=== PATIENT | male | born 1945 | race African-American/Black ===

== ENCOUNTER 2016-11-12 10:00 | Inpatient (IN) | payer MEDICARE, OTHER ==
[~2016-11-12] VITALS: Ht 185.4 cm; Wt 77.6 kg
[2016-11-12] VITALS (15 sets, daily range): BP systolic 116–137; BP diastolic 69–87; PULSE 82–110; RESP 16–22; TEMP 97.8–102.8; O2SAT 90–98
[~2016-11-12 10:00] MED LIST: ALBU0.63 NEB; ALPR.25 PO; ASCO500C PO; BACI500O9 TOPICAL; BENA25CA2 PO; CEFT500T3 PO; COLA100C3 PO; DILT30TA PO; DULO1CAP PO; FERR325T PO; FINA5TAB2 PO; FLEE5TAB PO; FLUT1INH INH; FURO1TAB62 PO; LEVO150T7 PO; MENT4GEL2 TOPICAL; NITR1SUB2 SL; NORC5TAB PO; OMNI1SUS RIGHT EYE; POLY99.0 EACH EYE; PRED20 PO; SINE25TA PO; TAMS5CAP PO
[2016-11-12] MEDS ORDERED: SODIUM CHLOR 0.9% 1000 ML INJ 400 ML IV ONE (10:26)
[2016-11-12] MEDS ORDERED: SODIUM CHLOR 0.9% 1000 ML INJ 1,000 ML IV ONE ×2 (10:26)
[2016-11-12] MEDS ORDERED: VANCOMYCIN INJ 1,000 MG in SODIUM CHLOR 0.9% 250 ML INJ 250 ML IV STA (10:26)
[2016-11-12] MEDS ORDERED: PIPERACIL-TAZO 4.5 GM PREMIX 100 ML IV STA (10:26)
[2016-11-12] MEDS ORDERED: ACETAMINOPHEN 650 MG SUPP RECTAL ONE (10:30)
--- NOTE | 2016-11-12 10:32 | PD ---
HPI Chief Complaint: Chest Pain Time Seen by Provider: 10:21 Travel History International Travel<30 days: No Contact w/Intl Traveler<30days: No Traveled to known affect area: No History of Present Illness HPI 71-year-old male came to the emergency room brought by EMS from the long-term with history of chest pain and fever. Patient has history of CVA and nonambulatory. Since this morning is been complaining of chest pain. His temperature by Jane was 101 and here it's 102.5 rectally. Patient is tachycardic. No history of vomiting or diarrhea. Patient is not much conversant and hard to get history out of. Most of the history is obtained from paramedics and the paperwork from the long-term. Patient has an indwelling Mazariegos catheter. [facility] Past Medical History Narrative Medical List of his past medical history as reviewed from the nursing note. Anemia: Yes Arthritis: Yes Asthma: Yes Atrial Fibrillation: Yes Autoimmune Disease: No Blood Disorders: Yes Anxiety: No Depression: No Heart Rhythm Problems: Yes (a-fib ) Cancer: No Cardiovascular Problems: Yes (AFIB) High Cholesterol: Yes Chemotherapy: No Chest Pain: No Congestive Heart Failure: No COPD: Yes Cerebrovascular Accident: Yes Coronary Artery Disease: No Diabetes: No Diminished Hearing: No Endocrine: Yes Gastrointestinal Disorders: Yes GERD: No Glaucoma: No Genitourinary: Yes Headaches: No Hepatitis: No Hiatal Hernia: No Hypertension: Yes Immune Disorder: No Implanted Vascular Access Dvce: Yes Kidney Stones: No Musculoskeletal: Yes Neurologic: Yes (NEUROGENIC BLADDER) Parkinson's Disease: Yes Psychiatric: No Reproductive: No Immunizations Current: No Migraines: No Myocardial Infarction: No Pneumonia: Yes Radiation Therapy: No Renal Failure: No Seizures: No Sickle Cell Disease: No Sleep Apnea: No Thyroid Disease: Yes (HYPO) Ulcer: No PNEUMOCCOCAL Vaccine (Year): 2 ?: Not Past Surgical History Abdominal Surgery: Yes AICD: No Appendectomy: Yes Arteriovenous Shunt: No Body Medical Devices: Spinal stimulator Cardiac Surgery: No Cholecystectomy: Yes Ear Surgery: No Endocrine Surgery: No Eye Surgery: No Genitourinary Surgery: No Gynecologic Surgery: No Insulin Pump: No Joint Replacement: No Neurologic Surgery: No Oral Surgery: No Pacemaker: No Thoracic Surgery: No Other Surgery: Yes (removed bones from feet, stimulator to your back, teeth extractions) Social History Alcohol Use: No Tobacco Use: No Substance Use: No Allergies-Medications (Allergen,Severity, Reaction): Coded Allergies: MRI PRECAUTION (Verified Allergy, Severe, PT HAS INTERNAL STIMULATOR (ME) , 11/12/16) Vancomycin (Verified Allergy, Mild, Rash, 11/13/16) developed hives, pruritus *MDRO Multi-Drug Resistant Organism (Verified Adverse Reaction, Unknown, ) MRSA PCR Screen positive 09/29/15. Comments List of his allergies reviewed from the long-term. Reported Meds & Prescriptions Reported Meds & Active Scripts Active Prednisone 20 Mg Tab 20 Mg PO DAILY 7 Days Reported Xanax (Alprazolam) 0.25 Mg Tab 0.25 Mg PO Q8HR PRN [place] (Hydrocodone-Acetaminophen) 5-325 mg Tab 1 Tab PO Q4H PRN Duragesic Patch 72 HR (Fentanyl) 75 Mcg/Hr Patch 75 Mcg T-DERMAL Q72H Remove old patch when new one placed. Mapap (Acetaminophen) 500 Mg Tab 500 Mg PO Q4HR PRN Duoneb (Ipratropium-Albuterol Neb) 0.5-2.5 Mg/3 Ml Neb 1 Nebule INH TID NEB Ditropan XL 24 HR (Oxybutynin Chloride) 10 Mg Tab 10 Mg PO BID Advair Diskus Inh (Fluticasone-Salmeterol Inh) 250-50 Mcg/Blist Aer 1 Puff INH BID Rinse mouth after use. Protonix Liq (Pantoprazole Sodium) 40 Mg Pkt 40 Mg PO DAILY Fluoxetine (Fluoxetine HCl) 20 Mg Cap 20 Mg PO DAILY Ferrous Sulfate 325 Mg Tab 325 Mg PO DAILY Albuterol Neb (Albuterol Sulfate) 0.63 Mg/3 Ml Neb 0.63 Mg NEB Q4HR NEB PRN Omnipred Opth Drops (Prednisolone Acetate Opth Drops) 1% Susp 1 Drop RIGHT EYE DAILY Nitroglycerin SL (Nitroglycerin) 0.3 Mg Subl 0.3 Mg SL DIRECTED PRN ONE TABLET UNDER THE TONGUE NEEDED FOR CHEST PAIN, MAY REPEAT EVERY FIVE MINUTES FOR A TOTAL OF 3 DOSES OR CALL 911 IF NO RELIEF Levothyroxine (Levothyroxine Sodium) 150 Mcg Tab 150 Mcg PO DAILY Lasix (Furosemide) 20 Mg Tab 20 Mg PO DAILY Flomax (Tamsulosin HCl) 0.4 Mg Cap 0.4 Mg PO HS Breo Ellipta Inh (Fluticasone/Vilanterol) 100-25 Mcg/Act Inh 1 Puff INH DAILY Use daily at the same time. Sinemet (Carbidopa-Levodopa) 25-100 Mg Tab 1 Tab PO Q8HR Diltiazem (Diltiazem HCl) 30 Mg Tab 30 Mg PO QID Finasteride 5 Mg Tab 5 Mg PO DAILY Do not crush. Duloxetine DR (Duloxetine HCl) 20 Mg Capdr 20 Mg PO BID Narrative Medication List of his home medications reviewed from the nursing note. Review of Systems Except as stated in HPI: all other systems reviewed are Neg Physical Exam Narrative GENERAL: Awake, alert, moderate distress, moaning, nonambulatory SKIN: Warm and dry. HEAD: Atraumatic. Normocephalic. EYES: Pupils equal and round. No scleral icterus. No injection or drainage. ENT: No nasal bleeding or discharge. Mucous membranes pink and moist. NECK: Trachea midline. No JVD. CARDIOVASCULAR: Regular rate and rhythm. No murmur appreciated. RESPIRATORY: No accessory muscle use. Clear to auscultation. Breath sounds equal bilaterally. GASTROINTESTINAL: Abdomen soft, non-tender, nondistended. Hepatic and splenic margins not palpable. MUSCULOSKELETAL: No obvious deformities. No clubbing. No cyanosis. No edema. NEUROLOGICAL: Awake and alert. No obvious cranial nerve deficits. Nonambulatory , upper and lower extremity contractures. Normal speech. PSYCHIATRIC: Appropriate mood and affect; insight and judgment normal. Data Data Last Documented VS Vital Signs Date Time Temp Pulse Resp B/P Pulse Ox O2 Delivery O2 Flow Rate FiO2 11/12/16 11:25 98.9 11/12/16 11:12 95 17 130/75 97 Nasal Cannula 2 Orders Electrocardiogram (11/12/16 ) Complete Blood Count With Diff (11/12/16 10:26) Lactic Acid Sepsis Protocol (11/12/16 10:26) Urinalysis - C+S If Indicated (11/12/16 10:26) Blood Culture (11/12/16 10:26) Chest, Single Ap (11/12/16 10:26) Blood Glucose (11/12/16 10:26) Ecg Monitoring (11/12/16 10:26) Iv Access Insert/Monitor (11/12/16 10:26) Oximetry (11/12/16 10:26) Oxygen Administration (11/12/16 10:26) Vancomycin Inj (Vancomycin Inj) (11/12/16 10:26) Piperacil-Tazo 4.5 Gm Premix (Zosyn 4.5 (11/12/16 10:26) Sodium Chlor 0.9% 1000 Ml Inj (Ns 1000 M (11/12/16 10:26) Sodium Chlor 0.9% 1000 Ml Inj (Ns 1000 M (11/12/16 10:26) Sodium Chlor 0.9% 1000 Ml Inj (Ns 1000 M (11/12/16 10:26) Acetaminophen Supp (Tylenol Supp) (11/12/16 10:30) Troponin I (11/12/16 10:31) Type And Screen (11/12/16 10:31) Comprehensive Metabolic Panel (11/12/16 10:20) Thyroid Stimulating Hormone (11/12/16 10:20) Urine Culture (11/12/16 10:20) Influenzae A/B Antigen (11/12/16 11:43) Admit Order (Ed Use Only) (11/12/16 11:54) Labs Laboratory Tests Test 11/12/16 11/12/16 10:20 10:45 White Blood Count 7.6 TH/MM3 Red Blood Count 5.09 MIL/MM3 Hemoglobin 13.8 GM/DL Hematocrit 41.6 % Mean Corpuscular Volume 81.7 FL Mean Corpuscular Hemoglobin 27.1 PG Mean Corpuscular Hemoglobin 33.2 % Concent Red Cell Distribution Width 16.9 % Platelet Count 148 TH/MM3 Mean Platelet Volume 8.2 FL Neutrophils (%) (Auto) 41.9 % Lymphocytes (%) (Auto) 41.3 % Monocytes (%) (Auto) 15.6 % Eosinophils (%) (Auto) 0.2 % Basophils (%) (Auto) 1.0 % Neutrophils # (Auto) 3.2 TH/MM3 Lymphocytes # (Auto) 3.2 TH/MM3 Monocytes # (Auto) 1.2 TH/MM3 Eosinophils # (Auto) 0.0 TH/MM3 Basophils # (Auto) 0.1 TH/MM3 CBC Comment DIFF FINAL Differential Comment Urine Color YELLOW Urine Turbidity HAZY Urine pH 7.5 Urine Specific [place] 1.022 Urine Protein 100 mg/dL Urine Glucose (UA) NEG mg/dL Urine Ketones NEG mg/dL Urine Occult Blood TRACE Urine Nitrite POS Urine Bilirubin NEG Urine Urobilinogen 4.0 MG/DL Urine Leukocyte Esterase LARGE Urine RBC 9 /hpf Urine WBC 99 /hpf Urine Squamous Epithelial <1 /hpf Cells Urine Bacteria MOD /hpf Urine Mucus MANY /lpf Microscopic Urinalysis Comment CATH-CULTURE IND Sodium Level 135 MEQ/L Potassium Level 4.4 MEQ/L Chloride Level 99 MEQ/L Carbon Dioxide Level 28.6 MEQ/L Anion Gap 7 MEQ/L Blood Urea Nitrogen 12 MG/DL Creatinine 0.87 MG/DL Estimat Glomerular Filtration 104 ML/MIN Rate Random Glucose 82 MG/DL Calcium Level 8.0 MG/DL Total Bilirubin 1.2 MG/DL Aspartate Amino Transf 114 U/L (AST/SGOT) Alanine Aminotransferase 35 U/L (ALT/SGPT) Alkaline Phosphatase 76 U/L Troponin I LESS THAN 0.02 NG/ML Total Protein 6.7 GM/DL Albumin 3.0 GM/DL Thyroid Stimulating Hormone 0.554 uIU/ML 3rd Gen Blood Type O POSITIVE Antibody Screen NEGATIVE Lactic Acid Level 0.5 mmol/L MDM Medical Decision Making Medical Screen Exam Complete: Yes Emergency Medical Condition: Yes Medical Record Reviewed: Yes Interpretation(s) Twelve-lead EKG was reviewed by me. Normal sinus rhythm, left axis deviation, tachycardia, nonspecific ST-T wave changes. Heart rate of 111 bpm. Differential Diagnosis Sepsis, UTI, pneumonia, influenza Narrative Course 11:47 AM blood test results of back. UA suggestive of UTI. Chest x-ray has a chronic left lower lobe density. He was started on sepsis protocol and fluid and antibiotics given accordingly. Awaiting for the influenza test to return. Patient will be admitted. Awaiting for the hospitalist to call back. Critical Care Narrative Aggregate critical care time was 30 minutes. Time to perform other separately billable procedures was not included in the critical care time. My time did not include minutes spent treating any other patients simultaneously or on activities that did not directly contribute to the patient's treatment. The services I provided to this patient were to treat and/or prevent clinically significant deterioration that could result in: Sepsis, sepsis protocol started I provided critical care services requiring my management, as noted below: Chart data review, documentation time, medication orders and management, vital sign assessments/reviewing monitor data, ordering and reviewing lab tests, ordering and interpreting/reviewing x-rays and diagnostic studies, care of the patient and discussion of the patient with the admitting physicians. Procedures EKG Prior to Arrival: Yes Sepsis Criteria SIRS Criteria (2 or more): Temp > 100.9 or < 96.8, Heart rate over 90 Sepsis Criteria (SIRS+source): Infect source susp/known Diagnosis Primary Impression: Sepsis Qualified Code: A41.9 - Sepsis, due to unspecified organism Additional Impressions: UTI (urinary tract infection) Qualified Code: N39.0 - Urinary tract infection without hematuria, site unspecified Chest pain Qualified Code: R07.9 - Chest pain, unspecified type Admitting Information Admitting Physician Requests: it Eliazar Mckinney MD Nov 12, 2016 10:32
[2016-11-12 10:58] LABS: AUTOMATED NEUTROPHIL # 3.2 TH/MM3 (1.8-7.7); BASOPHIL # 0.1 TH/MM3 (0-0.2); EOSINOPHIL % 0.2 % (0.0-4.0); HEMATOCRIT 41.6 % (39.0-51.0); HEMO FLAGS DIFF FINAL; LYMPH % 41.3 % (9.0-44.0); LYMPHOCYTE # 3.2 TH/MM3 (1.0-4.8); MEAN CELL VOLUME 81.7 FL (80.0-100.0); MEAN CORPUSCULAR HEMOGLOBIN 27.1 PG (27.0-34.0); MEAN CORPUSCULAR HGB CONC 33.2 % (32.0-36.0); MONO % 15.6 % (0.0-8.0); NEUT % 41.9 % (16.0-70.0); PLATELET COUNT 148 TH/MM3 (150-450); RED BLOOD COUNT 5.09 MIL/MM3 (4.50-5.90); RED CELL DISTRIBUTION WIDTH 16.9 % (11.6-17.2); WHITE BLOOD COUNT 7.6 TH/MM3 (4.0-11.0)
[2016-11-12 11:00] LABS: BACTERIA, URINE MOD /hpf; BLOOD, URINE TRACE (NEG); GLUCOSE,URINE NEG (NEG); KETONE, URINE NEG (NEG); MUCUS URINE MANY /lpf (OCC); PH, URINE 7.5 (5.0-8.5); SQUAMOUS EPITHELIAL CELL URINE <1 /hpf (0-5); URINE COLOR YELLOW (YELLW/STRAW)
[2016-11-12 11:01] LABS: COMMENT (UR) CATH-CULTURE IND; CULTURE IF INDICATED CATH CULTURE IND; NITRITE,URINE POS (NEG)
[2016-11-12] MEDS ORDERED: ADVA250A INH (11:12)
[2016-11-12] MEDS ORDERED: OXYBXL10 PO (11:12)
[2016-11-12] MEDS ORDERED: PROTPAK PO (11:12)
[2016-11-12] MEDS ORDERED: FLUO20CA4 PO (11:12)
[2016-11-12] MEDS ORDERED: IPRASOL INH (11:12)
[2016-11-12] MEDS ORDERED: MAPA500T PO (11:12)
--- NOTE | 2016-11-12 11:12 | RADRPT ---
EXAM DATE/TIME: 11/12/2016 10:51 [facility] COMPARISON: CHEST SINGLE AP, September 07, 2016, 5:02. INDICATIONS : Chest pain and shortness of breath. MEDICAL HISTORY : Cerebrovascular disease. Cardiovascular disease. Hypertension. COPD SURGICAL HISTORY : Cholecystectomy. Appendectomy. Stimulator in back. ENCOUNTER: Initial ACUITY: 1 day PAIN SCORE: 10/10 LOCATION: Chest. FINDINGS: A single view of the chest demonstrates small lung volumes with some consolidation in the right lung base stable. The cardiomediastinal contours are unremarkable. Osseous structures are intact. CONCLUSION: Small lung volumes bilaterally. Persistent increased density right lung base similar to August 2016 . Jhoan Marie MD on November 12, 2016 at 11:10 Board Certified Radiologist. This report was verified electronically.
[2016-11-12] MEDS ORDERED: FENT75T T-DERMAL (11:13)
[2016-11-12] MEDS ORDERED: NORC5TAB PO (11:16)
[2016-11-12] MEDS ORDERED: ALPR.25 PO (11:16)
[2016-11-12 11:32] LABS: ALKALINE PHOSPHATASE 76 U/L (45-117); ALT (GPT) 35 U/L (12-78); ANION GAP 7 MEQ/L (5-15); AST (GOT) 114 U/L (15-37); BICARBONATE 28.6 MEQ/L (21.0-32.0); BLOOD UREA NITROGEN 12 MG/DL (7-18); CHLORIDE 99 MEQ/L (98-107); GLOMERULAR FILTRATION RATE 104 ML/MIN (>89); POTASSIUM 4.4 MEQ/L (3.5-5.1); SODIUM (NA) 135 MEQ/L (136-145); TOTAL BILIRUBIN ADULT 1.2 MG/DL (0.2-1.0)
[2016-11-12] MEDS ORDERED: Vancomycin Consult Pharmacy 1 EA XX PRN (12:00)
[2016-11-12] MEDS ORDERED: NALOXONE HCL 0.4 MG/ML AMP IV PRN (12:00)
[2016-11-12] MEDS ORDERED: SODIUM CHLORIDE 0.9% FLUSH 5 ML FLUSH FLUSH PRN (12:00)
[2016-11-12] MEDS ORDERED: ONDANSETRON HCL 4 MG/2 ML VIAL IVP PRN (12:00)
[2016-11-12] MEDS ORDERED: RESP: ALBUTEROL 0.63 MG/3 ML NEB (PRN) NEB (12:15)
[2016-11-12] MEDS ORDERED: NITROGLYCERIN 0.3 MG SL 100 TABS/BTL SL PRN (12:15)
[2016-11-12] MEDS: RESP: ALBUTEROL 2.5 MG/IPRATROPIUM 0.5 MG NEB (SCH) INH ×2 (13:10→20:19)
[2016-11-12] MEDS: DILTIAZEM HCL 30 MG TAB PO SCH ×3 (13:34→21:06)
[2016-11-12] MEDS: HEPARIN SODIUM - SQ 10,000 UNITS/ML VIAL SQ SCH (13:34)
[2016-11-12] MEDS: CARBIDOPA/LEVODOPA 25 MG/100 MG TAB PO SCH ×2 (13:34→21:06)
[2016-11-12] MEDS: fentaNYL 75 MCG/HR PATCH T-DERMAL SCH (13:36)
[2016-11-12] MEDS ORDERED: PIPERACIL-TAZO 4.5 GM PREMIX 100 ML IV SCH (16:00)
--- NOTE | 2016-11-12 16:58 | MH ---
cc: EDWARD SLATER DATE OF ADMISSION: 11/12/2016 ADMITTING DOCTOR: Dr. Edward Slater. PRIMARY CARE DOCTOR: Dr. Jhonny Fatima. REASON FOR ADMISSION: Chest pain. HISTORY OF PRESENT ILLNESS: The patient is a 71-year-old -[place] male with significant past medical history of COPD, oxygen-dependent, also a history of respiratory failure in the past, hypothyroidism, previous CVA, hypertension and hyperlipidemia. The patient came to the ER because of the above problem. The patient was seen by the ER physician. The patient had a fever in the ER. The chest pain he was complaining about is in the middle of the chest and slightly toward the left side. It is kind of constant. It is of moderate intensity. No other associated symptoms with it. He has some shortness of breath. There is no nausea or vomiting. There is no abdominal pain. The patient has some shortness of breath. He has some wheezing. The patient is seen in the ER. PAST MEDICAL HISTORY: As described above. 1. COPD / bronchial asthma. 2. History of atrial fibrillation 3. CVA with weakness. 4. Hypothyroidism. 5. BPH. 6. Peripheral arterial disease. 7. The patient has indwelling Mazariegos catheter. 8. Parkinson's disease. 9. Neurogenic bladder with chronic indwelling Mazariegos catheter. 10. Chronic back pain post back pain stimulator 11. Arthritis. PAST SURGICAL HISTORY: 1. History of appendectomy. 2. Cholecystectomy. 3. Bilateral foot surgery. 4. Multiple tooth extractions. REVIEW OF SYSTEMS: The review of systems is as described above in the history of present illness and is negative for ten systems. SOCIAL HISTORY: He quit smoking and drinking in 1992. He does not walk. He is only able to transfer. He has a niece who is his power of contract attorney. FAMILY HISTORY: Reviewed from old records. Noncontributory. PHYSICAL EXAMINATION: GENERAL: The patient is alert and oriented x3 well-built, well-nourished lying on bed without any apparent distress with nasal cannula oxygen. VITAL SIGNS: The patient is afebrile, pulse is 82, respiratory rate 18, blood pressure 123/77, pulse ox of 97% on 2 liters. HEAD, EYES, EARS, NOSE, THROAT: Head is normocephalic and atraumatic. Eyes - negative conjunctival icterus. Mouth unremarkable. NECK: The neck is supple. No increased jugular venous distention. Negative thyromegaly. Central trachea. CHEST: Coarse entry bibasilarly. Otherwise unremarkable. No accessory muscle use. CARDIOVASCULAR: S1 and S2 audible. Unable to hear any S3 gallop. No murmur. GASTROINTESTINAL: Abdomen soft and nontender. No organomegaly. Positive bowel sounds. MUSCULOSKELETAL: Extremities have no cyanosis or pedal edema appreciated. CENTRAL NERVOUS SYSTEM: Alert and oriented times three. Normal facial features. The patient has a contracture of the right upper extremity and some of the right lower extremity. PSYCHIATRIC: Appropriate mood and affect. SKIN: Warm and dry. INVESTIGATIONS: WBCs, hemoglobin, hematocrit within normal limits. Platelet count 148,000. Sodium 135, calcium 8, total bilirubin 1.2, AST 114. Troponin less than 0.02 x2. Albumin 3. TSH 0.554. PT 13.4, INR and APTT within normal limits. The urinalysis shows urine occult blood trace, turbidity hazy, nitrites positive, leukocyte esterase is large, RBCs 9, WBCs 99, urine bacteria moderate, urine mucus many. IMAGING STUDIES: X-ray of the chest was done. Impression showed small lung volumes bilaterally and increased density in the right lung base similar to August of 2016. ASSESSMENT: 1. High-grade fever on admission with tachycardia and clinical dehydration, sepsis on admission. 2. Urosepsis. 3. Mild decrease in platelets. 4. Altered liver function tests. 5. COPD. 6. Chest pain atypical, likely musculoskeletal. 7. Hypothyroidism. 8. Neurogenic bladder with chronic indwelling Mazariegos catheter. 9. History of atrial fibrillation. 10. History of CVA with inability to ambulate 11. Parkinson's. PLAN: 1. Admit to the floor. 2. IV hydration. 3. IV antibiotic. 4. CT chest. 5. Labs in the morning, CBC and Basic metabolic profile in the morning. 6. EKG reviewed showing sinus tachycardia, unable to appreciated any S-T-T wave changes. 7. Continue some of the home medications. 8. Breathing treatments on a PRN basis. 9. Continue the steroid as he was taking at the facility. 10. Heparin for DVT prophylaxis. 11. IV antibiotics for urosepsis / opacity in lung, questionable pneumonia. 12. Proton pump inhibitor for GI prophylaxis. My partner will follow from tomorrow. Condition explained to the patient. Discussed with ER physician. Further recommendation to follow as the patient progresses. Edward Slater MD JP/DASHA /4:10 PM /4:43 PM
--- NOTE | 2016-11-12 17:02 | RADRPT ---
EXAM DATE/TIME: 11/12/2016 16:38 [facility] COMPARISON: CT THORAX W/O CONTRAST, September 29, 2015, 23:21. INDICATIONS : Short of breath, pneumonia. RADIATION DOSE: 5.23 CTDIvol (mGy) MEDICAL HISTORY : Cerebrovascular disease. Cardiovascular disease Chronic obstructive pulmonary disease. SURGICAL HISTORY : None. ENCOUNTER: Initial ACUITY: 1 day PAIN SCALE: 5/10 LOCATION: chest TECHNIQUE: Volumetric scanning of the chest was performed. Using automated exposure control and adjustment of t he mA and/or kV according to patient size, radiation dose was kept as low as reasonably achievable to obtain optimal diagnostic quality images. FINDINGS: Mild emphysematous changes are present in both lungs. Minimal bibasilar parenchymal changes are note d. There is no axillary adenopathy. There is no mediastinal adenopathy. There is no pericardial effusio n. Portion of the liver and spleen identified are free of focal defects. CONCLUSION: Mild emphysematous changes. I do not see any consolidative changes. David Gates MD FACR on November 12, 2016 at 16:51 Board Certified Radiologist. This report was verified electronically.
[2016-11-12] MEDS: PIPERACIL-TAZO 4.5 GM PREMIX 100 ML IV SCH (17:13)
[2016-11-12] MEDS: TAMSULOSIN HCL 0.4 MG CAP PO SCH (21:06)
[2016-11-12] MEDS: ALPRAZolam 0.25 MG TAB PO PRN (21:06)
[2016-11-12] MEDS: SODIUM CHLORIDE 0.9% FLUSH 5 ML FLUSH FLUSH SCH (21:09)
[2016-11-12] MEDS: BUDESONIDE-FORMOTEROL 160/4.5 MCG INHALER INH SCH (21:48)
[2016-11-12] MEDS: DULoxetine HCl DR 20 MG CAP PO SCH (21:48)
[2016-11-12] MEDS ORDERED: VANCOMYCIN INJ 1,250 MG in SODIUM CHLOR 0.9% 250 ML INJ 250 ML IV SCH (22:00)
[2016-11-12] MEDS ORDERED: diphenhydrAMINE HCL 25 MG CAP PO PRN (23:45)
[2016-11-13] VITALS (9 sets, daily range): BP systolic 113–138; BP diastolic 64–80; PULSE 97–126; RESP 18–26; TEMP 97.3–102.8; O2SAT 90–100
[2016-11-13] MEDS: PIPERACIL-TAZO 4.5 GM PREMIX 100 ML IV SCH ×5 (00:05→22:32)
[2016-11-13] MEDS: HEPARIN SODIUM - SQ 10,000 UNITS/ML VIAL SQ SCH ×3 (00:06→23:45)
[2016-11-13] MEDS: CARBIDOPA/LEVODOPA 25 MG/100 MG TAB PO SCH ×3 (05:52→21:27)
[2016-11-13 07:04] LABS: BASOPHIL % 0.9 % (0.0-2.0); EOSINOPHIL % 0.8 % (0.0-4.0); HEMATOCRIT 38.5 % (39.0-51.0); LYMPH % 15.7 % (9.0-44.0); LYMPHOCYTE # 0.8 TH/MM3 (1.0-4.8); MEAN CELL VOLUME 81.6 FL (80.0-100.0); MONO % 9.6 % (0.0-8.0); PLATELET COUNT 98 TH/MM3 (150-450); RED BLOOD COUNT 4.71 MIL/MM3 (4.50-5.90); RED CELL DISTRIBUTION WIDTH 16.5 % (11.6-17.2); WHITE BLOOD COUNT 5.4 TH/MM3 (4.0-11.0)
[2016-11-13 07:10] LABS: HEMO FLAGS AUTO DIFF
[2016-11-13 07:34] LABS: ALKALINE PHOSPHATASE 61 U/L (45-117); ALT (GPT) 45 U/L (12-78); ANION GAP 10 MEQ/L (5-15); AST (GOT) 83 U/L (15-37); BICARBONATE 25.9 MEQ/L (21.0-32.0); BLOOD UREA NITROGEN 12 MG/DL (7-18); CHLORIDE 100 MEQ/L (98-107); GLOMERULAR FILTRATION RATE 103 ML/MIN (>89); POTASSIUM 3.7 MEQ/L (3.5-5.1); SODIUM (NA) 136 MEQ/L (136-145); TOTAL BILIRUBIN ADULT 1.3 MG/DL (0.2-1.0)
[2016-11-13] MEDS: RESP: ALBUTEROL 2.5 MG/IPRATROPIUM 0.5 MG NEB (SCH) INH ×3 (07:45→21:00)
[2016-11-13] MEDS: TOLTERODINE TARTRATE 4 MG CAP LA PO SCH (08:54)
[2016-11-13] MEDS: PANTOPRAZOLE SOD 40 MG DELAYED RELEASE TAB PO SCH (08:54)
[2016-11-13] MEDS: FLUoxetine HCL 20 MG CAP PO SCH (08:54)
[2016-11-13] MEDS: FINASTERIDE 5 MG TAB PO SCH (08:54)
[2016-11-13] MEDS: SODIUM CHLORIDE 0.9% FLUSH 5 ML FLUSH FLUSH SCH ×2 (08:54→21:29)
[2016-11-13] MEDS: DULoxetine HCl DR 20 MG CAP PO SCH ×2 (08:54→21:28)
[2016-11-13] MEDS: FERROUS SULFATE 325 MG (65 MG ELEMENTAL IRON) TAB PO SCH (08:55)
[2016-11-13] MEDS: DILTIAZEM HCL 30 MG TAB PO SCH ×4 (08:55→21:27)
[2016-11-13] MEDS: BUDESONIDE-FORMOTEROL 160/4.5 MCG INHALER INH SCH ×2 (08:55→21:29)
[2016-11-13] MEDS: FUROSEMIDE 20 MG TAB PO SCH (08:55)
[2016-11-13] MEDS: FLUTICASONE 100 MCG/VILANTEROL 25 MCG INHALER INH SCH (08:58)
[2016-11-13] MEDS: prednisoLONE ACETATE 1% OPHT SUSP 5 ML BTL RIGHT EYE SCH (08:58)
[2016-11-13] MEDS ORDERED: predniSONE 20 MG TAB PO SCH (09:00)
[2016-11-13 09:06] LABS: PLATELET ESTIMATE SMEAR LOW (NORMAL); PLATELET MORPHOLOGY NORMAL (NORMAL); SCAN/DIFF AUTO DIFF CONFIRMED
--- NOTE | 2016-11-13 12:00 | HHI.PR ---
Subjective Subjective Remarks c/o sob, wheezing "I just don't feel well" awake, oriented x 2 per nursing, had itching, ?hives after Vanco last night no fever had trouble swallowing pills and eating Review of Systems Constitutional Constitutional Remarks 12 point ROS incomplete Vitals/Results Intake & Output 11/12/16 11/12/16 11/13/16 15:00 23:00 07:00 Intake Total 100 ml 100 ml Output Total 650 ml 500 ml Balance -550 ml -400 ml Intake Oral 100 ml 100 ml Output Urine Total 650 ml 500 ml # Voids 0 # Bowel Movements 0 0 Vital Signs Vital Signs Date Time Temp Pulse Resp B/P Pulse Ox O2 Delivery O2 Flow Rate FiO2 11/13/16 08:00 98.2 117 24 119/72 97 11/13/16 07:47 92 Nasal Cannula 2.00 11/13/16 00:00 97.3 97 18 113/76 100 11/12/16 20:22 93 Nasal Cannula 2.00 11/12/16 20:00 98.3 99 17 116/69 98 11/12/16 20:00 Nasal Cannula 2.00 11/12/16 19:51 82 11/12/16 18:15 97.8 99 22 137/81 93 11/12/16 17:13 98.2 82 16 126/77 97 Nasal Cannula 2 11/12/16 15:30 82 18 123/77 97 Nasal Cannula 2 11/12/16 14:30 86 16 125/78 98 Nasal Cannula 2 11/12/16 14:18 16 11/12/16 13:20 90 16 126/77 97 Nasal Cannula 2 11/12/16 12:30 88 17 123/78 97 Nasal Cannula 2 CBC/BMP: 11/13/16 0629 11/13/16 0639 Lab Results Laboratory Tests Test 11/12/16 11/12/16 11/13/16 11/13/16 13:30 16:00 06:29 06:39 Troponin I 0.02 NG/ML LESS THAN 0.02 NG/ML White Blood Count 5.4 TH/MM3 Red Blood Count 4.71 MIL/MM3 Hemoglobin 12.7 GM/DL Hematocrit 38.5 % Mean Corpuscular Volume 81.6 FL Mean Corpuscular Hemoglobin 27.0 PG Mean Corpuscular Hemoglobin 33.0 % Concent Red Cell Distribution Width 16.5 % Platelet Count 98 TH/MM3 Mean Platelet Volume 8.1 FL Neutrophils (%) (Auto) 73.0 % Lymphocytes (%) (Auto) 15.7 % Monocytes (%) (Auto) 9.6 % Eosinophils (%) (Auto) 0.8 % Basophils (%) (Auto) 0.9 % Neutrophils # (Auto) 4.0 TH/MM3 Lymphocytes # (Auto) 0.8 TH/MM3 Monocytes # (Auto) 0.5 TH/MM3 Eosinophils # (Auto) 0.0 TH/MM3 Basophils # (Auto) 0.0 TH/MM3 CBC Comment AUTO DIFF Differential Comment AUTO DIFF CONFIRMED Platelet Estimate LOW Platelet Morphology Comment NORMAL Red Cell Morphology Comment NORMAL Sodium Level 136 MEQ/L Potassium Level 3.7 MEQ/L Chloride Level 100 MEQ/L Carbon Dioxide Level 25.9 MEQ/L Anion Gap 10 MEQ/L Blood Urea Nitrogen 12 MG/DL Creatinine 0.88 MG/DL Estimat Glomerular Filtration 103 ML/MIN Rate Random Glucose 63 MG/DL Calcium Level 7.8 MG/DL Total Bilirubin 1.3 MG/DL Aspartate Amino Transf 83 U/L (AST/SGOT) Alanine Aminotransferase 45 U/L (ALT/SGPT) Alkaline Phosphatase 61 U/L Total Protein 6.2 GM/DL Albumin 3.0 GM/DL Physical Exam General General Appearance: Well Developed, Anxious Eyes Eye Exam: Pupils Equal, Pupils Reactive Ears & Nose Ears & Nose Exam: Nasal Mucosa [place] Throat Throat Exam: Oral Mucosa [place] & Moist Neck Neck Exam: Neck Supple, Trachea Midline Pulmonary Resp Remarks diffuse exp. 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 UTI, chronic indwelling catheter, poss. PNA -continue abx -follow cultures -had rash after vanco, continue Benadryl PRN. DC vanco, add as allergy. UTI, recurrent -continue antibiotics COPD exacerbation, poss. PNA -continue oxygen -Duonebs -PO Prednisone -will give Solumedrol 80 mg IVP x 1 now Chronic indwelling cath, neurogenic bladder -continue with rey Thrombocytopenia, poss. sec. sepsis, on Heparin -CBC in am -if he continues to drop, will check HIT Lumbar stenosis, non ambulatory -PT eval and tx Heparin for DVT prophylaxis. Proton pump inhibitor for GI prophylaxis. Swallow eval today Labs in am DNR status Condition guarded D/W RN D/W Dr. Slater D/W pt. This pt. was seen by myself and Dr. Slater, this note is written on his behalf. Problem Qualifiers (1) Sepsis: Qualified Code: A41.9 - Sepsis, due to unspecified organism (2) UTI (urinary tract infection): Qualified Code: T83.511S - Urinary tract infection associated with indwelling urethral catheter, sequela (3) Peripheral neuropathy: Qualified Code: G62.9 - Peripheral polyneuropathy (4) Hypertension: Qualified Code: I10 - Essential hypertension (5) BPH (benign prostatic hyperplasia): Qualified Code: N40.0 - Benign prostatic hyperplasia, presence of lower urinary tract symptoms unspecified, unspecified morphology (6) GERD (gastroesophageal reflux disease): Qualified Code: K21.9 - Gastroesophageal reflux disease without esophagitis (7) Hyperlipidemia: Qualified Code: E78.5 - Hyperlipidemia, unspecified hyperlipidemia type Mar Malloy Nov 13, 2016 12:00
[2016-11-13] MEDS: ACETAMINOPHEN 325 MG TAB PO PRN ×2 (12:31→23:44)
[2016-11-13] MEDS ORDERED: methylPREDNISolone SOD SUCC 40 MG/1 ML VIAL IV PUSH ONE (13:00)
[2016-11-13 14:56] LABS: BLOOD GAS BASE EXCESS 1.3 mmol/L (-2-2); BLOOD GAS CARBOXYHEMOGLOBIN 1.5 % (0-4); BLOOD GAS HCO3 25 mmol/L (22-26); BLOOD GAS O2 HGB SATURATION 87 % (90-100); BLOOD GAS OXYGEN CONTENT 16.3 Vol % (12.0-20.0); BLOOD GAS PCO2 36 mmHg (38-42); BLOOD GAS PO2 53 mmHg (61-120); BLOOD GAS TOTAL HGB 13.4 G/DL (12.0-16.0); TEMP CORR TO 98.6
[2016-11-13 14:58] LABS: CRITICAL VALUE YES; DRAW SITE RT FEMORAL; LITER FLOW 4 L/M; NUMBER OF ARTERIAL PUNCTURES 1; OXYGEN DEVICE NASAL CANNULA
[2016-11-13 14:59] LABS: STAT NO
--- NOTE | 2016-11-13 15:31 | RADRPT ---
EXAM DATE/TIME: 11/13/2016 15:12 [facility] COMPARISON: CHEST SINGLE AP, September 07, 2016, 5:02. CT THORAX W/O CONTRAST, November 12, 2016, 16:38. CHEST SI NGLE AP, November 12, 2016, 10:51. INDICATIONS : Short of breath MEDICAL HISTORY : Cerebrovascular disease. Cardiovascular disease. Chronic obstructive pulmonary disease. hypertens ion, stroke SURGICAL HISTORY : Cholecystectomy. Appendectomy. ENCOUNTER: Subsequent ACUITY: 3 days PAIN SCORE: Non-responsive. LOCATION: Bilateral chest FINDINGS: A single view of the chest demonstrates an infiltrate in the right lung base suggestive of atelectasi s. The left lung is grossly clear. The heart size is stable. There are no pleural effusions. The bony structures are stable.. CONCLUSION: Right lower lung infiltrate suggestive atelectasis. Rosalio English MD on November 13, 2016 at 15:27 Board Certified Radiologist. This report was verified electronically.
[2016-11-13] MEDS ORDERED: DILTIAZEM HCL 25 MG/5 ML VIAL IV ONE (17:00)
[2016-11-13] MEDS: metroNIDAZOLE 500 MG INJ 100 ML IV SCH ×2 (17:08→23:44)
[2016-11-13 18:02] LABS: BLOOD GAS BASE EXCESS 0.9 mmol/L (-2-2); BLOOD GAS CARBOXYHEMOGLOBIN 1.2 % (0-4); BLOOD GAS HCO3 25 mmol/L (22-26); BLOOD GAS METHEMOGLOBIN 0.9 % (0-2); BLOOD GAS O2 HGB SATURATION 95 % (90-100); BLOOD GAS OXYGEN CONTENT 17.9 Vol % (12.0-20.0); BLOOD GAS PCO2 38 mmHg (38-42); BLOOD GAS PO2 90 mmHg (61-120); BLOOD GAS TOTAL HGB 13.4 G/DL (12.0-16.0); CRITICAL VALUE NO; TEMP CORR TO 98.6
[2016-11-13 18:03] LABS: DRAW SITE LT BRACHIAL; FIO2 50 %; NUMBER OF ARTERIAL PUNCTURES 1; OXYGEN DEVICE Venti Mask; STAT NO
--- NOTE | 2016-11-13 19:39 | EKG ---
Date Performed: 11/12/2016 Time Performed: 13:49:56 PTAGE: 71 years EKG: Sinus rhythm NORMAL ECG PREVIOUS TRACING : 11/12/2016 13.36 DOCTOR: Moy Blake Interpretating Date/Time 11/13/2016 19:34:50
--- NOTE | 2016-11-13 19:45 | EKG ---
Date Performed: 11/12/2016 Time Performed: 10:11:38 PTAGE: 71 years EKG: SINUS TACHYCARDIA ABNORMAL RHYTHM ECG PREVIOUS TRACING : 09/07/2016 04.42 DOCTOR: Moy Blake Interpretating Date/Time 11/13/2016 19:39:05
[2016-11-13] MEDS: TAMSULOSIN HCL 0.4 MG CAP PO SCH (21:27)
[2016-11-13] MEDS: methylPREDNISolone SOD SUCC 40 MG/1 ML VIAL IV PUSH SCH (21:29)
[2016-11-13] MEDS: DILTIAZEM 125 MG/NS 100 ML IV SCH ×2 (23:13)
[2016-11-14] VITALS (11 sets, daily range): BP systolic 103–143; BP diastolic 58–77; PULSE 97–123; RESP 20–24; TEMP 98.5–102.9; O2SAT 94–99
[2016-11-14] MEDS: PIPERACIL-TAZO 4.5 GM PREMIX 100 ML IV SCH ×4 (04:32→22:18)
[2016-11-14] MEDS: CARBIDOPA/LEVODOPA 25 MG/100 MG TAB PO SCH ×3 (05:44→22:00)
[2016-11-14] MEDS: methylPREDNISolone SOD SUCC 40 MG/1 ML VIAL IV PUSH SCH ×3 (05:44→22:20)
[2016-11-14] MEDS: LEVOTHYROXINE SODIUM 150 MCG TAB PO SCH (05:45)
[2016-11-14] MEDS: ACETAMINOPHEN 325 MG TAB PO PRN ×4 (05:45→16:31)
[2016-11-14 06:51] LABS: HEMATOCRIT 39.9 % (39.0-51.0); MEAN CELL VOLUME 81.6 FL (80.0-100.0); MEAN CORPUSCULAR HEMOGLOBIN 26.8 PG (27.0-34.0); MEAN CORPUSCULAR HGB CONC 32.8 % (32.0-36.0); PLATELET COUNT 77 TH/MM3 (150-450); RED BLOOD COUNT 4.89 MIL/MM3 (4.50-5.90); RED CELL DISTRIBUTION WIDTH 16.7 % (11.6-17.2); WHITE BLOOD COUNT 3.7 TH/MM3 (4.0-11.0)
[2016-11-14 07:14] LABS: REVIEW FLAG FINAL
[2016-11-14 07:20] LABS: BICARBONATE 27.2 MEQ/L (21.0-32.0); POTASSIUM 3.3 MEQ/L (3.5-5.1)
[2016-11-14] MEDS: RESP: ALBUTEROL 2.5 MG/IPRATROPIUM 0.5 MG NEB (SCH) INH ×3 (07:26→19:44)
[2016-11-14] MEDS: DULoxetine HCl DR 20 MG CAP PO SCH ×2 (08:54→21:00)
[2016-11-14] MEDS: SODIUM CHLORIDE 0.9% FLUSH 5 ML FLUSH FLUSH SCH ×2 (08:54→22:27)
[2016-11-14] MEDS: TOLTERODINE TARTRATE 4 MG CAP LA PO SCH (08:54)
[2016-11-14] MEDS: metroNIDAZOLE 500 MG INJ 100 ML IV SCH ×3 (08:54→22:26)
[2016-11-14] MEDS: FUROSEMIDE 20 MG TAB PO SCH (08:55)
[2016-11-14] MEDS: FERROUS SULFATE 325 MG (65 MG ELEMENTAL IRON) TAB PO SCH (08:55)
[2016-11-14] MEDS: FLUoxetine HCL 20 MG CAP PO SCH (08:55)
[2016-11-14] MEDS: FINASTERIDE 5 MG TAB PO SCH (08:55)
[2016-11-14] MEDS: PANTOPRAZOLE SOD 40 MG DELAYED RELEASE TAB PO SCH (08:55)
[2016-11-14] MEDS ORDERED: POTASSIUM CL 40 MEQ/30 ML LIQ UDC PO ONE (09:00)
[2016-11-14] MEDS: ALPRAZolam 0.25 MG TAB PO PRN (09:10)
--- NOTE | 2016-11-14 09:18 | HHI.PR ---
Subjective Subjective Remarks not feeling well oriented to place, year, situation c/o anxiety wheezing HR elevated yesterday, up to 150, on Cardizem gtt at 15/hr has been spiking fevers no pain tele reviewed, ST 125 Review of Systems Constitutional Constitutional Remarks 12 point ROS difficult to complete, as above Vitals/Results Intake & Output 11/13/16 11/13/16 11/14/16 15:00 23:00 07:00 Intake Total 0 ml 0 ml Output Total 1200 ml 300 ml 200 ml Balance -1200 ml -300 ml -200 ml Intake Oral 0 ml 0 ml Output Urine Total 1200 ml 300 ml 200 ml # Bowel Movements 0 0 Vital Signs Vital Signs Date Time Temp Pulse Resp B/P Pulse Ox O2 Delivery O2 Flow Rate FiO2 11/14/16 08:00 102.9 123 22 103/77 96 11/14/16 07:30 96 Nasal Cannula 3.00 11/14/16 04:12 100.5 122 22 143/75 99 11/14/16 01:00 102.1 11/14/16 00:15 117 134/77 11/13/16 23:50 115 127/80 11/13/16 23:20 102.8 116 20 127/73 93 11/13/16 23:20 102.8 116 20 127/73 95 11/13/16 21:05 99.3 113 26 121/75 98 11/13/16 21:00 95 11/13/16 20:15 Venturi Mask 5.00 50 11/13/16 17:41 92 Venturi Mask 50 11/13/16 16:00 98.2 126 20 138/73 96 11/13/16 12:00 101.3 123 20 116/64 90 CBC/BMP: 11/14/16 0543 11/14/16 0543 Lab Results Laboratory Tests Test 11/13/16 11/13/16 11/13/16 11/13/16 14:42 15:05 17:15 17:58 Blood Gas Puncture Site RT FEMORAL LT BRACHIAL Blood Gas Patient Temperature 98.6 98.6 Blood Gas HCO3 25 mmol/L 25 mmol/L Blood Gas Base Excess 1.3 mmol/L 0.9 mmol/L Blood Gas Oxygen Saturation 87 % 95 % Arterial Blood pH 7.45 7.43 Arterial Blood Partial 36 mmHg 38 mmHg Pressure CO2 Arterial Blood Partial 53 mmHg 90 mmHg Pressure O2 Arterial Blood Oxygen Content 16.3 Vol % 17.9 Vol % Arterial Blood 1.5 % 1.2 % Carboxyhemoglobin Arterial Blood Methemoglobin 0.0 % 0.9 % Blood Gas Hemoglobin 13.4 G/DL 13.4 G/DL Oxygen Delivery Device NASAL CANNULA Venti Mask Blood Gas Liter Flow 4 L/M Lactic Acid Level 1.6 mmol/L Nasal Screen MRSA (PCR) POSITIVE Blood Gas Inspired Oxygen 50 % Test 11/14/16 05:43 White Blood Count 3.7 TH/MM3 Red Blood Count 4.89 MIL/MM3 Hemoglobin 13.1 GM/DL Hematocrit 39.9 % Mean Corpuscular Volume 81.6 FL Mean Corpuscular Hemoglobin 26.8 PG Mean Corpuscular Hemoglobin 32.8 % Concent Red Cell Distribution Width 16.7 % Platelet Count 77 TH/MM3 Mean Platelet Volume 8.0 FL Sodium Level 135 MEQ/L Potassium Level 3.3 MEQ/L Chloride Level 96 MEQ/L Carbon Dioxide Level 27.2 MEQ/L Anion Gap 12 MEQ/L Blood Urea Nitrogen 17 MG/DL Creatinine 1.09 MG/DL Estimat Glomerular Filtration 80 ML/MIN Rate Random Glucose 128 MG/DL Calcium Level 8.1 MG/DL Physical Exam General General Appearance: Well Developed, Anxious Eyes Eye Exam: Pupils Equal, Pupils Reactive Ears & Nose Ears & Nose Exam: Nasal Mucosa [place] Throat Throat Exam: Oral Mucosa [place] & Moist Neck Neck Exam: Neck Supple, Trachea Midline Pulmonary Resp Remarks diffuse exp. 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 UTI, chronic indwelling catheter, poss. PNA 11/14-febrile, inc. sob, tachy -continue abx -follow cultures -had rash after vanco, continue Benadryl PRN. DC'd vanco, added as allergy. -Added Flagyl, concerned about poss. aspiration. UTI, recurrent, GNR -continue antibiotics COPD exacerbation, poss. PNA, with exacerbation. -continue oxygen -Duonebs -IV Solumedrol 60 mg q 8 -Pulmonary consult pending Chronic indwelling cath, neurogenic bladder -continue with rey Thrombocytopenia, poss. sec. sepsis, on Heparin, plat today 77,000 -CBC in am -hold Heparin -check HIT now Lumbar stenosis, non ambulatory -PT eval and tx Heparin for DVT prophylaxis. Proton pump inhibitor for GI prophylaxis. swallow eval recommendations noted Replace K DNR status Condition guarded D/W RN D/W Dr. Turk D/W pt. This pt. was seen by myself and Dr. Turk, this note is written on his behalf. Problem Qualifiers (1) Sepsis: Qualified Code: A41.9 - Sepsis, due to unspecified organism (2) UTI (urinary tract infection): Qualified Code: T83.511S - Urinary tract infection associated with indwelling urethral catheter, sequela (3) Peripheral neuropathy: Qualified Code: G62.9 - Peripheral polyneuropathy (4) Hypertension: Qualified Code: I10 - Essential hypertension (5) BPH (benign prostatic hyperplasia): Qualified Code: N40.0 - Benign prostatic hyperplasia, presence of lower urinary tract symptoms unspecified, unspecified morphology (6) GERD (gastroesophageal reflux disease): Qualified Code: K21.9 - Gastroesophageal reflux disease without esophagitis (7) Hyperlipidemia: Qualified Code: E78.5 - Hyperlipidemia, unspecified hyperlipidemia type Mar Malloy Nov 14, 2016 09:17
--- NOTE | 2016-11-14 09:21 | MB ---
cc: MASOOD MEDRANO MD DATE OF CONSULTATION 11/13/[address] Luis Eduardo Slater REASON FOR CONSULTATION Shortness of breath. HISTORY OF PRESENT ILLNESS Mr. Brennan is a pleasant 71-year-old -[place] male who is known to me from the previous admission, also from the history. He is at [facility]. He uses oxygen all the time and he is wheelchair bound. The patient was brought to the hospital with worsening of his shortness of breath and his chest discomfort. He has cough, no sputum production, no fever or chills, no night sweats. The patient was evaluated in the hospital. He had a CT scan of the chest done which showed mild emphysematous changes. No consolidative changes were seen. His blood gas on 4 liters nasal showed a pH of 7.44, pCO2 36, pO2 53, bicarb 25. On 50% Ventimask repeat blood gas showed a pH of 7.43, pCO2 38, pO2 90, bicarb 25. His CBC shows WBC count 5.4, hemoglobin 12.7, hematocrit 38.5, MCH 27, platelet count 148. Sodium 136, potassium 3.7, chloride 100, CO2 26, BUN 12, creatinine 0.88. PAST MEDICAL HISTORY Significant for - 1. Long history of COPD, oxygen dependent. 2. History of CVA. 3. Parkinson's disease. 4. Peripheral arterial disease. 5. BPH. 6. Chronic back pain. 7. History of cholecystectomy. 8. Foot surgery. MEDICATIONS He is currently taking - 1. Solu-Medrol 60 mg q. 8-hour. 2. Flagyl I.V. q.8 hours. 3. Ferrous sulfate 325 mg daily. 4. Finasteride 5 mg a day. 5. Prozac 20 mg a day. 6. Breo Ellipta 100/25 once a day. 7. Lasix 20 mg a day. 8. Prednisone eye drops. 9. Detrol LA 4 mg daily. 10. Levothyroxine 150 mcg a day. 11. Benadryl 25 mg p.r.n. 12. Symbicort 2 puffs twice a day. 13. Zosyn IV. 14. Sinemet 25/100 q.8 hours. 15. Fentanyl patch 75 mcg q. 72-hours. 16. Albuterol/Atrovent nebulizer treatment. 17. Diltiazem 30 mg q.i.d. 18. [place] for pain. ALLERGIES VANCOMYCIN. SOCIAL HISTORY He lives in the retirement. History of smoking in the past. FAMILY HISTORY Noncontributory. REVIEW OF SYSTEMS He uses nasal oxygen all the time. Has indwelling Mazariegos catheter. History of stroke. PHYSICAL EXAMINATION GENERAL: An elderly male. Mild short of breath. VITAL SIGNS: Blood pressure 138/73, heart rate 120, respirations 20, temperature 98.2. T-max 101.3. HEENT EXAMINATION: Pupils are equal and react to light. Oral mucosa, nasal mucosa normal. NECK: Supple. JVP not raised. CHEST: Equal bilaterally. Has a few rhonchi. CV: S1 and S2 normal. ABDOMEN: Benign. EXTREMITIES: No edema. IMPRESSION 1. COPD, mild exacerbation. 2. Bronchitis. 3. Chest pain. 4. Sinus tachycardia. 5. History of CVA. 6. BPH. PLAN 1. I discussed with the patient. He is on Ventimask. Continue O2 supplemental oxygen. He is on continuous pulse ox and keep the saturation greater than 90%. 2. Continue IV Solu-Medrol, IV Zosyn. 3. Continues Symbicort. 4. I will discontinue his p.o. duplication of the medication. 5. He is on Cardizem for rate control. 6. Further treatment will depend the course in the hospital. Thank you Dr. Slater for this consultation. MD ELKIN [place]/SSB /6:44 PM /8:59 AM
[2016-11-14] MEDS: DILTIAZEM 125 MG/NS 100 ML IV SCH ×4 (09:26→18:47)
[2016-11-14] MEDS: FLUTICASONE 100 MCG/VILANTEROL 25 MCG INHALER INH SCH (09:28)
[2016-11-14] MEDS: prednisoLONE ACETATE 1% OPHT SUSP 5 ML BTL RIGHT EYE SCH (09:28)
[2016-11-14] MEDS: BUDESONIDE-FORMOTEROL 160/4.5 MCG INHALER INH SCH ×2 (09:28→21:00)
[2016-11-14] MEDS ORDERED: PHARMACY ORDERED LAB XX ONE (09:45)
--- NOTE | 2016-11-14 10:17 | EKG ---
Date Performed: 11/13/2016 Time Performed: 15:36:42 PTAGE: 71 years EKG: Atrial fibrillation with rapid v. response Compared to the PREVIOUS TRACING , the atrial fibrillation with rvr is new PREVIOUS TRACIN11/12/2016 1 3.49 DOCTOR: Wisam Saba Interpretating Date/Time 11/14/2016 10:15:46
[2016-11-14] MEDS: DILTIAZEM HCL 60 MG TAB PO SCH ×3 (12:48→21:00)
--- NOTE | 2016-11-14 18:41 | HHI.PR ---
Subjective Remarks YO AA male with COPD,Fever, sob HR high on cardiazem drip Spiked fever today UC Gram neg rods Mild sob and wheezing Objective Vital Signs Vital Signs Date Time Temp Pulse Resp B/P Pulse Ox O2 Delivery O2 Flow Rate FiO2 11/14/16 16:00 99.2 103 20 114/58 94 11/14/16 12:26 94 Nasal Cannula 3.00 11/14/16 12:00 102.0 116 22 122/69 94 11/14/16 08:15 119 11/14/16 08:00 102.9 123 22 103/77 96 11/14/16 07:30 96 Nasal Cannula 3.00 11/14/16 04:12 100.5 122 22 143/75 99 11/14/16 01:00 102.1 11/14/16 00:15 117 134/77 11/13/16 23:50 115 127/80 11/13/16 23:20 102.8 116 20 127/73 93 11/13/16 23:20 102.8 116 20 127/73 95 11/13/16 21:05 99.3 113 26 121/75 98 11/13/16 21:00 95 11/13/16 20:15 Venturi Mask 5.00 50 I/O 11/13/16 11/13/16 11/13/16 11/14/16 11/14/16 11/14/16 07:00 15:00 23:00 07:00 15:00 23:00 Intake Total 100 ml 0 ml 0 ml 680 ml Output Total 500 ml 1200 ml 300 ml 200 ml 650 ml Balance -400 ml -1200 ml -300 ml -200 ml 30 ml Intake Oral 100 ml 0 ml 0 ml 360 ml IV Total 320 ml Output Urine Total 500 ml 1200 ml 300 ml 200 ml 650 ml # Bowel Movements 0 0 0 0 Result Diagram: 11/14/1643 11/14/1643 Objective Remarks GENERAL: MBMN Male mild sob SKIN: Warm and dry. HEAD: Normocephalic. EYES: No scleral icterus. No injection or drainage. NECK: Supple, trachea midline. No JVD or lymphadenopathy. CARDIOVASCULAR: Regular rate and rhythm without murmurs, gallops, or rubs. RESPIRATORY: Breath sounds equal bilaterally. No accessory muscle use. GASTROINTESTINAL: Abdomen soft, non-tender, nondistended. MUSCULOSKELETAL: No cyanosis, or edema. BACK: Nontender without obvious deformity. No CVA tenderness. A/P Assessment and Plan COPD exac UTI Sepsis Techycardia CVA Indwelling Mazariegos PLAN: IV Solumedrol Aerosol nebs Cont Abx Zosyn Check cultures Cardiazem for HR controll. Darrick Roberson MD Nov 14, 2016 18:41
[2016-11-14] MEDS: TAMSULOSIN HCL 0.4 MG CAP PO SCH (21:00)
[2016-11-15] VITALS (13 sets, daily range): BP systolic 118–140; BP diastolic 72–83; PULSE 87–104; RESP 20–24; TEMP 97.6–99.3; O2SAT 94–100
[2016-11-15] MEDS: PIPERACIL-TAZO 4.5 GM PREMIX 100 ML IV SCH ×2 (04:41→12:33)
[2016-11-15] MEDS: methylPREDNISolone SOD SUCC 40 MG/1 ML VIAL IV PUSH SCH ×3 (04:42→22:43)
[2016-11-15] MEDS: DILTIAZEM 125 MG/NS 100 ML IV SCH ×4 (04:52→12:40)
[2016-11-15] MEDS: LEVOTHYROXINE SODIUM 150 MCG TAB PO SCH (06:18)
[2016-11-15] MEDS: CARBIDOPA/LEVODOPA 25 MG/100 MG TAB PO SCH ×3 (06:18→22:44)
[2016-11-15 07:27] LABS: HEMATOCRIT 40.1 % (39.0-51.0); MEAN CELL VOLUME 81.5 FL (80.0-100.0); MEAN CORPUSCULAR HEMOGLOBIN 26.8 PG (27.0-34.0); MEAN CORPUSCULAR HGB CONC 32.9 % (32.0-36.0); PLATELET COUNT 81 TH/MM3 (150-450); RED BLOOD COUNT 4.91 MIL/MM3 (4.50-5.90); RED CELL DISTRIBUTION WIDTH 16.3 % (11.6-17.2); WHITE BLOOD COUNT 7.8 TH/MM3 (4.0-11.0)
[2016-11-15 07:31] LABS: REVIEW FLAG FINAL
[2016-11-15 07:53] LABS: BICARBONATE 29.4 MEQ/L (21.0-32.0); MAGNESIUM 2.4 MG/DL (1.5-2.5); POTASSIUM 3.6 MEQ/L (3.5-5.1)
[2016-11-15] MEDS: RESP: ALBUTEROL 2.5 MG/IPRATROPIUM 0.5 MG NEB (SCH) INH ×3 (08:33→19:56)
[2016-11-15] MEDS: DILTIAZEM HCL 60 MG TAB PO SCH ×2 (08:40→12:33)
[2016-11-15] MEDS: PANTOPRAZOLE SOD 40 MG DELAYED RELEASE TAB PO SCH (08:40)
[2016-11-15] MEDS: FINASTERIDE 5 MG TAB PO SCH (08:40)
[2016-11-15] MEDS: FERROUS SULFATE 325 MG (65 MG ELEMENTAL IRON) TAB PO SCH (08:41)
[2016-11-15] MEDS: TOLTERODINE TARTRATE 4 MG CAP LA PO SCH (08:41)
[2016-11-15] MEDS: metroNIDAZOLE 500 MG INJ 100 ML IV SCH ×3 (08:41→23:02)
[2016-11-15] MEDS: DULoxetine HCl DR 20 MG CAP PO SCH ×2 (08:41→22:43)
[2016-11-15] MEDS: SODIUM CHLORIDE 0.9% FLUSH 5 ML FLUSH FLUSH SCH ×2 (08:41→22:44)
[2016-11-15] MEDS: FLUTICASONE 100 MCG/VILANTEROL 25 MCG INHALER INH SCH (08:41)
[2016-11-15] MEDS: FUROSEMIDE 20 MG TAB PO SCH (08:41)
[2016-11-15] MEDS: FLUoxetine HCL 20 MG CAP PO SCH (08:41)
[2016-11-15] MEDS: BUDESONIDE-FORMOTEROL 160/4.5 MCG INHALER INH SCH ×2 (08:42→22:45)
[2016-11-15] MEDS: prednisoLONE ACETATE 1% OPHT SUSP 5 ML BTL RIGHT EYE SCH (08:42)
[2016-11-15] MEDS: fentaNYL 75 MCG/HR PATCH T-DERMAL SCH (12:35)
--- NOTE | 2016-11-15 13:36 | HHI.PR ---
Subjective Subjective Remarks less wheezing and SOB still feels poorly asking when he is going back to SNF down to 3L/NC, sats 90 no fever HR improved, 100, ST Cardizem gtt at 15/hr Review of Systems Constitutional Constitutional Remarks 12 point ROS completed, unreliable Vitals/Results Intake & Output 11/14/16 11/14/16 11/15/16 15:00 23:00 07:00 Intake Total 680 ml 0 ml 0 ml Output Total 650 ml 150 ml 225 ml Balance 30 ml -150 ml -225 ml Intake Oral 360 ml 0 ml 0 ml IV Total 320 ml Output Urine Total 650 ml 150 ml 225 ml # Bowel Movements 0 0 0 Vital Signs Vital Signs Date Time Temp Pulse Resp B/P Pulse Ox O2 Delivery O2 Flow Rate FiO2 11/15/16 09:17 Nasal Cannula 3.00 50 11/15/16 08:33 97 Nasal Cannula 3.00 11/15/16 08:00 97.6 102 20 139/79 94 11/15/16 04:02 98.4 94 24 122/72 96 11/15/16 02:30 98.5 100 24 134/77 100 11/14/16 20:30 Nasal Cannula 3.00 11/14/16 20:05 98.5 102 24 127/64 95 11/14/16 19:46 98 Nasal Cannula 3.00 11/14/16 16:00 99.2 103 20 114/58 94 CBC/BMP: 11/15/16 0642 11/15/16 0642 Lab Results Laboratory Tests Test 11/15/16 06:42 White Blood Count 7.8 TH/MM3 Red Blood Count 4.91 MIL/MM3 Hemoglobin 13.2 GM/DL Hematocrit 40.1 % Mean Corpuscular Volume 81.5 FL Mean Corpuscular Hemoglobin 26.8 PG Mean Corpuscular Hemoglobin 32.9 % Concent Red Cell Distribution Width 16.3 % Platelet Count 81 TH/MM3 Mean Platelet Volume 8.1 FL Sodium Level 136 MEQ/L Potassium Level 3.6 MEQ/L Chloride Level 96 MEQ/L Carbon Dioxide Level 29.4 MEQ/L Anion Gap 11 MEQ/L Blood Urea Nitrogen 18 MG/DL Creatinine 1.01 MG/DL Estimat Glomerular Filtration 88 ML/MIN Rate Random Glucose 187 MG/DL Calcium Level 8.0 MG/DL Magnesium Level 2.4 MG/DL Physical Exam General General Appearance: Well Developed, Anxious Eyes Eye Exam: Pupils Equal, Pupils Reactive Ears & Nose Ears & Nose Exam: Nasal Mucosa [place] Throat Throat Exam: Oral Mucosa [place] & Moist Neck Neck Exam: Neck Supple, Trachea Midline Pulmonary Resp Remarks diffuse exp. wheeze Cardiology CV Exam: Regular, Tachycardia Gastrointestinal/Abdomen GI Exam: Soft, Non-Tender, Bowel Sounds Present, Non-Distended Genitourinary Remarks REY Musculoskeletal MS Exam: Atrophy, Unable to Ambulate MS Remarks contractures hands, wrists Integumentary Skin Exam: Warm Extremeties Extremities Exam: Pedal Pulses Palpable, Trace Edema Neurologic Neuro Exam: Awake, Speech Clear Psychiatric Psych Exam: Appropriate Responses VTE Prophylaxis VTE Prophylaxis Device: SCDs VTE Prophylaxis Meds: Heparin Assessment/Plan Problem List: (1) Sepsis (2) COPD exacerbation (3) Chronic indwelling Rey catheter (4) UTI (urinary tract infection) (5) Peripheral neuropathy (6) Hypertension (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 UTI, chronic indwelling catheter, poss. PNA 11/14-febrile, inc. sob, tachy -continue abx-Flagyl and Zosyn -follow cultures, UC + citrobacter freundii/pseudomona aeruginosa -had rash after vanco, continue Benadryl PRN. DC'd vanco, added as allergy. UTI, recurrent, UC + citrobacter freundii/pseudomona aeruginosa -continue antibiotics COPD exacerbation, poss. PNA, with exacerbation. -continue oxygen -Duonebs -IV Solumedrol 60 mg q 8 -Pulmonary input appreciated Chronic indwelling cath, neurogenic bladder -continue with rey Thrombocytopenia, poss. sec. sepsis, on Heparin, -improving -CBC in am -hold Heparin -HIT pending -Plat improving, 81,000 Lumbar stenosis, non ambulatory -PT eval and tx Heparin for DVT prophylaxis. Proton pump inhibitor for GI prophylaxis. DNR status Improving slowly Condition guarded D/W RN D/W Dr. Turk D/W pt. This pt. was seen by myself and Dr. Turk, this note is written on his behalf. Problem Qualifiers (1) Sepsis: Qualified Code: A41.9 - Sepsis, due to unspecified organism (2) UTI (urinary tract infection): Qualified Code: T83.511S - Urinary tract infection associated with indwelling urethral catheter, sequela (3) Peripheral neuropathy: Qualified Code: G62.9 - Peripheral polyneuropathy (4) Hypertension: Qualified Code: I10 - Essential hypertension (5) BPH (benign prostatic hyperplasia): Qualified Code: N40.0 - Benign prostatic hyperplasia, presence of lower urinary tract symptoms unspecified, unspecified morphology (6) GERD (gastroesophageal reflux disease): Qualified Code: K21.9 - Gastroesophageal reflux disease without esophagitis (7) Hyperlipidemia: Qualified Code: E78.5 - Hyperlipidemia, unspecified hyperlipidemia type Mar Malloy Nov 15, 2016 13:36
[2016-11-15 14:04] LABS: HEPARIN AB OD 0.055 O.D. (0.000-0.300); HEPARIN INDUCED PLATELET AB NEGATIVE (NEGATIVE)
[2016-11-15] MEDS ORDERED: DILTIAZEM HCL 90 MG TAB PO SCH (18:00)
[2016-11-15] MEDS: DILTIAZEM HCL 90 MG TAB PO SCH ×2 (18:02→22:53)
--- NOTE | 2016-11-15 19:44 | HHI.PR ---
Subjective Remarks YO AA male with COPD,Fever, sob HR high on cardiazem drip UC Gram neg rods Mild sob and wheezing Breathing better today No Fever Objective Vital Signs Vital Signs Date Time Temp Pulse Resp B/P Pulse Ox O2 Delivery O2 Flow Rate FiO2 11/15/16 12:00 98.1 93 20 140/83 95 11/15/16 09:17 Nasal Cannula 3.00 50 11/15/16 08:33 97 Nasal Cannula 3.00 11/15/16 08:07 88 11/15/16 08:00 97.6 102 20 139/79 94 11/15/16 04:02 98.4 94 24 122/72 96 11/15/16 02:30 98.5 100 24 134/77 100 11/14/16 20:30 Nasal Cannula 3.00 11/14/16 20:05 98.5 102 24 127/64 95 11/14/16 19:46 98 Nasal Cannula 3.00 I/O 11/14/16 11/14/16 11/14/16 11/15/16 11/15/16 11/15/16 07:00 15:00 23:00 07:00 15:00 23:00 Intake Total 0 ml 680 ml 0 ml 0 ml Output Total 200 ml 650 ml 150 ml 225 ml Balance -200 ml 30 ml -150 ml -225 ml Intake Oral 0 ml 360 ml 0 ml 0 ml IV Total 320 ml Output Urine Total 200 ml 650 ml 150 ml 225 ml # Bowel Movements 0 0 0 0 Result Diagram: 11/15/1642 11/15/16 0642 Objective Remarks GENERAL: MBMN Male mild sob SKIN: Warm and dry. HEAD: Normocephalic. EYES: No scleral icterus. No injection or drainage. NECK: Supple, trachea midline. No JVD or lymphadenopathy. CARDIOVASCULAR: Regular rate and rhythm without murmurs, gallops, or rubs. RESPIRATORY: Breath sounds equal bilaterally. No accessory muscle use. GASTROINTESTINAL: Abdomen soft, non-tender, nondistended. MUSCULOSKELETAL: No cyanosis, or edema. BACK: Nontender without obvious deformity. No CVA tenderness. A/P Assessment and Plan COPD exac UTI Sepsis Techycardia CVA Indwelling Mazariegos PLAN: IV Solumedrol Aerosol nebs Cont Abx Zosyn Check cultures Cardiazem for HR controll. Wants regular diet Darrick Roberson MD Nov 15, 2016 19:44
[2016-11-15] MEDS: TAMSULOSIN HCL 0.4 MG CAP PO SCH (22:43)
[2016-11-15] MEDS: APIXABAN 5 MG TABLET PO SCH (22:43)
[2016-11-15] MEDS: CIPROFLOXACIN 500 MG TAB PO SCH (22:44)
[2016-11-16] VITALS (9 sets, daily range): BP systolic 117–138; BP diastolic 72–85; PULSE 94–120; RESP 16–22; TEMP 96.8–101.8; O2SAT 92–95
[2016-11-16] MEDS: DILTIAZEM 125 MG/NS 100 ML IV SCH ×2 (05:52)
[2016-11-16] MEDS: methylPREDNISolone SOD SUCC 40 MG/1 ML VIAL IV PUSH SCH ×2 (05:58→21:03)
[2016-11-16] MEDS: CARBIDOPA/LEVODOPA 25 MG/100 MG TAB PO SCH ×3 (05:58→21:04)
[2016-11-16] MEDS: LEVOTHYROXINE SODIUM 150 MCG TAB PO SCH (05:58)
[2016-11-16 06:20] LABS: AUTOMATED NEUTROPHIL # 11.5 TH/MM3 (1.8-7.7); BASOPHIL % 0.3 % (0.0-2.0); HEMATOCRIT 43.1 % (39.0-51.0); HEMO FLAGS DIFF FINAL; LYMPH % 4.6 % (9.0-44.0); LYMPHOCYTE # 0.6 TH/MM3 (1.0-4.8); MEAN CELL VOLUME 81.8 FL (80.0-100.0); MEAN CORPUSCULAR HEMOGLOBIN 26.5 PG (27.0-34.0); MEAN CORPUSCULAR HGB CONC 32.4 % (32.0-36.0); MONO % 2.7 % (0.0-8.0); NEUT % 92.4 % (16.0-70.0); PLATELET COUNT 135 TH/MM3 (150-450); RED BLOOD COUNT 5.27 MIL/MM3 (4.50-5.90); RED CELL DISTRIBUTION WIDTH 16.8 % (11.6-17.2); WHITE BLOOD COUNT 12.4 TH/MM3 (4.0-11.0)
[2016-11-16 06:48] LABS: BICARBONATE 29.6 MEQ/L (21.0-32.0); POTASSIUM 3.5 MEQ/L (3.5-5.1)
[2016-11-16] MEDS: RESP: ALBUTEROL 2.5 MG/IPRATROPIUM 0.5 MG NEB (SCH) INH ×2 (07:43→11:24)
[2016-11-16] MEDS: SODIUM CHLORIDE 0.9% FLUSH 5 ML FLUSH FLUSH SCH ×2 (08:39→21:02)
[2016-11-16] MEDS: FINASTERIDE 5 MG TAB PO SCH (08:40)
[2016-11-16] MEDS: TOLTERODINE TARTRATE 4 MG CAP LA PO SCH (08:40)
[2016-11-16] MEDS: FLUoxetine HCL 20 MG CAP PO SCH (08:40)
[2016-11-16] MEDS: DULoxetine HCl DR 20 MG CAP PO SCH ×2 (08:40→21:03)
[2016-11-16] MEDS: PANTOPRAZOLE SOD 40 MG DELAYED RELEASE TAB PO SCH (08:40)
[2016-11-16] MEDS: APIXABAN 5 MG TABLET PO SCH ×2 (08:40→21:03)
[2016-11-16] MEDS: DILTIAZEM HCL 90 MG TAB PO SCH (08:40)
[2016-11-16] MEDS: FUROSEMIDE 20 MG TAB PO SCH (08:41)
[2016-11-16] MEDS: metroNIDAZOLE 500 MG INJ 100 ML IV SCH ×2 (08:42→15:05)
[2016-11-16] MEDS: BUDESONIDE-FORMOTEROL 160/4.5 MCG INHALER INH SCH ×2 (08:44→21:01)
[2016-11-16] MEDS: prednisoLONE ACETATE 1% OPHT SUSP 5 ML BTL RIGHT EYE SCH (08:44)
[2016-11-16] MEDS: FLUTICASONE 100 MCG/VILANTEROL 25 MCG INHALER INH SCH (08:44)
[2016-11-16] MEDS: CIPROFLOXACIN 500 MG TAB PO SCH ×2 (08:48→21:03)
--- NOTE | 2016-11-16 10:30 | HHI.PR ---
Subjective History of Present Illness I am Ok remained on cardizem drip HR 100s breathing is ok no cp occ cough , no sputum tolerating regular diet No N/v No abd pain c/o constipation offers no other c/o Vitals/Results Intake & Output 11/15/16 11/15/16 11/16/16 14:59 22:59 06:59 Intake Total 0 ml 120 ml Output Total 200 ml 450 ml Balance -200 ml -330 ml Intake Oral 0 ml 120 ml Output Urine Total 200 ml 450 ml # Bowel Movements 0 0 Vital Signs Vital Signs Date Time Temp Pulse Resp B/P Pulse Ox O2 Delivery O2 Flow Rate FiO2 11/16/16 07:43 93 Nasal Cannula 3.00 11/16/16 07:43 95 Nasal Cannula 3.00 11/16/16 04:00 99.2 110 20 130/72 93 11/16/16 00:20 98.5 106 20 138/85 93 11/15/16 22:45 Nasal Cannula 3.00 11/15/16 21:50 99.3 104 22 118/76 95 11/15/16 21:37 102 11/15/16 19:58 95 Nasal Cannula 3.00 11/15/16 19:56 95 Nasal Cannula 3.00 11/15/16 16:00 97.9 101 20 124/82 96 11/15/16 12:00 98.1 93 20 140/83 95 CBC/BMP: 11/16/16 0516 11/16/16 0516 Lab Results Laboratory Tests Test 11/16/16 05:16 White Blood Count 12.4 TH/MM3 Red Blood Count 5.27 MIL/MM3 Hemoglobin 13.9 GM/DL Hematocrit 43.1 % Mean Corpuscular Volume 81.8 FL Mean Corpuscular Hemoglobin 26.5 PG Mean Corpuscular Hemoglobin 32.4 % Concent Red Cell Distribution Width 16.8 % Platelet Count 135 TH/MM3 Mean Platelet Volume 8.9 FL Neutrophils (%) (Auto) 92.4 % Lymphocytes (%) (Auto) 4.6 % Monocytes (%) (Auto) 2.7 % Eosinophils (%) (Auto) 0.0 % Basophils (%) (Auto) 0.3 % Neutrophils # (Auto) 11.5 TH/MM3 Lymphocytes # (Auto) 0.6 TH/MM3 Monocytes # (Auto) 0.3 TH/MM3 Eosinophils # (Auto) 0.0 TH/MM3 Basophils # (Auto) 0.0 TH/MM3 CBC Comment DIFF FINAL Differential Comment Sodium Level 140 MEQ/L Potassium Level 3.5 MEQ/L Chloride Level 100 MEQ/L Carbon Dioxide Level 29.6 MEQ/L Anion Gap 10 MEQ/L Blood Urea Nitrogen 27 MG/DL Creatinine 1.11 MG/DL Estimat Glomerular Filtration 79 ML/MIN Rate Random Glucose 163 MG/DL Calcium Level 8.8 MG/DL Physical Exam General General Appearance: Well Developed, No Acute Distress, Comfortable, Anxious Eyes Eye Exam: Pupils Equal, Sclera White Ears & Nose Ears & Nose Exam: Nasal Mucosa [place] Throat Throat Exam: Oral Mucosa [place] & Moist Neck Neck Exam: Neck Supple, Trachea Midline Pulmonary Resp Exam: Clear Bilaterally, Breath Sounds Equal, No Distress Cardiology CV Exam: Irregular, Tachycardia Gastrointestinal/Abdomen GI Exam: Soft, Non-Tender, Bowel Sounds Present, Non-Distended Musculoskeletal MS Exam: Atrophy, Unable to Ambulate Integumentary Skin Exam: Clear, Warm Extremeties Extremities Exam: Pedal Pulses Palpable, Trace Edema Neurologic Neuro Exam: Alert, Awake, Speech Clear Neuro Remarks 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 UTI, chronic indwelling catheter, poss. PNA 11/14-febrile, inc. sob, tachy Urine c/s +ve citrobacter freundii/pseudomona aeruginosa sensitive On PO cipro bid -had rash after vanco, continue Benadryl PRN. Off , added as allergy. UTI, recurrent, UC + citrobacter freundii/pseudomona aeruginosa -continue antibiotics COPD exacerbation, poss. PNA, with exacerbation. -continue oxygen -Duonebs -taper IV Solumedrol 40 mg q 12 -Pulmonary input appreciated Atrial Fibrillation On IV Cardizem 5mg/hr change PO cardizem CD 360 mg qd , d/c IV cardizem cont Eliquis Chronic indwelling cath, neurogenic bladder -continue with valles Thrombocytopenia, -improving ? med related -Off Heparin -HIT negative -Plat improving, Lumbar stenosis, non ambulatory -PT eval and tx Heparin for DVT prophylaxis. Proton pump inhibitor for GI prophylaxis. DNR status Improving slowly Condition guarded ss for d/c planning /possible d/c to NH in am , if remained stable D/W RN D/W pt. will f/u Problem Qualifiers (1) Sepsis: Qualified Code: A41.9 - Sepsis, due to unspecified organism (2) UTI (urinary tract infection): Qualified Code: T83.511S - Urinary tract infection associated with indwelling urethral catheter, sequela (3) Peripheral neuropathy: Qualified Code: G62.9 - Peripheral polyneuropathy (4) Hypertension: Qualified Code: I10 - Essential hypertension (5) BPH (benign prostatic hyperplasia): Qualified Code: N40.0 - Benign prostatic hyperplasia, presence of lower urinary tract symptoms unspecified, unspecified morphology (6) GERD (gastroesophageal reflux disease): Qualified Code: K21.9 - Gastroesophageal reflux disease without esophagitis (7) Hyperlipidemia: Qualified Code: E78.5 - Hyperlipidemia, unspecified hyperlipidemia type Mitchell Turk MD Nov 16, 2016 10:30
[2016-11-16] MEDS: DILTIAZEM-CD 180 MG CAP ER PO SCH (11:41)
[2016-11-16] MEDS: ALPRAZolam 0.25 MG TAB PO PRN (11:47)
[2016-11-16] MEDS: ACETAMINOPHEN 325 MG TAB PO PRN (11:48)
[2016-11-16] MEDS: SODIUM CHLOR 0.9% 1000 ML INJ 1,000 ML IV SCH ×2 (12:02→21:02)
--- NOTE | 2016-11-16 14:11 | RADRPT ---
EXAM DATE/TIME: 11/16/2016 13:46 [facility] COMPARISON: CHEST SINGLE AP, November 13, 2016, 15:12. INDICATIONS : Cough, short of breath MEDICAL HISTORY : Cerebrovascular disease. Cardiovascular disease. Chronic obstructive pulmonary disease. hypertens ion, stroke SURGICAL HISTORY : Appendectomy. Cholecystectomy. ENCOUNTER: Subsequent ACUITY: 4 - 6 days PAIN SCORE: Non-responsive. LOCATION: Bilateral chest FINDINGS: A single view of the chest demonstrates persistent hypoinflation but improving atelectatic changes in both lung bases. Heart size is difficult to time and due to the low lung volumes. Patient remains ro tated rightward with distortion of the mediastinal structures. Osseous structures are intact. CONCLUSION: Persistent hypoinflation with improving bibasilar atelectatic changes. Joni Young MD on November 16, 2016 at 14:09 Board Certified Radiologist. This report was verified electronically.
[2016-11-16] MEDS: ACETAMINOPHEN/HYDROcodone 325 MG/5 MG TAB PO PRN (15:25)
--- NOTE | 2016-11-16 15:25 | PD.CONS ---
History of Present Illness Service Infectious disease Consult Requested By Dr Airam Turk Reason for Consult Evaluate patient with recurrent fever Primary Care Physician Jhonny Fatima M.D. Diagnoses: History of Present Illness Patient seen and examined. Records reviewed. Patient is a 71-year-old male presented to the hospital complaining of some chest pain. There was also some shortness of breath. There was no mention of any abdominal pain nausea or vomiting. He was noted to have some wheezing, and was admitted for possible pneumonia. His urinalysis did show also evidence of UTI. Patient has neurogenic bladder, and has an indwelling Valles catheter in place. Febrile when he came in. His WBC count is normal. Patient was put on vancomycin and Zosyn, apparently developed a rash which was felt to be due to the vancomycin and this was discontinued. His temperatures improved, and he stabilized, however 2 days ago he had another fever. Today so far his temperatures have been normal. Patient from previous notes has been talking and answering questions. Currently patient is awake but not really answering my questions. He seemed to be having some tremulousness in his upper extremities. He is currently afebrile. His blood cultures have been negative. His urine culture has 2 gram-negative melissa. Chest x-ray showing hypoinflation , and improving atelectasis bilaterally. Infectious disease consultation requested to evaluate patient for his recurrent fevers. Review of Systems ROS Limitations: Clinical Condition, Altered Mental Status Constitutional: COMPLAINS OF: Fever, Chills Other Currently unable to get a good review of systems since the patient is nonverbal and not consistently responding to my questioning. Past Family Social History Allergies: Coded Allergies: MRI PRECAUTION (Verified Allergy, Severe, PT HAS INTERNAL STIMULATOR (ME) , 11/12/16) Vancomycin (Verified Allergy, Mild, Rash, 11/13/16) developed hives, pruritus *MDRO Multi-Drug Resistant Organism (Verified Adverse Reaction, Unknown, ) MRSA PCR Screen positive 09/29/15. Past Medical History COPD / bronchial asthma. History of atrial fibrillation CVA with weakness. Hypothyroidism. BPH. Peripheral arterial disease Parkinson's disease. Neurogenic bladder with chronic indwelling Valles catheter Chronic back pain post back pain stimulator Arthritis. Past Surgical History History of appendectomy. Cholecystectomy. Bilateral foot surgery. Multiple tooth extractions Active Ordered Medications Tylenol [place] Albuterol Xanax Eliquis Symbicort Sinemet Cipro Cardizem Benadryl Cymbalta Fentanyl Proscar Prozac Lasix Synthroid Flagyl Solu-Medrol SL NTG Zofran Protonix Flomax Detr Social History Resides in the senior care His and ex-smoker and X alcohol use, quit in the s No illicit drug use Physical Exam Vital Signs Vital Signs Date Time Temp Pulse Resp B/P Pulse Ox O2 Delivery O2 Flow Rate FiO2 11/16/16 08:00 Nasal Cannula 3.00 11/16/16 08:00 107 11/16/16 07:43 93 Nasal Cannula 3.00 11/16/16 07:43 95 Nasal Cannula 3.00 11/16/16 04:00 99.2 110 20 130/72 93 11/16/16 00:20 98.5 106 20 138/85 93 11/15/16 22:45 Nasal Cannula 3.00 11/15/16 21:50 99.3 104 22 118/76 95 11/15/16 21:37 102 11/15/16 19:58 95 Nasal Cannula 3.00 11/15/16 19:56 95 Nasal Cannula 3.00 11/15/16 16:00 97.9 101 20 124/82 96 Physical Exam GENERAL: This is a well-nourished, well-developed male, he is awake, he is focusing and occasionally would nod or shake his head to answer my questions, currently nonverbal. He has tremulousness in his upper extremities, and has tea and contractures bilaterally, worse in the right upper extremity compared to the left upper extremity. SKIN: Warm and dry, no rash noted, no embolic lesions. HEAD: Atraumatic. Normocephalic. No temporal or scalp tenderness. EYES: [place] conjunctivae, no petechia or hemorrhage. Pupils equal round and reactive. Extraocular motions intact. No scleral icterus. No injection or drainage. ENT: Nose without bleeding, or purulent drainage. Has white coating on his tongue. Unable to examine his posterior pharynx. . NECK: Trachea midline. No JVD or lymphadenopathy. Neck seems to be rigid, but no tenderness. CARDIOVASCULAR: Regular rate and rhythm without murmurs, gallops, or rubs. RESPIRATORY: Clear to auscultation. Breath sounds equal bilaterally. No wheezes , rales, or rhonchi. Decreased breath sounds at the bases. GASTROINTESTINAL: Abdomen not distended, seems to have diffuse abdominal tenderness. He is not relaxing his abdominal wall, and very difficult to examine for presence of organomegaly. Bowel sounds are hypoactive. He has some ecchymosis on his abdominal wall from subcutaneous injections. MUSCULOSKELETAL: Extremities without clubbing, cyanosis, or edema. No joint tenderness, effusion, or edema noted. No calf tenderness. Has scars in both feet from previous surgery NEUROLOGICAL: Awake, and focusing. Has spasticity of both UE. No babinski or clonus. NO facial symmetry, tongue in midline. PSYCH: Restless LINE: PIV with no evidence of infection : Valles in place, urine looks clear Laboratory Laboratory Tests Test 11/16/16 05:16 White Blood Count 12.4 Red Blood Count 5.27 Hemoglobin 13.9 Hematocrit 43.1 Mean Corpuscular Volume 81.8 Mean Corpuscular Hemoglobin 26.5 Mean Corpuscular Hemoglobin 32.4 Concent Red Cell Distribution Width 16.8 Platelet Count 135 Mean Platelet Volume 8.9 Neutrophils (%) (Auto) 92.4 Lymphocytes (%) (Auto) 4.6 Monocytes (%) (Auto) 2.7 Eosinophils (%) (Auto) 0.0 Basophils (%) (Auto) 0.3 Neutrophils # (Auto) 11.5 Lymphocytes # (Auto) 0.6 Monocytes # (Auto) 0.3 Eosinophils # (Auto) 0.0 Basophils # (Auto) 0.0 CBC Comment DIFF FINAL Differential Comment Sodium Level 140 Potassium Level 3.5 Chloride Level 100 Carbon Dioxide Level 29.6 Anion Gap 10 Blood Urea Nitrogen 27 Creatinine 1.11 Estimat Glomerular Filtration 79 Rate Random Glucose 163 Calcium Level 8.8 Date/Time Procedure Status Source Growth 11/12/16 11:56 Influenza Types A,B Antigen (TOSIN) - Final Complete Nasal Aspirate NEGATIVE FOR FLU A AND B ANTIGEN.... 11/12/16 10:40 Aerobic Blood Culture - Preliminary Resulted Blood Peripheral NO GROWTH IN 4 DAYS 11/12/16 10:40 Anaerobic Blood Culture - Preliminary Resulted Blood Peripheral NO GROWTH IN 4 DAYS 11/12/16 10:20 Urine Culture - Final Complete Urine Clean Catch Citrobacter Freundii Complex Pseudomonas Aeruginosa Result Diagram: 11/16/16 0516 11/16/16 0516 Imaging RADIOLOGY STUDIES/FILMS REVIEWED Last Impressions Chest X-Ray 11/16/16 0000 Signed Impressions: Service Date/Time: October 13:46 - CONCLUSION: Persistent hypoinflation with improving bibasilar atelectatic changes. Joni Young MD Chest CT 11/12/16 0000 Signed Impressions: Service Date/Time: Saturday, November 12, 2016 16:38 - CONCLUSION: Mild emphysematous changes. I do not see any consolidative changes. David Gates MD FACR Assessment and Plan Assessment and Plan IMPRESSION Recurrent fever, etiology? possibly with new sepsis UTI, has valles in place Hx CVA, neurogenic bladder Encephalopathy, due to sepsis RECOMMENDATION Continue Flagyl Continue Cipro Add Cefepime Change valles cath US of kidneys Repeat 2 BC UA and C/S LFT KUB May need CT A/P Follow new C/S Monitor progress Follow C/S I will determine course of Abx once work-up is completed I will follow along with you Thank you for this consultation Discussed Condition With D/W Maricel Mora MD Nov 16, 2016 15:25
--- NOTE | 2016-11-16 16:48 | HHI.PR ---
Subjective Remarks YO AA male with COPD,Fever, sob HR high on cardiazem drip Mild sob and wheezing Breathing better today UC Citrobactor and pseudomonas Objective Vital Signs Vital Signs Date Time Temp Pulse Resp B/P Pulse Ox O2 Delivery O2 Flow Rate FiO2 11/16/16 12:00 101.8 120 22 127/80 92 11/16/16 08:00 Nasal Cannula 3.00 11/16/16 08:00 97.5 107 20 117/80 94 11/16/16 08:00 107 11/16/16 07:43 93 Nasal Cannula 3.00 11/16/16 07:43 95 Nasal Cannula 3.00 11/16/16 04:00 99.2 110 20 130/72 93 11/16/16 00:20 98.5 106 20 138/85 93 11/15/16 22:45 Nasal Cannula 3.00 11/15/16 21:50 99.3 104 22 118/76 95 11/15/16 21:37 102 11/15/16 19:58 95 Nasal Cannula 3.00 11/15/16 19:56 95 Nasal Cannula 3.00 I/O 11/15/16 11/15/16 11/15/16 11/16/16 11/16/16 11/16/16 07:00 15:00 23:00 07:00 15:00 23:00 Intake Total 0 ml 0 ml 120 ml Output Total 225 ml 200 ml 450 ml Balance -225 ml -200 ml -330 ml Intake Oral 0 ml 0 ml 120 ml Output Urine Total 225 ml 200 ml 450 ml # Bowel Movements 0 0 0 Result Diagram: 11/16/1616 11/16/16 0516 Objective Remarks GENERAL: MBMN Male mild sob SKIN: Warm and dry. HEAD: Normocephalic. EYES: No scleral icterus. No injection or drainage. NECK: Supple, trachea midline. No JVD or lymphadenopathy. CARDIOVASCULAR: Regular rate and rhythm without murmurs, gallops, or rubs. RESPIRATORY: Breath sounds equal bilaterally. No accessory muscle use. GASTROINTESTINAL: Abdomen soft, non-tender, nondistended. MUSCULOSKELETAL: No cyanosis, or edema. BACK: Nontender without obvious deformity. No CVA tenderness. A/P Assessment and Plan COPD exac UTI Sepsis Techycardia CVA Indwelling Mazariegos PLAN: IV Solumedrol Aerosol nebs Cardiazem for HR controll. Wants regular diet Abx Cefepime,Cipro and Flagyl per ID Darrick Roberson MD Nov 16, 2016 16:48
[2016-11-16 18:06] LABS: BACTERIA, URINE RARE /hpf; BLOOD, URINE MOD (NEG); COMMENT (UR) CATH-CULTURE IND; CULTURE IF INDICATED CATH CULTURE IND; GLUCOSE,URINE NEG (NEG); HYALINE CAST, URINE 4 /lpf (RARE); KETONE, URINE NEG (NEG); NITRITE,URINE NEG (NEG); PH, URINE 5.5 (5.0-8.5); URINE COLOR YELLOW (YELLW/STRAW)
--- NOTE | 2016-11-16 18:18 | RADRPT ---
EXAM DATE/TIME: 11/16/2016 17:27 [facility] COMPARISON: CT ABDOMEN & PELVIS W/O CONTRAST, August 16, 2016, 5:39. INDICATIONS : Abdominal pain. MEDICAL HISTORY : None. SURGICAL HISTORY : Spinal stimulator. ENCOUNTER: Initial ACUITY: 1 week PAIN SCORE: Non-responsive. LOCATION: Bilateral abdomen. FINDINGS: There is a large amount of stool throughout the colon. The colon is distended, especially the cecum w hich measures up to 13.3 cm. There is no small bowel distention. No free air seen. CONCLUSION: Colonic distention with a large amount of stool and air. Ileus/nonmechanical obstruction thought most likely. Arnoldo Coombs MD on November 16, 2016 at 18:15 Board Certified Radiologist. This report was verified electronically.
[2016-11-16] MEDS: CEFEPIME INJ 2,000 MG in SODIUM CHLORIDE 0.9% INJ 100 ML IV SCH (18:33)
--- NOTE | 2016-11-16 18:37 | RADRPT ---
EXAM DATE/TIME: 11/16/2016 16:50 [facility] COMPARISON: US KIDNEY/RENAL/BLADDER, October 02, 2015, 11:59. INDICATIONS : Urinary tract infection. MEDICAL HISTORY : Hypothyroidism. Parkinson's. Hypercholesterolemia. Neurogenic bladder. CVA. Afib. COPD. Ashtma. Pneum onia. Dyspnea. Enlarged prostate. Arthritis. Anemia. Thrombocytopenia. MRSA. SURGICAL HISTORY : Cholecystectomy. Appendectomy. Bunionectomy. Rods placed in back/spinal cord stimulater. ENCOUNTER: Subsequent ACUITY: 1 day PAIN SCORE: Nonresponsive. LOCATION: Bilateral flank MEASUREMENTS: RIGHT KIDNEY: Nonvisualized LEFT KIDNEY: 10.1 x 3.8 x 4.1 cm FINDINGS: RIGHT KIDNEY: Limited study with nonvisualization of the right kidney. LEFT KIDNEY: Renal cortex is normal in thickness and echotexture. No hydronephrosis, stone, or mass. BLADDER: Decompressed with a Mazariegos catheter and grossly unremarkable. CONCLUSION: Study is limited. The right kidney is not seen clearly. The left kidney is without an acute abnormali ty. Mazariegos in the bladder. Arnoldo Coombs MD on November 16, 2016 at 18:34 Board Certified Radiologist. This report was verified electronically.
[2016-11-16 20:10] LABS: INDIRECT BILIRUBIN 0.5 MG/DL (0.0-0.8); TOTAL BILIRUBIN ADULT 1.2 MG/DL (0.2-1.0)
[2016-11-16] MEDS: TAMSULOSIN HCL 0.4 MG CAP PO SCH (21:03)
[2016-11-17] VITALS (9 sets, daily range): BP systolic 108–139; BP diastolic 68–78; PULSE 84–119; RESP 16–20; TEMP 96.5–102; O2SAT 90–98
[2016-11-17] MEDS: SODIUM CHLOR 0.9% 1000 ML INJ 1,000 ML IV SCH ×2 (01:26→12:18)
[2016-11-17] MEDS: metroNIDAZOLE 500 MG INJ 100 ML IV SCH ×3 (01:26→15:20)
[2016-11-17] MEDS: LEVOTHYROXINE SODIUM 150 MCG TAB PO SCH (06:25)
[2016-11-17] MEDS: CARBIDOPA/LEVODOPA 25 MG/100 MG TAB PO SCH ×3 (06:25→22:26)
[2016-11-17] MEDS: CEFEPIME INJ 2,000 MG in SODIUM CHLORIDE 0.9% INJ 100 ML IV SCH ×2 (06:25→16:49)
[2016-11-17] MEDS: DILTIAZEM-CD 180 MG CAP ER PO SCH ×2 (08:15→09:00)
[2016-11-17] MEDS: CIPROFLOXACIN 500 MG TAB PO SCH ×2 (08:15→22:25)
[2016-11-17] MEDS: FUROSEMIDE 20 MG TAB PO SCH (08:15)
[2016-11-17] MEDS: methylPREDNISolone SOD SUCC 40 MG/1 ML VIAL IV PUSH SCH ×2 (08:15→22:25)
[2016-11-17] MEDS: TOLTERODINE TARTRATE 4 MG CAP LA PO SCH (08:15)
[2016-11-17] MEDS: PANTOPRAZOLE SOD 40 MG DELAYED RELEASE TAB PO SCH (08:15)
[2016-11-17] MEDS: FINASTERIDE 5 MG TAB PO SCH ×2 (08:15→09:00)
[2016-11-17] MEDS: FLUoxetine HCL 20 MG CAP PO SCH (08:15)
[2016-11-17] MEDS: DULoxetine HCl DR 20 MG CAP PO SCH ×3 (08:15→22:26)
[2016-11-17] MEDS: APIXABAN 5 MG TABLET PO SCH ×2 (08:15→22:26)
[2016-11-17] MEDS: prednisoLONE ACETATE 1% OPHT SUSP 5 ML BTL RIGHT EYE SCH (08:16)
[2016-11-17] MEDS: BUDESONIDE-FORMOTEROL 160/4.5 MCG INHALER INH SCH ×2 (08:16→21:00)
[2016-11-17] MEDS: FLUTICASONE 100 MCG/VILANTEROL 25 MCG INHALER INH SCH (08:16)
[2016-11-17] MEDS: SODIUM CHLORIDE 0.9% FLUSH 5 ML FLUSH FLUSH SCH ×2 (08:16→20:42)
[2016-11-17] MEDS: ACETAMINOPHEN 325 MG TAB PO PRN ×2 (08:20→18:10)
--- NOTE | 2016-11-17 12:33 | HHI.IDPN ---
Subjective Subjective Remarks Notes reviewed Temps ok No BM Valles cath changed 11/16 Renal US - L kidney ok, R kidney not visualized KUB - full of stool and cecum 13.3 cm Mental status same - awake, not following and not verbal D/W RN Antibiotics Cefepime Cipro Flagyl Lines PIV Past Medical History COPD / bronchial asthma. History of atrial fibrillation CVA with weakness. Hypothyroidism. BPH. Peripheral arterial disease Parkinson's disease. Neurogenic bladder with chronic indwelling Valles catheter Chronic back pain post back pain stimulator Arthritis. Past Surgical History History of appendectomy. Cholecystectomy. Bilateral foot surgery. Multiple tooth extractions Allergies: Coded Allergies: MRI PRECAUTION (Verified Allergy, Severe, PT HAS INTERNAL STIMULATOR (ME) , 11/12/16) Vancomycin (Verified Allergy, Mild, Rash, 11/13/16) developed hives, pruritus *MDRO Multi-Drug Resistant Organism (Verified Adverse Reaction, Unknown, ) MRSA PCR Screen positive 09/29/15. Objective . Vital Signs Date Time Temp Pulse Resp B/P Pulse Ox O2 Delivery O2 Flow Rate FiO2 11/17/16 09:34 96 Nasal Cannula 3.00 11/17/16 09:34 96 Nasal Cannula 3.00 11/17/16 08:23 105 11/17/16 08:23 Nasal Cannula 3.00 11/17/16 02:00 96.5 84 16 113/75 98 11/17/16 00:18 97.4 100 16 108/68 96 11/17/16 00:04 98 11/16/16 21:18 96.8 104 16 123/82 92 11/16/16 21:09 Nasal Cannula 3.00 11/16/16 19:51 94 Nasal Cannula 3.00 11/16/16 19:47 94 11/16/16 16:00 98.6 107 18 121/73 93 11/16/16 11/16/16 11/17/16 15:00 23:00 07:00 Intake Total 240 ml 0 ml 0 ml Output Total 400 ml 225 ml 350 ml Balance -160 ml -225 ml -350 ml Intake Oral 240 ml 0 ml 0 ml Output Urine Total 400 ml 225 ml 350 ml # Bowel Movements 0 0 0 . Laboratory Tests Test 11/16/16 05:16 White Blood Count 12.4 TH/MM3 Red Blood Count 5.27 MIL/MM3 Hemoglobin 13.9 GM/DL Hematocrit 43.1 % Mean Corpuscular Volume 81.8 FL Mean Corpuscular Hemoglobin 26.5 PG Mean Corpuscular Hemoglobin 32.4 % Concent Red Cell Distribution Width 16.8 % Platelet Count 135 TH/MM3 Mean Platelet Volume 8.9 FL Neutrophils (%) (Auto) 92.4 % Lymphocytes (%) (Auto) 4.6 % Monocytes (%) (Auto) 2.7 % Eosinophils (%) (Auto) 0.0 % Basophils (%) (Auto) 0.3 % Neutrophils # (Auto) 11.5 TH/MM3 Lymphocytes # (Auto) 0.6 TH/MM3 Monocytes # (Auto) 0.3 TH/MM3 Eosinophils # (Auto) 0.0 TH/MM3 Basophils # (Auto) 0.0 TH/MM3 CBC Comment DIFF FINAL Differential Comment Laboratory Tests Test 11/16/16 11/16/16 05:16 15:17 Sodium Level 140 MEQ/L Potassium Level 3.5 MEQ/L Chloride Level 100 MEQ/L Carbon Dioxide Level 29.6 MEQ/L Anion Gap 10 MEQ/L Blood Urea Nitrogen 27 MG/DL Creatinine 1.11 MG/DL Estimat Glomerular Filtration 79 ML/MIN Rate Random Glucose 163 MG/DL Calcium Level 8.8 MG/DL Total Bilirubin 1.2 MG/DL Direct Bilirubin 0.7 MG/DL Indirect Bilirubin 0.5 MG/DL Aspartate Amino Transf 104 U/L (AST/SGOT) Alanine Aminotransferase 127 U/L (ALT/SGPT) Alkaline Phosphatase 66 U/L Total Protein 7.7 GM/DL Albumin 3.6 GM/DL Lactic Acid Level 1.1 mmol/L Microbiology Date/Time Procedure Status Source Growth 11/16/16 15:06 Aerobic Blood Culture - Preliminary Resulted Blood Peripheral NO GROWTH IN 1 DAY 11/16/16 15:06 Anaerobic Blood Culture - Final Resulted Blood Peripheral QNS - SEE AEROBE REPORT 11/16/16 15:17 Aerobic Blood Culture - Preliminary Resulted Blood Peripheral NO GROWTH IN 1 DAY 11/16/16 15:17 Anaerobic Blood Culture - Preliminary Resulted Blood Peripheral NO GROWTH IN 1 DAY 11/16/16 16:20 Urine Culture Received Urine Catheterized Urine Pending Imaging Renal Ultrasound 11/16/16 0000 Signed Impressions: Service Date/Time: October 16:50 - CONCLUSION: Study is limited. The right kidney is not seen clearly. The left kidney is without an acute abnormality. Valles in the bladder. Arnoldo Coombs MD Chest X-Ray 11/16/16 0000 Signed Impressions: Service Date/Time: October 13:46 - CONCLUSION: Persistent hypoinflation with improving bibasilar atelectatic changes. Joni Young MD Abdomen X-Ray 11/16/16 0000 Signed Impressions: Service Date/Time: October 17:27 - CONCLUSION: Colonic distention with a large amount of stool and air. Ileus/nonmechanical obstruction thought most likely. Arnoldo Coombs MD Chest CT 11/12/16 0000 Signed Impressions: Service Date/Time: Saturday, November 12, 2016 16:38 - CONCLUSION: Mild emphysematous changes. I do not see any consolidative changes. David Gates MD FACR Physical Exam GENERAL: he is awake, he is focusing and occasionally would nod or shake his head to answer my questions, nonverbal. He has tremulousness in his upper extremities, and has spasticity and contractures bilaterally, worse in the right upper extremity compared to the left upper extremity. SKIN: Warm and dry, no rash noted, no embolic lesions. HEENT: [place] conjunctivae, no petechia or hemorrhage. No scleral icterus. Has white coating on his tongue. NECK: Trachea midline. No JVD or lymphadenopathy. Neck rigid, but no tenderness. CARDIOVASCULAR: Regular rate and rhythm without murmurs, gallops, or rubs. RESPIRATORY: Clear to auscultation. Breath sounds equal bilaterally. No wheezes , rales, or rhonchi. Decreased breath sounds at the bases. GASTROINTESTINAL: Abdomen not distended, seems to have diffuse abdominal tenderness. He is not relaxing his abdominal wall, and very difficult to examine for presence of organomegaly. Bowel sounds are hypoactive. He has some ecchymosis on his abdominal wall from subcutaneous injections. MUSCULOSKELETAL: Extremities without clubbing, cyanosis, or edema. No joint tenderness, effusion, or edema noted. No calf tenderness. Has scars in both feet from previous surgery NEUROLOGICAL: Awake, and focusing. Has spasticity of both UE. NO facial symmetry, tongue in midline. PSYCH: Restless LINE: PIV with no evidence of infection : Valles in place, urine looks clear Assessment & Plan Remarks IMPRESSION Recurrent fever, etiology? possibly with new sepsis - temps better UTI, has valles in place Hx CVA, neurogenic bladder Encephalopathy, due to sepsis KUB full of stool, and ceccum dilated RECOMMENDATION Continue Flagyl Continue Cipro Continue Cefepime Follow C/S GI evaluation - ?decompressive colonoscopy Monitor progress D/W RN Dr Jessica Stiles available if needed this I will check patient again Sunday Maricel Klein MD Nov 17, 2016 12:33
--- NOTE | 2016-11-17 15:44 | HHI.PR ---
Subjective History of Present Illness I am Ok remained on cardizem drip HR 100s refusing to take pills by mouth/por po intake AXR constipation/fecal impaction breathing is ok no cp offers no other c/o Vitals/Results Intake & Output 11/16/16 11/16/16 11/17/16 15:00 23:00 07:00 Intake Total 240 ml 0 ml 0 ml Output Total 400 ml 225 ml 350 ml Balance -160 ml -225 ml -350 ml Intake Oral 240 ml 0 ml 0 ml Output Urine Total 400 ml 225 ml 350 ml # Bowel Movements 0 0 0 Vital Signs Vital Signs Date Time Temp Pulse Resp B/P Pulse Ox O2 Delivery O2 Flow Rate FiO2 11/17/16 09:34 96 Nasal Cannula 3.00 11/17/16 09:34 96 Nasal Cannula 3.00 11/17/16 08:23 105 11/17/16 08:23 Nasal Cannula 3.00 11/17/16 02:00 96.5 84 16 113/75 98 11/17/16 00:18 97.4 100 16 108/68 96 11/17/16 00:04 98 11/16/16 21:18 96.8 104 16 123/82 92 11/16/16 21:09 Nasal Cannula 3.00 11/16/16 19:51 94 Nasal Cannula 3.00 11/16/16 19:47 94 11/16/16 16:00 98.6 107 18 121/73 93 CBC/BMP: 11/16/16 0516 11/16/16 0516 Lab Results Laboratory Tests Test 11/16/16 16:20 Urine Color YELLOW Urine Turbidity CLEAR Urine pH 5.5 Urine Specific [place] 1.018 Urine Protein 30 mg/dL Urine Glucose (UA) NEG mg/dL Urine Ketones NEG mg/dL Urine Occult Blood MOD Urine Nitrite NEG Urine Bilirubin NEG Urine Urobilinogen LESS THAN 2.0 MG/DL Urine Leukocyte Esterase SMALL Urine RBC 4 /hpf Urine WBC 11 /hpf Urine Bacteria RARE /hpf Urine Hyaline Casts 4 /lpf Microscopic Urinalysis Comment CATH-CULTURE IND Microbiology Microbiology 11/16/16 Urine Culture - Preliminary, Resulted NO GROWTH IN 24 HOURS. Physical Exam General General Appearance: No Acute Distress, Comfortable, Anxious Eyes Eye Exam: Pupils Equal, Sclera White Ears & Nose Ears & Nose Exam: Nasal Mucosa [place] Throat Throat Exam: Oral Mucosa [place] & Moist Neck Neck Exam: Neck Supple, Trachea Midline Pulmonary Resp Exam: Clear Bilaterally, Breath Sounds Equal, No Distress Cardiology CV Exam: Irregular, Tachycardia Gastrointestinal/Abdomen GI Exam: Soft, Non-Tender, Bowel Sounds Present, Non-Distended GI Remarks slightly distended No rigidity or rebound tenderness Integumentary Skin Exam: Clear, Warm Extremeties Extremities Exam: Pedal Pulses Palpable, Trace Edema Neurologic Neuro Remarks lethargic but arousable 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 UTI, chronic indwelling catheter, poss. PNA 11/14-febrile, inc. sob, tachy Urine c/s +ve citrobacter freundii/pseudomona aeruginosa sensitive On PO cipro bid -had rash after vanco, continue Benadryl PRN. Off , added as allergy. UTI, recurrent, UC + citrobacter freundii/pseudomona aeruginosa -continue antibiotics COPD exacerbation, poss. PNA, with exacerbation. -continue oxygen -Duonebs -taper IV Solumedrol 40 mg q 12 -Pulmonary input appreciated Atrial Fibrillation On IV Cardizem 5mg/hr change PO cardizem CD 360 mg qd , d/c IV cardizem cont Eliquis Chronic indwelling cath, neurogenic bladder -continue with valles Thrombocytopenia, -improving ? med related -Off Heparin -HIT negative -Plat improving, Lumbar stenosis, non ambulatory -PT eval and tx Heparin for DVT prophylaxis. Proton pump inhibitor for GI prophylaxis. DNR status Improving slowly Condition guarded ss for d/c planning /possible d/c to NH in am , if remained stable D/W RN D/W pt. will f/u Problem Qualifiers (1) Sepsis: Qualified Code: A41.9 - Sepsis, due to unspecified organism (2) UTI (urinary tract infection): Qualified Code: T83.511S - Urinary tract infection associated with indwelling urethral catheter, sequela (3) Peripheral neuropathy: Qualified Code: G62.9 - Peripheral polyneuropathy (4) Hypertension: Qualified Code: I10 - Essential hypertension (5) BPH (benign prostatic hyperplasia): Qualified Code: N40.0 - Benign prostatic hyperplasia, presence of lower urinary tract symptoms unspecified, unspecified morphology (6) GERD (gastroesophageal reflux disease): Qualified Code: K21.9 - Gastroesophageal reflux disease without esophagitis (7) Hyperlipidemia: Qualified Code: E78.5 - Hyperlipidemia, unspecified hyperlipidemia type Mitchell Turk MD Nov 17, 2016 15:44 (7) Hyperlipidemia: Qualified Code: E78.5 - Hyperlipidemia, unspecified hyperlipidemia type Mitchell Turk MD Nov 17, 2016 15:44
[2016-11-17] MEDS ORDERED: SOD PHOSPHATE/SOD BIPHOSPHATE (ADULT) ENEMA 133ML PR ONE (16:30)
[2016-11-17] MEDS ORDERED: SOD PHOSPHATE/SOD BIPHOSPHATE (ADULT) ENEMA 133ML PR PRN (17:30)
--- NOTE | 2016-11-17 17:59 | HHI.PR ---
Subjective Remarks YO AA male with COPD,Fever, sob HR high on cardiazem drip Mild sob and wheezing Breathing better today UC Citrobactor and pseudomonas Still febrile had enema Objective Vital Signs Vital Signs Date Time Temp Pulse Resp B/P Pulse Ox O2 Delivery O2 Flow Rate FiO2 11/17/16 16:00 102.0 112 20 133/73 95 11/17/16 12:00 101.3 119 20 139/78 96 11/17/16 09:34 96 Nasal Cannula 3.00 11/17/16 09:34 96 Nasal Cannula 3.00 11/17/16 08:23 105 11/17/16 08:23 Nasal Cannula 3.00 11/17/16 08:00 101.8 109 20 120/68 90 11/17/16 02:00 96.5 84 16 113/75 98 11/17/16 00:18 97.4 100 16 108/68 96 11/17/16 00:04 98 11/16/16 21:18 96.8 104 16 123/82 92 11/16/16 21:09 Nasal Cannula 3.00 11/16/16 19:51 94 Nasal Cannula 3.00 11/16/16 19:47 94 I/O 11/16/16 11/16/16 11/16/16 11/17/16 11/17/16 11/17/16 07:00 15:00 23:00 07:00 15:00 23:00 Intake Total 120 ml 240 ml 0 ml 0 ml 536 ml Output Total 450 ml 400 ml 225 ml 350 ml Balance -330 ml -160 ml -225 ml -350 ml 536 ml Intake Oral 120 ml 240 ml 0 ml 0 ml IV Total 536 ml Output Urine Total 450 ml 400 ml 225 ml 350 ml # Bowel Movements 0 0 0 0 Result Diagram: 11/16/1651511/16/1616 Objective Remarks GENERAL: MBMN Male mild sob SKIN: Warm and dry. HEAD: Normocephalic. EYES: No scleral icterus. No injection or drainage. NECK: Supple, trachea midline. No JVD or lymphadenopathy. CARDIOVASCULAR: Regular rate and rhythm without murmurs, gallops, or rubs. RESPIRATORY: Breath sounds equal bilaterally. No accessory muscle use. GASTROINTESTINAL: Abdomen soft, non-tender, nondistended. MUSCULOSKELETAL: No cyanosis, or edema. BACK: Nontender without obvious deformity. No CVA tenderness. A/P Assessment and Plan COPD exac UTI Sepsis Techycardia CVA Indwelling Mazariegos PLAN: IV Solumedrol Aerosol nebs Cardiazem for HR controll. Abx Cefepime,Cipro and Flagyl per Darrick Mazariegos MD Nov 17, 2016 17:59
[2016-11-17] MEDS: TAMSULOSIN HCL 0.4 MG CAP PO SCH (22:26)
[2016-11-18] VITALS (8 sets, daily range): BP systolic 120–145; BP diastolic 69–88; PULSE 86–104; RESP 12–18; TEMP 98.1–99; O2SAT 95–100
[2016-11-18] MEDS: DULoxetine HCl DR 20 MG CAP PO SCH ×2 (08:42→22:03)
[2016-11-18] MEDS: methylPREDNISolone SOD SUCC 40 MG/1 ML VIAL IV PUSH SCH (08:43)
[2016-11-18] MEDS: metroNIDAZOLE 500 MG INJ 100 ML IV SCH ×4 (08:43→23:29)
[2016-11-18] MEDS: TOLTERODINE TARTRATE 4 MG CAP LA PO SCH (08:43)
[2016-11-18] MEDS: DILTIAZEM-CD 180 MG CAP ER PO SCH (08:43)
[2016-11-18] MEDS: LEVOTHYROXINE SODIUM 150 MCG TAB PO SCH (08:44)
[2016-11-18] MEDS: CIPROFLOXACIN 500 MG TAB PO SCH ×2 (08:44→22:04)
[2016-11-18] MEDS: APIXABAN 5 MG TABLET PO SCH ×2 (08:44→22:04)
[2016-11-18] MEDS: PANTOPRAZOLE SOD 40 MG DELAYED RELEASE TAB PO SCH (08:44)
[2016-11-18] MEDS: FLUoxetine HCL 20 MG CAP PO SCH (08:44)
[2016-11-18] MEDS: FUROSEMIDE 20 MG TAB PO SCH (08:44)
[2016-11-18] MEDS: CARBIDOPA/LEVODOPA 25 MG/100 MG TAB PO SCH ×3 (08:44→22:04)
[2016-11-18] MEDS: FINASTERIDE 5 MG TAB PO SCH (08:44)
[2016-11-18] MEDS: prednisoLONE ACETATE 1% OPHT SUSP 5 ML BTL RIGHT EYE SCH (08:45)
[2016-11-18] MEDS: FLUTICASONE 100 MCG/VILANTEROL 25 MCG INHALER INH SCH (08:45)
[2016-11-18] MEDS: SODIUM CHLORIDE 0.9% FLUSH 5 ML FLUSH FLUSH SCH ×2 (08:45→21:00)
[2016-11-18] MEDS: BUDESONIDE-FORMOTEROL 160/4.5 MCG INHALER INH SCH ×2 (08:45→21:00)
[2016-11-18] MEDS: DILTIAZEM 125 MG/NS 100 ML IV SCH ×2 (08:55)
--- NOTE | 2016-11-18 09:57 | HHI.PR ---
Subjective History of Present Illness Feels a little better No BM despite enemas Still refusing to eat Taking pills by mouth remained on cardizem drip HR 100s breathing is ok no cp Fever is down offers no other c/o Vitals/Results Intake & Output 11/17/16 11/17/16 11/18/16 15:00 23:00 07:00 Intake Total 536 ml 240 ml 90 ml Output Total 350 ml 700 ml 600 ml Balance 186 ml -460 ml -510 ml Intake Oral 240 ml 90 ml IV Total 536 ml Output Urine Total 350 ml 700 ml 600 ml Vital Signs Vital Signs Date Time Temp Pulse Resp B/P Pulse Ox O2 Delivery O2 Flow Rate FiO2 11/18/16 04:00 98.2 94 16 123/78 95 11/18/16 04:00 89 11/18/16 00:00 93 11/18/16 00:00 98.1 97 17 145/78 95 11/17/16 20:00 Nasal Cannula 3.00 11/17/16 20:00 97.5 95 17 115/78 95 11/17/16 20:00 92 11/17/16 19:59 Nasal Cannula 3.00 11/17/16 16:00 102.0 112 20 133/73 95 11/17/16 12:00 101.3 119 20 139/78 96 CBC/BMP: 11/16/16 0516 11/16/16 0516 Physical Exam General General Appearance: No Acute Distress, Comfortable Eyes Eye Exam: Pupils Equal, Sclera White Ears & Nose Ears & Nose Exam: Nasal Mucosa [place] Throat Throat Exam: Oral Mucosa [place] & Moist Neck Neck Exam: Neck Supple, Trachea Midline Pulmonary Resp Exam: Clear Bilaterally, Breath Sounds Equal, No Distress Cardiology CV Exam: Irregular, Tachycardia Gastrointestinal/Abdomen GI Exam: Soft, Non-Tender, Bowel Sounds Present, Non-Distended GI Remarks slightly distended No rigidity or rebound tenderness Integumentary Skin Exam: Clear, Warm Extremeties Extremities Exam: Pedal Pulses Palpable, Trace Edema Neurologic Neuro Exam: Awake Neuro Remarks lethargic but arousable 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 UTI, chronic indwelling catheter, poss. PNA Urine c/s +ve citrobacter freundii/pseudomona aeruginosa sensitive Repeat cultures are negative so far Antibiotics per infectious disease, ID input appreciated COPD exacerbation, poss. PNA, with exacerbation. -continue oxygen -Duonebs -taper IV steroids -Pulmonary input appreciated Atrial Fibrillation On IV Cardizem 5mg/hr change PO cardizem CD 360 mg qd , d/c IV cardizem when able to eat better by mouth cont Eliquis, reduce dose 2.5 mg bid constipation/fecal impaction, dilated cecum stool softener give 1/2 bottle mag citrate GI consult awaited Chronic indwelling cath, neurogenic bladder -continue with valles Thrombocytopenia, -improving ? med related -Off Heparin -HIT negative -f/u Platelets , Lumbar stenosis, non ambulatory -PT eval and tx Heparin for DVT prophylaxis. Proton pump inhibitor for GI prophylaxis. DNR status Improving slowly Condition guarded am labs will f/u Problem Qualifiers (1) Sepsis: Qualified Code: A41.9 - Sepsis, due to unspecified organism (2) UTI (urinary tract infection): Qualified Code: T83.511S - Urinary tract infection associated with indwelling urethral catheter, sequela (3) Peripheral neuropathy: Qualified Code: G62.9 - Peripheral polyneuropathy (4) Hypertension: Qualified Code: I10 - Essential hypertension (5) BPH (benign prostatic hyperplasia): Qualified Code: N40.0 - Benign prostatic hyperplasia, presence of lower urinary tract symptoms unspecified, unspecified morphology (6) GERD (gastroesophageal reflux disease): Qualified Code: K21.9 - Gastroesophageal reflux disease without esophagitis (7) Hyperlipidemia: Qualified Code: E78.5 - Hyperlipidemia, unspecified hyperlipidemia type Mitchell Turk MD Nov 18, 2016 09:57
[2016-11-18] MEDS: SODIUM CHLOR 0.9% 1000 ML INJ 1,000 ML IV SCH ×2 (12:10→20:00)
[2016-11-18 12:25] LABS: MEAN CELL VOLUME 82.9 FL (80.0-100.0); MEAN CORPUSCULAR HEMOGLOBIN 26.9 PG (27.0-34.0); MEAN CORPUSCULAR HGB CONC 32.5 % (32.0-36.0); PLATELET COUNT 73 TH/MM3 (150-450); RED BLOOD COUNT 4.71 MIL/MM3 (4.50-5.90); RED CELL DISTRIBUTION WIDTH 16.9 % (11.6-17.2); WHITE BLOOD COUNT 5.5 TH/MM3 (4.0-11.0)
[2016-11-18] MEDS: fentaNYL 75 MCG/HR PATCH T-DERMAL SCH (13:04)
[2016-11-18 13:07] LABS: REVIEW FLAG AUTO DIFF
[2016-11-18] MEDS: CEFEPIME INJ 2,000 MG in SODIUM CHLORIDE 0.9% INJ 100 ML IV SCH ×2 (15:32→15:35)
[2016-11-18] MEDS ORDERED: MAGNESIUM CITRATE SOLN 300 ML BTL PO ONE (16:00)
[2016-11-18] MEDS: TAMSULOSIN HCL 0.4 MG CAP PO SCH (22:03)
[2016-11-19] VITALS (8 sets, daily range): BP systolic 135–150; BP diastolic 78–94; PULSE 89–107; RESP 12–20; TEMP 98.4–101.6; O2SAT 96–98
[2016-11-19] MEDS: SODIUM CHLOR 0.9% 1000 ML INJ 1,000 ML IV SCH ×2 (04:00→08:19)
[2016-11-19] MEDS: CEFEPIME INJ 2,000 MG in SODIUM CHLORIDE 0.9% INJ 100 ML IV SCH ×2 (05:54→16:03)
[2016-11-19] MEDS: LEVOTHYROXINE SODIUM 150 MCG TAB PO SCH (05:56)
[2016-11-19] MEDS: CARBIDOPA/LEVODOPA 25 MG/100 MG TAB PO SCH ×3 (05:56→21:20)
[2016-11-19] MEDS: ACETAMINOPHEN 325 MG TAB PO PRN ×2 (08:17→18:15)
[2016-11-19] MEDS: metroNIDAZOLE 500 MG INJ 100 ML IV SCH ×2 (08:18→16:04)
[2016-11-19] MEDS: prednisoLONE ACETATE 1% OPHT SUSP 5 ML BTL RIGHT EYE SCH (08:18)
[2016-11-19] MEDS: methylPREDNISolone SOD SUCC 40 MG/1 ML VIAL IV PUSH SCH (08:18)
[2016-11-19] MEDS: SODIUM CHLORIDE 0.9% FLUSH 5 ML FLUSH FLUSH SCH ×2 (08:18→21:00)
[2016-11-19] MEDS: BUDESONIDE-FORMOTEROL 160/4.5 MCG INHALER INH SCH ×2 (08:19→21:20)
[2016-11-19] MEDS: FLUTICASONE 100 MCG/VILANTEROL 25 MCG INHALER INH SCH (08:19)
[2016-11-19] MEDS: CIPROFLOXACIN 500 MG TAB PO SCH ×2 (08:25→20:55)
[2016-11-19] MEDS: DILTIAZEM-CD 180 MG CAP ER PO SCH ×2 (08:25→08:40)
[2016-11-19] MEDS: DILTIAZEM 125 MG/NS 100 ML IV SCH ×2 (08:59)
[2016-11-19] MEDS: FINASTERIDE 5 MG TAB PO SCH (09:00)
[2016-11-19] MEDS: TOLTERODINE TARTRATE 4 MG CAP LA PO SCH (09:00)
[2016-11-19] MEDS: FLUoxetine HCL 20 MG CAP PO SCH (09:00)
[2016-11-19] MEDS: APIXABAN 5 MG TABLET PO SCH ×2 (09:00→20:55)
[2016-11-19] MEDS: DULoxetine HCl DR 20 MG CAP PO SCH ×2 (09:00→20:55)
[2016-11-19] MEDS: FUROSEMIDE 20 MG TAB PO SCH (09:00)
[2016-11-19] MEDS: PANTOPRAZOLE SOD 40 MG DELAYED RELEASE TAB PO SCH (09:00)
[2016-11-19 09:46] LABS: HEMATOCRIT 40.5 % (39.0-51.0); MEAN CELL VOLUME 83.9 FL (80.0-100.0); MEAN CORPUSCULAR HEMOGLOBIN 26.4 PG (27.0-34.0); MEAN CORPUSCULAR HGB CONC 31.4 % (32.0-36.0); PLATELET COUNT 120 TH/MM3 (150-450); RED BLOOD COUNT 4.82 MIL/MM3 (4.50-5.90); RED CELL DISTRIBUTION WIDTH 16.7 % (11.6-17.2); REVIEW FLAG FINAL; WHITE BLOOD COUNT 13.5 TH/MM3 (4.0-11.0)
[2016-11-19 10:09] LABS: BICARBONATE 33.5 MEQ/L (21.0-32.0); POTASSIUM 3.9 MEQ/L (3.5-5.1)
--- NOTE | 2016-11-19 15:35 | HHI.PR ---
Subjective History of Present Illness still refusing to eat refusing to take pills had 2 loose BM remained on IV cardizem breathing is ok no cp Fever is down belly is still distended offers no other c/o Vitals/Results Intake & Output 11/18/16 11/18/16 11/19/16 15:00 23:00 07:00 Intake Total 0 ml Output Total 1000 ml 550 ml 550 ml Balance -1000 ml -550 ml -550 ml Intake Oral 0 ml Output Urine Total 1000 ml 550 ml 550 ml # Bowel Movements 1 1 Vital Signs Vital Signs Date Time Temp Pulse Resp B/P Pulse Ox O2 Delivery O2 Flow Rate FiO2 11/19/16 12:00 99.8 100 12 149/83 97 11/19/16 08:04 Nasal Cannula 3.00 50 11/19/16 08:00 101.2 107 12 148/94 97 11/19/16 04:00 99.6 107 18 145/86 96 11/19/16 04:00 103 11/19/16 00:45 96 Nasal Cannula 3.00 11/19/16 00:00 105 11/19/16 00:00 99.5 103 18 139/78 98 11/18/16 20:00 Nasal Cannula 3.00 11/18/16 20:00 98 11/18/16 20:00 98.1 104 18 143/88 96 11/18/16 17:04 98 Nasal Cannula 3.00 11/18/16 16:00 98.9 99 12 120/85 96 CBC/BMP: 11/19/16 0847 11/19/16 0847 Lab Results Laboratory Tests Test 11/19/16 08:47 White Blood Count 13.5 TH/MM3 Red Blood Count 4.82 MIL/MM3 Hemoglobin 12.7 GM/DL Hematocrit 40.5 % Mean Corpuscular Volume 83.9 FL Mean Corpuscular Hemoglobin 26.4 PG Mean Corpuscular Hemoglobin 31.4 % Concent Red Cell Distribution Width 16.7 % Platelet Count 120 TH/MM3 Mean Platelet Volume 8.5 FL Sodium Level 151 MEQ/L Potassium Level 3.9 MEQ/L Chloride Level 112 MEQ/L Carbon Dioxide Level 33.5 MEQ/L Anion Gap 6 MEQ/L Blood Urea Nitrogen 22 MG/DL Creatinine 0.63 MG/DL Estimat Glomerular Filtration 151 ML/MIN Rate Random Glucose 117 MG/DL Calcium Level 8.0 MG/DL Physical Exam General General Appearance: No Acute Distress, Comfortable Eyes Eye Exam: Pupils Equal, Sclera White Ears & Nose Ears & Nose Exam: Nasal Mucosa [place] Throat Throat Exam: Oral Mucosa [place] & Moist Neck Neck Exam: Neck Supple, Trachea Midline Pulmonary Resp Exam: Clear Bilaterally, Breath Sounds Equal, No Distress Cardiology CV Exam: Irregular, Tachycardia Gastrointestinal/Abdomen GI Exam: Soft, Non-Tender, Bowel Sounds Present, Non-Distended GI Remarks slightly distended No rigidity or rebound tenderness Integumentary Skin Exam: Clear, Warm Extremeties Extremities Exam: Pedal Pulses Palpable, Trace Edema Neurologic Neuro Exam: Awake Neuro Remarks lethargic but arousable 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 UTI, chronic indwelling catheter, poss. PNA Urine c/s +ve citrobacter freundii/pseudomona aeruginosa sensitive Repeat cultures are negative so far Antibiotics per infectious disease, ID input appreciated COPD exacerbation, poss. PNA, with exacerbation. -continue oxygen -Duonebs -taper IV steroids -Pulmonary input appreciated Atrial Fibrillation On IV Cardizem 10mg/hr oral cardizem when able to take pills by mouth cont Eliquis, reduce dose 2.5 mg bid constipation/fecal impaction, dilated cecum stool softener give 1/2 bottle mag citrate f/u AXR GI consult change IV fuid D5 1/2 NS 100 cc/hr f/u Na level Chronic indwelling cath , neurogenic bladder -continue with valles Thrombocytopenia, -improving ? med related -Off Heparin -HIT negative -f/u Platelets , Lumbar stenosis, non ambulatory -PT eval and tx Heparin for DVT prophylaxis. Proton pump inhibitor for GI prophylaxis. DNR status Improving slowly Condition guarded am labs will f/u Problem Qualifiers (1) Sepsis: Qualified Code: A41.9 - Sepsis, due to unspecified organism (2) UTI (urinary tract infection): Qualified Code: T83.511S - Urinary tract infection associated with indwelling urethral catheter, sequela (3) Peripheral neuropathy: Qualified Code: G62.9 - Peripheral polyneuropathy (4) Hypertension: Qualified Code: I10 - Essential hypertension (5) BPH (benign prostatic hyperplasia): Qualified Code: N40.0 - Benign prostatic hyperplasia, presence of lower urinary tract symptoms unspecified, unspecified morphology (6) GERD (gastroesophageal reflux disease): Qualified Code: K21.9 - Gastroesophageal reflux disease without esophagitis (7) Hyperlipidemia: Qualified Code: E78.5 - Hyperlipidemia, unspecified hyperlipidemia type Mitchell Turk MD Nov 19, 2016 15:35
[2016-11-19] MEDS ORDERED: MINERAL OIL ENEMA 118 ML BTL RECTAL ONE (16:00)
[2016-11-19] MEDS: DEXT 5%-NACL 0.45% 1000 ML INJ 1,000 ML IV SCH (16:04)
--- NOTE | 2016-11-19 16:58 | RADRPT ---
EXAM DATE/TIME: 11/19/2016 16:25 [facility] COMPARISON: ABDOMEN KUB ONLY, November 16, 2016, 17:27. INDICATIONS : Abdominal pain. Evaluate for obstruction. MEDICAL HISTORY : Parkinson's. Hypercholesterolemia. Neurogenic bladder. CVA. A-fib. COPD. Asthma. SURGICAL HISTORY : Cholecystectomy. Appendectomy. Spinal cord stimulator. ENCOUNTER: Subsequent ACUITY: 1 week PAIN SCORE: Non-responsive. LOCATION: All quadrants. FINDINGS: There is an electronic device seen over the left pelvic region with the lead directed into the right sacral region. There is air and stool seen in the colon. The cecum continues to be distended measur ing 13.3 cm in diameter. This is unchanged from the prior examination. Free air is not seen. No ot her dilated bowel is seen. There is some degenerative change in the lumbar spine. CONCLUSION: Persistent dilatation of the cecum. Arnoldo Motley MD on November 19, 2016 at 16:47 Board Certified Radiologist. This report was verified electronically.
[2016-11-19] MEDS: TAMSULOSIN HCL 0.4 MG CAP PO SCH (20:56)
[2016-11-20] VITALS (8 sets, daily range): BP systolic 117–147; BP diastolic 59–91; PULSE 73–141; RESP 2–22; TEMP 98.9–100.6; O2SAT 94–98
[2016-11-20] MEDS: metroNIDAZOLE 500 MG INJ 100 ML IV SCH ×4 (01:44→22:42)
[2016-11-20] MEDS: DEXT 5%-NACL 0.45% 1000 ML INJ 1,000 ML IV SCH ×2 (03:49→22:08)
[2016-11-20] MEDS: CEFEPIME INJ 2,000 MG in SODIUM CHLORIDE 0.9% INJ 100 ML IV SCH ×2 (05:00→18:45)
[2016-11-20] MEDS: CARBIDOPA/LEVODOPA 25 MG/100 MG TAB PO SCH ×3 (06:03→22:05)
[2016-11-20] MEDS: LEVOTHYROXINE SODIUM 150 MCG TAB PO SCH (06:04)
[2016-11-20 08:20] LABS: HEMATOCRIT 42.2 % (39.0-51.0); MEAN CELL VOLUME 84.2 FL (80.0-100.0); MEAN CORPUSCULAR HEMOGLOBIN 26.8 PG (27.0-34.0); MEAN CORPUSCULAR HGB CONC 31.9 % (32.0-36.0); PLATELET COUNT 126 TH/MM3 (150-450); RED BLOOD COUNT 5.02 MIL/MM3 (4.50-5.90); RED CELL DISTRIBUTION WIDTH 16.9 % (11.6-17.2); REVIEW FLAG FINAL; WHITE BLOOD COUNT 13.6 TH/MM3 (4.0-11.0)
[2016-11-20] MEDS: DILTIAZEM-CD 180 MG CAP ER PO SCH (09:00)
[2016-11-20] MEDS: ACETAMINOPHEN 325 MG TAB PO PRN (09:39)
[2016-11-20] MEDS: APIXABAN 5 MG TABLET PO SCH (09:39)
[2016-11-20] MEDS: methylPREDNISolone SOD SUCC 40 MG/1 ML VIAL IV PUSH SCH (09:39)
[2016-11-20] MEDS: PANTOPRAZOLE SOD 40 MG DELAYED RELEASE TAB PO SCH (09:40)
[2016-11-20] MEDS: DULoxetine HCl DR 20 MG CAP PO SCH ×2 (09:40→22:05)
[2016-11-20] MEDS: FUROSEMIDE 20 MG TAB PO SCH (09:40)
[2016-11-20] MEDS: FINASTERIDE 5 MG TAB PO SCH (09:40)
[2016-11-20] MEDS: FLUoxetine HCL 20 MG CAP PO SCH (09:41)
[2016-11-20] MEDS: SODIUM CHLORIDE 0.9% FLUSH 5 ML FLUSH FLUSH SCH ×2 (09:41→22:07)
[2016-11-20] MEDS: CIPROFLOXACIN 500 MG TAB PO SCH ×2 (09:41→22:05)
[2016-11-20] MEDS: TOLTERODINE TARTRATE 4 MG CAP LA PO SCH (09:41)
[2016-11-20] MEDS: BUDESONIDE-FORMOTEROL 160/4.5 MCG INHALER INH SCH ×2 (09:42→22:08)
[2016-11-20] MEDS: FLUTICASONE 100 MCG/VILANTEROL 25 MCG INHALER INH SCH (09:42)
[2016-11-20] MEDS: prednisoLONE ACETATE 1% OPHT SUSP 5 ML BTL RIGHT EYE SCH (09:42)
--- NOTE | 2016-11-20 10:09 | HHI.PR ---
Subjective History of Present Illness still refusing to eat remained on IV cardizem breathing is ok belly still appear distended no cp Fever is down offers no other c/o Vitals/Results Intake & Output 11/19/16 11/19/16 11/20/16 15:00 23:00 07:00 Intake Total 0 ml 30 ml 10 ml Output Total 1600 ml 1000 ml 1400 ml Balance -1600 ml -970 ml -1390 ml Intake Oral 0 ml 30 ml 10 ml Output Urine Total 1600 ml 1000 ml 1400 ml # Bowel Movements 0 0 0 Vital Signs Vital Signs Date Time Temp Pulse Resp B/P Pulse Ox O2 Delivery O2 Flow Rate FiO2 11/20/16 08:00 100.6 100 12 139/84 94 11/20/16 04:56 100.5 99 2 142/91 97 11/20/16 00:00 98.9 73 20 147/85 97 11/19/16 20:00 98.4 89 20 150/87 97 11/19/16 20:00 Nasal Cannula 3.00 50 11/19/16 16:00 101.6 102 12 135/90 97 11/19/16 12:00 99.8 100 12 149/83 97 CBC/BMP: 11/20/16 0702 11/19/16 0847 Lab Results Laboratory Tests Test 11/20/16 07:02 White Blood Count 13.6 TH/MM3 Red Blood Count 5.02 MIL/MM3 Hemoglobin 13.5 GM/DL Hematocrit 42.2 % Mean Corpuscular Volume 84.2 FL Mean Corpuscular Hemoglobin 26.8 PG Mean Corpuscular Hemoglobin 31.9 % Concent Red Cell Distribution Width 16.9 % Platelet Count 126 TH/MM3 Mean Platelet Volume 8.0 FL Physical Exam General General Appearance: No Acute Distress, Comfortable Eyes Eye Exam: Pupils Equal, Sclera White Ears & Nose Ears & Nose Exam: Nasal Mucosa [place] Throat Throat Exam: Oral Mucosa [place] & Moist Neck Neck Exam: Neck Supple, Trachea Midline Pulmonary Resp Exam: Clear Bilaterally, Breath Sounds Equal, No Distress Cardiology CV Exam: Irregular, Tachycardia Gastrointestinal/Abdomen GI Exam: Soft, Non-Tender, Bowel Sounds Present, Non-Distended GI Remarks slightly distended No rigidity or rebound tenderness Integumentary Skin Exam: Clear, Warm Extremeties Extremities Exam: Pedal Pulses Palpable, Trace Edema Neurologic Neuro Exam: Awake Neuro Remarks lethargic but arousable 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 Psychiatric Psych Exam: Appropriate Responses VTE Prophylaxis VTE Prophylaxis Device: SCDs VTE Prophylaxis Meds: Heparin Assessment/Plan Problem List: (1) Sepsis (2) COPD exacerbation (3) Chronic indwelling Mazariegos catheter (4) UTI (urinary tract infection) (5) Peripheral neuropathy (6) Hypertension (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 med related Proton pump inhibitor for GI prophylaxis. DNR status Condition guarded am labs will f/u Problem Qualifiers (1) Sepsis: Qualified Code: A41.9 - Sepsis, due to unspecified organism (2) UTI (urinary tract infection): Qualified Code: T83.511S - Urinary tract infection associated with indwelling urethral catheter, sequela (3) Peripheral neuropathy: Qualified Code: G62.9 - Peripheral polyneuropathy (4) Hypertension: Qualified Code: I10 - Essential hypertension (5) BPH (benign prostatic hyperplasia): Qualified Code: N40.0 - Benign prostatic hyperplasia, presence of lower urinary tract symptoms unspecified, unspecified morphology (6) GERD (gastroesophageal reflux disease): Qualified Code: K21.9 - Gastroesophageal reflux disease without esophagitis (7) Hyperlipidemia: Qualified Code: E78.5 - Hyperlipidemia, unspecified hyperlipidemia type Mitchell Turk MD Nov 20, 2016 10:09 will f/u Problem Qualifiers (1) Sepsis: Qualified Code: A41.9 - Sepsis, due to unspecified organism (2) UTI (urinary tract infection): Qualified Code: T83.511S - Urinary tract infection associated with indwelling urethral catheter, sequela (3) Peripheral neuropathy: Qualified Code: G62.9 - Peripheral polyneuropathy (4) Hypertension: Qualified Code: I10 - Essential hypertension (5) BPH (benign prostatic hyperplasia): Qualified Code: N40.0 - Benign prostatic hyperplasia, presence of lower urinary tract symptoms unspecified, unspecified morphology (6) GERD (gastroesophageal reflux disease): Qualified Code: K21.9 - Gastroesophageal reflux disease without esophagitis (7) Hyperlipidemia: Qualified Code: E78.5 - Hyperlipidemia, unspecified hyperlipidemia type Mitchell Turk MD Nov 20, 2016 10:09
[2016-11-20 11:00] LABS: BICARBONATE 33.6 MEQ/L (21.0-32.0)
[2016-11-20] MEDS ORDERED: DIATRIZOATE MEGLUM/DIATRIZOATE SOD 9 ML CUP PO ONE (11:30)
--- NOTE | 2016-11-20 14:29 | PD.CONS ---
HPI History of Present Illness This is a 71 year old male patient who is currently hospitalized for sepsis secondary to UTI, atrial fibrillation, and COPD exacerbation and he is receiving antibiotics as recommended by infectious disease. He has had an issue with constipation and fecal impaction and a abdominal x-ray () revealed persistent dilatation of the cecum. He was given stool softeners and half a bottle of magnesium citrate. Of note, he had a KUB on (11/16/16) and this revealed colonic distention with a large amount of stool and air, cecum measuring up to 13.3 cm. Ileus/nonmechanical obstruction thought most likely. According to the EMR he had 2 bowel movements yesterday. I am unable to obtain any history from the patient and therefore the history has been obtained from the EMR and the nursing staff. The nurse reports that he has not had any vomiting or bowel movements today. She reports that he refuses to eat and will not take his medications. Speech therapy is following the patient for dysphagia and have recommended a pured diet with nectar consistency thickened liquids, but he is not eating anything. The patient has a history of dysphasia and has been evaluated by our service for this. He underwent a EGD (04/26/15) and this revealed gastritis, large esophageal varices, no dilatation was done. It was recommended that he have a repeat endoscopy with band ligation of his varices in 4-6 weeks. It is unclear if he had this done. He had a colonoscopy (06/06/11) and this revealed a colon polyp (tubular adenoma) and diverticulosis. ( Annamaria Clayton) PFSH Past Medical History CVA COPD Hypothyroidism Renal insufficiency Neuropathy Degenerative disc disease Atrial fibrillation Hypertension. Hyperlipidemia Enlarged prostate Radiculopathy Tubular adenoma CVA Parkinson's disease Dysphagia Past Surgical History History of appendectomy Cholecystectomy Bilateral foot surgery Multiple tooth extractions (Annamaria Clayton) Coded Allergies: MRI PRECAUTION (Verified Allergy, Severe, PT HAS INTERNAL STIMULATOR (ME) , 11/12/16) Vancomycin (Verified Allergy, Mild, Rash, 11/13/16) developed hives, pruritus *MDRO Multi-Drug Resistant Organism (Verified Adverse Reaction, Unknown, ) MRSA PCR Screen positive 09/29/15. Medications Allergies Coded Allergies Type Severity Reaction Last Updated Verified MRI PRECAUTION Allergy Severe PT HAS INTERNAL STIMULATOR (ME) 11/12/16 Yes Vancomycin Allergy Mild Rash 11/13/16 Yes *MDRO Multi-Drug Resistant Organism Adverse Reaction Unknown 11/12/16 Yes Active Scripts Medications Dose Route/Sig Days Date Category Dose Instructions Xanax (Alprazolam) 0.25 Mg Tab 0.25 Mg PO Q8HR PRN 11/12/16 Reported [place] (Hydrocodone-Acetaminophen) 5-325 mg Tab 1 Tab PO Q4H PRN 11/12/16 Reported Duragesic Patch 72 HR (Fentanyl) 75 Mcg/Hr Patch 75 Mcg T-DERMAL Q72H 11/12/16 Reported Remove old patch when new one placed. Mapap (Acetaminophen) 500 Mg Tab 500 Mg PO Q4HR PRN 11/12/16 Reported Duoneb (Ipratropium-Albuterol Neb) 0.5-2.5 Mg/3 Ml Neb 1 Nebule INH TID NEB 11/12/16 Reported Ditropan XL 24 HR (Oxybutynin Chloride) 10 Mg Tab 10 Mg PO BID 11/12/16 Reported Advair Diskus Inh (Fluticasone-Salmeterol Inh) 250-50 Mcg/Blist Aer 1 Puff INH BID 11/12/16 Reported Rinse mouth after use. Protonix Liq (Pantoprazole Sodium) 40 Mg Pkt 40 Mg PO DAILY 11/12/16 Reported Fluoxetine (Fluoxetine HCl) 20 Mg Cap 20 Mg PO DAILY 11/12/16 Reported Prednisone 20 Mg Tab 20 Mg PO DAILY 7 09/11/16 Rx Ferrous Sulfate 325 Mg Tab 325 Mg PO DAILY 09/07/16 Reported Albuterol Neb (Albuterol Sulfate) 0.63 Mg/3 Ml Neb 0.63 Mg NEB Q4HR NEB PRN 09/07/16 Reported Omnipred Opth Drops (Prednisolone Acetate Opth Drops) 1% Susp 1 Drop RIGHT EYE DAILY 09/07/16 Reported Nitroglycerin SL (Nitroglycerin) 0.3 Mg Subl 0.3 Mg SL DIRECTED PRN 09/07/16 Reported ONE TABLET UNDER THE TONGUE NEEDED FOR CHEST PAIN, MAY REPEAT EVERY FIVE MINUTES FOR A TOTAL OF 3 DOSES OR CALL 911 IF NO RELIEF Levothyroxine (Levothyroxine Sodium) 150 Mcg Tab 150 Mcg PO DAILY 09/07/16 Reported Lasix (Furosemide) 20 Mg Tab 20 Mg PO DAILY 09/07/16 Reported Flomax (Tamsulosin HCl) 0.4 Mg Cap 0.4 Mg PO HS 09/07/16 Reported Breo Ellipta Inh (Fluticasone/Vilanterol) 100-25 Mcg/Act Inh 1 Puff INH DAILY 09/07/16 Reported Use daily at the same time. Sinemet (Carbidopa-Levodopa) 25-100 Mg Tab 1 Tab PO Q8HR 09/07/16 Reported Diltiazem (Diltiazem HCl) 30 Mg Tab 30 Mg PO QID 09/07/16 Reported Finasteride 5 Mg Tab 5 Mg PO DAILY 09/07/16 Reported Do not crush. Duloxetine DR (Duloxetine HCl) 20 Mg Capdr 20 Mg PO BID 09/07/16 Reported Family History Unable to obtain Social History Unable to obtain according to the EMR he quit smoking and drinking in 1992 ( Annamaria Clayton) Review of Systems ROS Unable to obtain (Annamaria Clayton) GI Exam Vitals I&O Vital Signs Date Time Temp Pulse Resp B/P Pulse Ox O2 Delivery O2 Flow Rate FiO2 11/20/16 12:00 99.0 98 11 140/85 98 11/20/16 08:00 100.6 100 12 139/84 94 11/20/16 04:56 100.5 99 2 142/91 97 11/20/16 00:00 98.9 73 20 147/85 97 11/19/16 20:00 98.4 89 20 150/87 97 11/19/16 20:00 Nasal Cannula 3.00 50 11/19/16 16:00 101.6 102 12 135/90 97 I/O 11/19/16 11/19/16 11/19/16 11/20/16 11/20/16 11/20/16 07:00 15:00 23:00 07:00 15:00 23:00 Intake Total 0 ml 30 ml 10 ml Output Total 550 ml 1600 ml 1000 ml 1400 ml Balance -550 ml -1600 ml -970 ml -1390 ml Intake Oral 0 ml 30 ml 10 ml Output Urine Total 550 ml 1600 ml 1000 ml 1400 ml # Bowel Movements 1 0 0 0 Imaging Last Impressions Abdomen X-Ray 11/19/16 0000 Signed Impressions: Service Date/Time: Saturday, November 19, 2016 16:25 - CONCLUSION: Persistent dilatation of the cecum. Arnoldo Motley MD Renal Ultrasound 11/16/16 0000 Signed Impressions: Service Date/Time: October 16:50 - CONCLUSION: Study is limited. The right kidney is not seen clearly. The left kidney is without an acute abnormality. Mazariegos in the bladder. Arnoldo Coombs MD Chest X-Ray 11/16/16 0000 Signed Impressions: Service Date/Time: October 13:46 - CONCLUSION: Persistent hypoinflation with improving bibasilar atelectatic changes. Joni Young MD Chest CT 11/12/16 0000 Signed Impressions: Service Date/Time: Saturday, November 12, 2016 16:38 - CONCLUSION: Mild emphysematous changes. I do not see any consolidative changes. David Gates MD FACR Laboratory Test 11/20/16 07:02 White Blood Count 13.6 TH/MM3 Red Blood Count 5.02 MIL/MM3 Hemoglobin 13.5 GM/DL Hematocrit 42.2 % Mean Corpuscular Volume 84.2 FL Mean Corpuscular Hemoglobin 26.8 PG Mean Corpuscular Hemoglobin 31.9 % Concent Red Cell Distribution Width 16.9 % Platelet Count 126 TH/MM3 Mean Platelet Volume 8.0 FL Sodium Level 147 MEQ/L Potassium Level 4.0 MEQ/L Chloride Level 109 MEQ/L Carbon Dioxide Level 33.6 MEQ/L Anion Gap 4 MEQ/L Blood Urea Nitrogen 18 MG/DL Creatinine 0.51 MG/DL Estimat Glomerular Filtration 193 ML/MIN Rate Random Glucose 142 MG/DL Calcium Level 8.2 MG/DL Date/Time Procedure Status Source Growth 11/16/16 16:20 Urine Culture - Final Complete Urine Catheterized Urine NO GROWTH IN 48 HOURS. 11/16/16 15:17 Aerobic Blood Culture - Preliminary Resulted Blood Peripheral NO GROWTH IN 4 DAYS 11/16/16 15:17 Anaerobic Blood Culture - Preliminary Resulted Blood Peripheral NO GROWTH IN 4 DAYS Physical Examination HEENT: Normocephalic; atraumatic; no jaundice. CHEST: CTA, diminished patient CARDIAC: RRR ABDOMEN: Soft, distended, nontender; no hepatosplenomegaly; bowel sounds are present in all four quadrants. EXTREMITIES: No clubbing, cyanosis, or edema. AIRFRAME AND POWERPLANT MECHANIC: Nonverbal, right hand contracted. (Annamaria Clayton) Assessment and Plan Plan ASSESSMENT: - Ileus, Constipation. KUB (11/19/16) revealed persistent dilatation of the cecum. He was given stool softeners and half a bottle of magnesium citrate. Of note, he had a KUB on (11/16/16) and this revealed colonic distention with a large amount of stool and air, cecum measuring up to 13.[address] Scan abdomen/pelvis has been ordered and is pending. He had a colonoscopy (06/06/11) and this revealed a colon polyp (tubular adenoma) and diverticulosis. Clinically, he is soft, distended, he does not appear to be in significant discomfort. Will await CT report and try to contact family to discuss possible decompressive colonoscopy. - Dysphagia. EGD (04/26/15) and this revealed gastritis, large esophageal varices , no dilatation was done. It was recommended that he have a repeat endoscopy with band ligation of his varices in 4-6 weeks. It is unclear if he had this done. Pt's niece is listed as next of kin, states she is the decision maker. She states that he quit eating prior to coming into the hospital and told her that "he was tired" and just gave up. She also states that she would want to continue aggressive measures at this time and that she "does not want to play God and make life and decisions." As far as a PEG tube if it came to that, then she would not want to make that decision and let the patient make it. Tried to explain that he is nonverbal at this time to me, but she states that he just does not want to speak to a woman and that he is quite capable of making his decisions. PLAN: - NPO - Await CT scan of the abdomen and pelvis - Obtain consents for decompressive colonoscopy. Spoke to next of kin Dasha Clayton re: procedure, risks, and benefits- . - Further recommendations to follow after results of CT Scan - Recommend holding eliquis for possible procedure (had today's dose) - May need decompressive colonoscopy - Pt seen and examined by Dr. Joel and myself and this note is written on his behalf (Annamaria Clayton) Physician Comments seen, examined agree with above repeat abdominal x-ray, mild dilated cecum, improvement in size, ct pending depending on clinical status and ct report we will consider colonoscopy in am ( Barbara Joel MD) Annamaria Clayton Nov 20, 2016 14:29 Barbara Joel MD Nov 20, 2016 19:07
--- NOTE | 2016-11-20 14:42 | HHI.IDPN ---
Subjective Subjective Remarks Notes reviewed Temps up yesterday, low grade this morning (+) BM GI has been consulted Valles cath changed 11/16 Renal US - L kidney ok, R kidney not visualized KUB - full of stool and cecum 13.3 cm Mental status same - awake, following and not verbal Repeat AXR 11/19 same dilated cecum Antibiotics Cefepime Cipro Flagyl Lines PIV Past Medical History COPD / bronchial asthma. History of atrial fibrillation CVA with weakness. Hypothyroidism. BPH. Peripheral arterial disease Parkinson's disease. Neurogenic bladder with chronic indwelling Valles catheter Chronic back pain post back pain stimulator Arthritis. Past Surgical History History of appendectomy. Cholecystectomy. Bilateral foot surgery. Multiple tooth extractions Allergies: Coded Allergies: MRI PRECAUTION (Verified Allergy, Severe, PT HAS INTERNAL STIMULATOR (ME) , 11/12/16) Vancomycin (Verified Allergy, Mild, Rash, 11/13/16) developed hives, pruritus *MDRO Multi-Drug Resistant Organism (Verified Adverse Reaction, Unknown, ) MRSA PCR Screen positive 09/29/15. Objective . Vital Signs Date Time Temp Pulse Resp B/P Pulse Ox O2 Delivery O2 Flow Rate FiO2 11/20/16 12:00 99.0 98 11 140/85 98 11/20/16 08:00 100.6 100 12 139/84 94 11/20/16 04:56 100.5 99 2 142/91 97 11/20/16 00:00 98.9 73 20 147/85 97 11/19/16 20:00 98.4 89 20 150/87 97 11/19/16 20:00 Nasal Cannula 3.00 50 11/19/16 16:00 101.6 102 12 135/90 97 11/19/16 11/19/16 11/20/16 15:00 23:00 07:00 Intake Total 0 ml 30 ml 10 ml Output Total 1600 ml 1000 ml 1400 ml Balance -1600 ml -970 ml -1390 ml Intake Oral 0 ml 30 ml 10 ml Output Urine Total 1600 ml 1000 ml 1400 ml # Bowel Movements 0 0 0 . Laboratory Tests Test 11/19/16 11/20/16 08:47 07:02 White Blood Count 13.5 TH/MM3 13.6 TH/MM3 Red Blood Count 4.82 MIL/MM3 5.02 MIL/MM3 Hemoglobin 12.7 GM/DL 13.5 GM/DL Hematocrit 40.5 % 42.2 % Mean Corpuscular Volume 83.9 FL 84.2 FL Mean Corpuscular Hemoglobin 26.4 PG 26.8 PG Mean Corpuscular Hemoglobin 31.4 % 31.9 % Concent Red Cell Distribution Width 16.7 % 16.9 % Platelet Count 120 TH/MM3 126 TH/MM3 Mean Platelet Volume 8.5 FL 8.0 FL Laboratory Tests Test 11/19/16 11/20/16 08:47 07:02 Sodium Level 151 MEQ/L 147 MEQ/L Potassium Level 3.9 MEQ/L 4.0 MEQ/L Chloride Level 112 MEQ/L 109 MEQ/L Carbon Dioxide Level 33.5 MEQ/L 33.6 MEQ/L Anion Gap 6 MEQ/L 4 MEQ/L Blood Urea Nitrogen 22 MG/DL 18 MG/DL Creatinine 0.63 MG/DL 0.51 MG/DL Estimat Glomerular Filtration 151 ML/MIN 193 ML/MIN Rate Random Glucose 117 MG/DL 142 MG/DL Calcium Level 8.0 MG/DL 8.2 MG/DL Imaging Abdomen X-Ray 11/19/16 0000 Signed Impressions: Service Date/Time: Saturday, November 19, 2016 16:25 - CONCLUSION: Persistent dilatation of the cecum. Arnoldo Motley MD Renal Ultrasound 11/16/16 0000 Signed Impressions: Service Date/Time: October 16:50 - CONCLUSION: Study is limited. The right kidney is not seen clearly. The left kidney is without an acute abnormality. Valles in the bladder. Arnoldo Coombs MD Chest X-Ray 11/16/16 0000 Signed Impressions: Service Date/Time: October 13:46 - CONCLUSION: Persistent hypoinflation with improving bibasilar atelectatic changes. Joni Young MD Chest CT 11/12/16 0000 Signed Impressions: Service Date/Time: Saturday, November 12, 2016 16:38 - CONCLUSION: Mild emphysematous changes. I do not see any consolidative changes. David Gates MD FACR Abdomen X-Ray 11/19/16 0000 Signed Impressions: Service Date/Time: Saturday, November 19, 2016 16:25 - CONCLUSION: Persistent dilatation of the cecum. Arnoldo Motley MD Renal Ultrasound 11/16/16 0000 Signed Impressions: Service Date/Time: October 16:50 - CONCLUSION: Study is limited. The right kidney is not seen clearly. The left kidney is without an acute abnormality. Valles in the bladder. Arnoldo Coombs MD Chest X-Ray 11/16/16 0000 Signed Impressions: Service Date/Time: , November 16, 2016 13:46 - CONCLUSION: Persistent hypoinflation with improving bibasilar atelectatic changes. Joni Young MD Abdomen X-Ray 11/16/16 0000 Signed Impressions: Service Date/Time: October 17:27 - CONCLUSION: Colonic distention with a large amount of stool and air. Ileus/nonmechanical obstruction thought most likely. Arnoldo Coombs MD Chest CT 11/12/16 0000 Signed Impressions: Service Date/Time: Saturday, November 12, 2016 16:38 - CONCLUSION: Mild emphysematous changes. I do not see any consolidative changes. David Gates MD FACR Physical Exam GENERAL: he is awake, he is focusing and occasionally would nod or shake his head to answer my questions, nonverbal. He has tremulousness in his upper extremities, and has spasticity and contractures bilaterally, worse in the right upper extremity compared to the left upper extremity. SKIN: Warm and dry, no rash noted, no embolic lesions. HEENT: Frost conjunctivae, no petechia or hemorrhage. No scleral icterus. Has white coating on his tongue. NECK: Trachea midline. No JVD or lymphadenopathy. Neck rigid, but no tenderness. CARDIOVASCULAR: Regular rate and rhythm without murmurs, gallops, or rubs. RESPIRATORY: Clear to auscultation. Breath sounds equal bilaterally. No wheezes , rales, or rhonchi. Decreased breath sounds at the bases. GASTROINTESTINAL: Abdomen distended, with diffuse abdominal tenderness. Bowel sounds are hypoactive. He has some ecchymosis on his abdominal wall from subcutaneous injections. MUSCULOSKELETAL: Extremities without clubbing, cyanosis, or edema. No calf tenderness. Has scars in both feet from previous surgery NEUROLOGICAL: Awake, and focusing. Has spasticity of both UE. NO facial symmetry, tongue in midline. PSYCH: Restless LINE: PIV with no evidence of infection : Valles in place, urine looks clear Assessment & Plan Remarks IMPRESSION Recurrent fever, etiology? possibly with new sepsis - temps better UTI, has valles in place Hx CVA, neurogenic bladder Encephalopathy, due to sepsis KUB full of stool, and cecum dilated RECOMMENDATION Continue Flagyl Continue Cipro Continue Cefepime Follow C/S GI evaluation Monitor progress Monitor Maricel Loyola MD Nov 20, 2016 14:42 I will check patient again Sunday Maricel Klein MD Nov 20, 2016 14:42
--- NOTE | 2016-11-20 15:32 | RADRPT ---
EXAM DATE/TIME: 11/20/2016 14:26 [facility] COMPARISON: ABDOMEN KUB ONLY, November 19, 2016, 16:25. INDICATIONS : NG tube placement. MEDICAL HISTORY : Parkinson's. Hypercholesterolemia. Neurogenic bladder. CVA. Afib. COPD. Asthma. SURGICAL HISTORY : Cholecystectomy. Appendectomy. Spinal cord stimulator. ENCOUNTER: Initial ACUITY: 1 day PAIN SCORE: Non-responsive. LOCATION: Left abdomen FINDINGS: The exam demonstrates a nasogastric tube. The tip of the tube overlies the stomach. The exam demonstrates mild gaseous distention of the cecum with stool diffusely throughout the colon suggesting constipation. No free air seen. CONCLUSION: 1. NG tube in satisfactory position. 2. Stool diffusely throughout the colon with distention of the cecum suggesting constipation. Leon Gates MD on November 20, 2016 at 15:28 Board Certified Radiologist. This report was verified electronically.
[2016-11-20] MEDS ORDERED: IOHEXOL 350 MG/ML 10 ML VIAL (for RAD DIAG) IV ONE (17:07)
--- NOTE | 2016-11-20 19:32 | HHI.PR ---
Subjective Remarks YO AA male with COPD,Fever, sob HR high on cardiazem drip Mild sob and wheezing Breathing better today UC Citrobactor and pseudomonas Still has low grade Fever had CT abd, results pending. Objective Vital Signs Vital Signs Date Time Temp Pulse Resp B/P Pulse Ox O2 Delivery O2 Flow Rate FiO2 11/20/16 16:00 100.3 97 11 139/81 97 11/20/16 12:00 99.0 98 11 140/85 98 11/20/16 08:00 100.6 100 12 139/84 94 11/20/16 04:56 100.5 99 2 142/91 97 11/20/16 00:00 98.9 73 20 147/85 97 11/19/16 20:00 98.4 89 20 150/87 97 11/19/16 20:00 Nasal Cannula 3.00 50 I/O 11/19/16 11/19/16 11/19/16 11/20/16 11/20/16 11/20/16 07:00 15:00 23:00 07:00 15:00 23:00 Intake Total 0 ml 30 ml 10 ml 0 ml Output Total 550 ml 1600 ml 1000 ml 1400 ml 1750 ml Balance -550 ml -1600 ml -970 ml -1390 ml -1750 ml Intake Oral 0 ml 30 ml 10 ml 0 ml Output Urine Total 550 ml 1600 ml 1000 ml 1400 ml 1750 ml # Bowel Movements 1 0 0 0 1 Result Diagram: 11/20/16 0702 11/20/16 07 Objective Remarks GENERAL: MBMN Male mild sob SKIN: Warm and dry. HEAD: Normocephalic. EYES: No scleral icterus. No injection or drainage. NECK: Supple, trachea midline. No JVD or lymphadenopathy. CARDIOVASCULAR: Regular rate and rhythm without murmurs, gallops, or rubs. RESPIRATORY: Breath sounds equal bilaterally. No accessory muscle use. GASTROINTESTINAL: Abdomen soft, non-tender, nondistended. MUSCULOSKELETAL: No cyanosis, or edema. BACK: Nontender without obvious deformity. No CVA tenderness. A/P Assessment and Plan COPD exac UTI Sepsis Techycardia CVA Indwelling Mazariegos PLAN: IV Solumedrol Aerosol nebs Cardiazem for HR controll. Abx per ID Check CT abd CardiDarrick Dsouza MD Nov 20, 2016 19:32
--- NOTE | 2016-11-20 19:55 | RADRPT ---
EXAM DATE/TIME: 11/20/2016 16:54 [facility] COMPARISON: CT ABDOMEN & PELVIS W/O CONTRAST, August 16, 2016, 5:39. INDICATIONS : Abdominal distention. IV CONTRAST: 100 cc Omnipaque 350 (iohexol) IV ORAL CONTRAST: Prescribed oral contrast ingested. RADIATION DOSE: 10.53 CTDIvol (mGy) MEDICAL HISTORY : Cardiovascular disease. Parkinsons. SURGICAL HISTORY : Cholecystectomy. Appendectomy. ENCOUNTER: Initial ACUITY: 4 - 6 days PAIN SCALE: Non-responsive LOCATION: abdomen TECHNIQUE: Volumetric scanning of the abdomen and pelvis was performed. Using automated exposure control and ad justment of the mA and/or kV according to patient size, radiation dose was kept as low as reasonably achievable to obtain optimal diagnostic quality images. FINDINGS: There is linear atelectasis and scarring at the lung bases. Distal esophagus is distended. NG tube is in the stomach. There is a small left effusion with basilar atelectasis. Liver has a lobulated appearance most characteristic of cirrhosis. Spleen, adrenals and left kidney w ithin normal limits. Right-sided renal cysts stable since July 2016. Since the prior exam cecum has become distended to a diameter of about 11 cm. There is contrast withi n the cecum. Air and stool present throughout the remainder of the large bowel. There is colonic dive rticulosis. Mazariegos catheter is present in decompressed bladder. Spinal stimulator wires present extend ing into the right sacral region. CONCLUSION: 1. Distention of cecum to about 11 cm with oral contrast within the cecum. There is air and stool thr oughout the large bowel with moderate constipation. Patient at risk for cecal volvulus. 2. Dependent atelectasis at the lung bases with small left pleural effusion. Mild ascites around the liver. Probable liver cirrhosis. 3. Distended distal esophagus with NG tube in stomach. Mazariegos catheter in bladder. Earl Santoro MD on November 20, 2016 at 19:43 Board Certified Radiologist. This report was verified electronically.
[2016-11-20] MEDS: TAMSULOSIN HCL 0.4 MG CAP PO SCH (22:05)
[2016-11-20] MEDS ORDERED: METHYLNALTREXONE BROMIDE 12 MG/0.6 ML VIAL SQ ONE (22:45)
[2016-11-20] MEDS ORDERED: BISACODYL 10 MG SUPP RECTAL ONE (22:45)
[2016-11-21] VITALS (10 sets, daily range): BP systolic 123–141; BP diastolic 69–85; PULSE 84–111; RESP 17–20; TEMP 96.7–99.2; O2SAT 95–99
[2016-11-21] MEDS: CEFEPIME INJ 2,000 MG in SODIUM CHLORIDE 0.9% INJ 100 ML IV SCH (04:02)
[2016-11-21] MEDS: CARBIDOPA/LEVODOPA 25 MG/100 MG TAB PO SCH ×3 (06:48→22:00)
[2016-11-21] MEDS: LEVOTHYROXINE SODIUM 150 MCG TAB PO SCH (06:48)
[2016-11-21] MEDS: DILTIAZEM-CD 180 MG CAP ER PO SCH (09:00)
[2016-11-21] MEDS: FLUoxetine HCL 20 MG CAP PO SCH (09:00)
[2016-11-21] MEDS: DULoxetine HCl DR 20 MG CAP PO SCH ×2 (09:00→21:00)
[2016-11-21] MEDS: metroNIDAZOLE 500 MG INJ 100 ML IV SCH (09:31)
[2016-11-21] MEDS: methylPREDNISolone SOD SUCC 40 MG/1 ML VIAL IV PUSH SCH (09:31)
[2016-11-21] MEDS: SODIUM CHLORIDE 0.9% FLUSH 5 ML FLUSH FLUSH SCH ×2 (09:32→21:00)
[2016-11-21] MEDS: BUDESONIDE-FORMOTEROL 160/4.5 MCG INHALER INH SCH ×2 (09:35→21:00)
[2016-11-21] MEDS: FLUTICASONE 100 MCG/VILANTEROL 25 MCG INHALER INH SCH (09:35)
[2016-11-21] MEDS: prednisoLONE ACETATE 1% OPHT SUSP 5 ML BTL RIGHT EYE SCH (09:36)
--- NOTE | 2016-11-21 11:23 | HHI.PR ---
Subjective Remarks YO AA male with COPD,Fever, sob HR high on cardiazem drip Mild sob and wheezing Breathing better today UC Citrobactor and pseudomonas Going for colonoscopy Objective Vital Signs Vital Signs Date Time Temp Pulse Resp B/P Pulse Ox O2 Delivery O2 Flow Rate FiO2 11/21/16 10:42 95 Nasal Cannula 3.00 11/21/16 08:15 98 11/21/16 08:00 98.5 100 20 123/69 96 11/21/16 04:00 99.2 84 18 124/70 96 11/21/16 04:00 111 11/21/16 00:55 97 Nasal Cannula 3.00 11/21/16 00:00 96.7 99 18 141/85 99 11/21/16 00:00 103 11/20/16 22:02 93 11/20/16 22:00 Nasal Cannula 3.00 11/20/16 20:00 99.1 99 18 134/84 98 11/20/16 16:00 100.3 97 11 139/81 97 11/20/16 12:00 99.0 98 11 140/85 98 I/O 11/20/16 11/20/16 11/20/16 11/21/16 11/21/16 11/21/16 07:00 15:00 23:00 07:00 15:00 23:00 Intake Total 10 ml 0 ml 0 ml 0 ml Output Total 1400 ml 1750 ml 550 ml 500 ml Balance -1390 ml -1750 ml -550 ml -500 ml Intake Oral 10 ml 0 ml 0 ml 0 ml Output Urine Total 1400 ml 1750 ml 550 ml 500 ml # Bowel Movements 0 1 0 Result Diagram: 11/20/1670111/20/16701 Objective Remarks GENERAL: MBMN Male mild sob SKIN: Warm and dry. HEAD: Normocephalic. EYES: No scleral icterus. No injection or drainage. NECK: Supple, trachea midline. No JVD or lymphadenopathy. CARDIOVASCULAR: Regular rate and rhythm without murmurs, gallops, or rubs. RESPIRATORY: Breath sounds equal bilaterally. No accessory muscle use. GASTROINTESTINAL: Abdomen soft, non-tender, nondistended. MUSCULOSKELETAL: No cyanosis, or edema. BACK: Nontender without obvious deformity. No CVA tenderness. A/P Assessment and Plan COPD exac UTI Sepsis Techycardia CVA Indwelling Mazariegos PLAN: IV Solumedrol Aerosol nebs Cardiazem for HR controll. Abx per ID Cardiazem drip Colonoscopy today. Darrick Roberson MD Nov 21, 2016 11:23
--- NOTE | 2016-11-21 12:32 | HHI.IDPN ---
Subjective Subjective Remarks Notes reviewed Still with fevers Seen by GI Colonoscopy planned. CT A/P noted Valles cath changed 11/16 Renal US - L kidney ok, R kidney not visualized KUB - full of stool and cecum 13.3 cm Mental status same - awake, following and not verbal Repeat AXR 11/19 same dilated cecum Antibiotics Cefepime Cipro Flagyl Lines PIV Past Medical History COPD / bronchial asthma. History of atrial fibrillation CVA with weakness. Hypothyroidism. BPH. Peripheral arterial disease Parkinson's disease. Neurogenic bladder with chronic indwelling Valles catheter Chronic back pain post back pain stimulator Arthritis. Past Surgical History History of appendectomy. Cholecystectomy. Bilateral foot surgery. Multiple tooth extractions Allergies: Coded Allergies: MRI PRECAUTION (Verified Allergy, Severe, PT HAS INTERNAL STIMULATOR (ME) , 11/12/16) Vancomycin (Verified Allergy, Mild, Rash, 11/13/16) developed hives, pruritus *MDRO Multi-Drug Resistant Organism (Verified Adverse Reaction, Unknown, ) MRSA PCR Screen positive 09/29/15. Objective . Vital Signs Date Time Temp Pulse Resp B/P Pulse Ox O2 Delivery O2 Flow Rate FiO2 11/21/16 12:00 98.3 95 20 129/73 96 11/21/16 10:42 95 Nasal Cannula 3.00 11/21/16 08:15 98 11/21/16 08:00 98.5 100 20 123/69 96 11/21/16 04:00 99.2 84 18 124/70 96 11/21/16 04:00 111 11/21/16 00:55 97 Nasal Cannula 3.00 11/21/16 00:00 96.7 99 18 141/85 99 11/21/16 00:00 103 11/20/16 22:02 93 11/20/16 22:00 Nasal Cannula 3.00 11/20/16 20:00 99.1 99 18 134/84 98 11/20/16 16:00 100.3 97 11 139/81 97 11/20/16 11/20/16 11/21/16 15:00 23:00 07:00 Intake Total 0 ml 0 ml 0 ml Output Total 1750 ml 550 ml 500 ml Balance -1750 ml -550 ml -500 ml Intake Oral 0 ml 0 ml 0 ml Output Urine Total 1750 ml 550 ml 500 ml # Bowel Movements 1 0 . Laboratory Tests Test 11/20/16 07:02 White Blood Count 13.6 TH/MM3 Red Blood Count 5.02 MIL/MM3 Hemoglobin 13.5 GM/DL Hematocrit 42.2 % Mean Corpuscular Volume 84.2 FL Mean Corpuscular Hemoglobin 26.8 PG Mean Corpuscular Hemoglobin 31.9 % Concent Red Cell Distribution Width 16.9 % Platelet Count 126 TH/MM3 Mean Platelet Volume 8.0 FL Laboratory Tests Test 11/20/16 07:02 Sodium Level 147 MEQ/L Potassium Level 4.0 MEQ/L Chloride Level 109 MEQ/L Carbon Dioxide Level 33.6 MEQ/L Anion Gap 4 MEQ/L Blood Urea Nitrogen 18 MG/DL Creatinine 0.51 MG/DL Estimat Glomerular Filtration 193 ML/MIN Rate Random Glucose 142 MG/DL Calcium Level 8.2 MG/DL Imaging Abdomen/Pelvis CT 11/20/16 0000 Signed Impressions: Service Date/Time: Sunday, November 20, 2016 16:54 - CONCLUSION: 1. Distention of cecum to about 11 cm with oral contrast within the cecum. There is air and stool throughout the large bowel with moderate constipation. Patient at risk for cecal volvulus. 2. Dependent atelectasis at the lung bases with small left pleural effusion. Mild ascites around the liver. Probable liver cirrhosis. 3. Distended distal esophagus with NG tube in stomach. Valles catheter in bladder. Earl Santoro MD Abdomen X-Ray 11/20/16 0000 Signed Impressions: Service Date/Time: Sunday, November 20, 2016 14:26 - CONCLUSION: 1. NG tube in satisfactory position. 2. Stool diffusely throughout the colon with distention of the cecum suggesting constipation. Leon Gates MD Abdomen X-Ray 11/19/16 0000 Signed Impressions: Service Date/Time: Saturday, November 19, 2016 16:25 - CONCLUSION: Persistent dilatation of the cecum. Arnoldo Motley MD Renal Ultrasound 11/16/16 0000 Signed Impressions: Service Date/Time: October 16:50 - CONCLUSION: Study is limited. The right kidney is not seen clearly. The left kidney is without an acute abnormality. Valles in the bladder. Arnoldo Coombs MD Chest X-Ray 11/16/16 0000 Signed Impressions: Service Date/Time: October 13:46 - CONCLUSION: Persistent hypoinflation with improving bibasilar atelectatic changes. Joni Young MD Chest CT 11/12/16 0000 Signed Impressions: Service Date/Time: Saturday, November 12, 2016 16:38 - CONCLUSION: Mild emphysematous changes. I do not see any consolidative changes. David Gates MD FACR Abdomen X-Ray 11/19/16 0000 Signed Impressions: Service Date/Time: Saturday, November 19, 2016 16:25 - CONCLUSION: Persistent dilatation of the cecum. Arnoldo Motley MD Renal Ultrasound 11/16/16 0000 Signed Impressions: Service Date/Time: October 16:50 - CONCLUSION: Study is limited. The right kidney is not seen clearly. The left kidney is without an acute abnormality. Valles in the bladder. Arnoldo Coombs MD Chest X-Ray 11/16/16 0000 Signed Impressions: Service Date/Time: October 13:46 - CONCLUSION: Persistent hypoinflation with improving bibasilar atelectatic changes. Joni Young MD Abdomen X-Ray 11/16/16 0000 Signed Impressions: Service Date/Time: October 17:27 - CONCLUSION: Colonic distention with a large amount of stool and air. Ileus/nonmechanical obstruction thought most likely. Arnoldo Coombs MD Chest CT 11/12/16 0000 Signed Impressions: Service Date/Time: Saturday, November 12, 2016 16:38 - CONCLUSION: Mild emphysematous changes. I do not see any consolidative changes. David Gates MD FACR Physical Exam GENERAL: he is awake, he is focusing , nonverbal. Not in distress SKIN: Warm and dry, no rash noted, no embolic lesions. HEENT: [place] conjunctivae, no petechia or hemorrhage. No scleral icterus. Has white coating on his tongue. NECK: Trachea midline. No JVD or lymphadenopathy. Neck rigid, but no tenderness. CARDIOVASCULAR: Regular rate and rhythm without murmurs, gallops, or rubs. RESPIRATORY: Clear to auscultation. Breath sounds equal bilaterally. No wheezes , rales, or rhonchi. Decreased breath sounds at the bases. GASTROINTESTINAL: Abdomen distended, with diffuse abdominal tenderness. Bowel sounds are hypoactive. He has some ecchymosis on his abdominal wall from subcutaneous injections. MUSCULOSKELETAL: Extremities without clubbing, cyanosis, or edema. No calf tenderness. Has scars in both feet from previous surgery NEUROLOGICAL: Awake, and focusing. Has spasticity of both UE. PSYCH: Restless LINE: PIV with no evidence of infection : Valles in place, urine looks clear Assessment & Plan Remarks IMPRESSION Recurrent fever, etiology? possibly with new sepsis - ?GI source UTI, has valles in place - repeat UA negative Hx CVA, neurogenic bladder Encephalopathy, due to sepsis KUB full of stool, and cecum dilated RECOMMENDATION Change to Zosyn Add Diflucan GI evaluation Monitor progress Monitor temps Follow C/S Maricel Klein MD Nov 21, 2016 12:32
[2016-11-21] MEDS: DILTIAZEM 125 MG/NS 100 ML IV SCH ×2 (12:39)
--- NOTE | 2016-11-21 13:37 | HHI.PR ---
Subjective Subjective Remarks pt. not following commands eye open, not tracking, not talking not following commands abd. less distended, has NGT to LIS febrile yest. max 100.3, none today going for decompressive colonoscopy today remains on Cardizem gtt Review of Systems Constitutional Constitutional Remarks 12 point ROS unable to complete Vitals/Results Intake & Output 11/20/16 11/20/16 11/21/16 15:00 23:00 07:00 Intake Total 0 ml 0 ml 0 ml Output Total 1750 ml 550 ml 500 ml Balance -1750 ml -550 ml -500 ml Intake Oral 0 ml 0 ml 0 ml Output Urine Total 1750 ml 550 ml 500 ml # Bowel Movements 1 0 Vital Signs Vital Signs Date Time Temp Pulse Resp B/P Pulse Ox O2 Delivery O2 Flow Rate FiO2 11/21/16 12:00 98.3 95 20 129/73 96 11/21/16 10:42 95 Nasal Cannula 3.00 11/21/16 08:15 98 11/21/16 08:00 98.5 100 20 123/69 96 11/21/16 04:00 99.2 84 18 124/70 96 11/21/16 04:00 111 11/21/16 00:55 97 Nasal Cannula 3.00 11/21/16 00:00 96.7 99 18 141/85 99 11/21/16 00:00 103 11/20/16 22:02 93 11/20/16 22:00 Nasal Cannula 3.00 11/20/16 20:00 99.1 99 18 134/84 98 11/20/16 16:00 100.3 97 11 139/81 97 CBC/BMP: 11/20/16 0702 11/20/16 0702 Physical Exam General General Appearance: No Acute Distress, Malnourished Eyes Eye Exam: Pupils Equal, Sclera White Ears & Nose Ears & Nose Exam: Nasal Mucosa [place] Throat Throat Exam: Oral Mucosa [place] & Moist Neck Neck Exam: Neck Supple, Trachea Midline Pulmonary Resp Exam: No Distress Resp Remarks diffuse exp. wheeze Cardiology CV Exam: Irregular, Tachycardia Gastrointestinal/Abdomen GI Exam: Soft, Non-Tender, Bowel Sounds Present, Distended GI Remarks NGT to LIS Genitourinary Remarks REY Musculoskeletal MS Exam: Atrophy MS Remarks contractures hands, wrists Integumentary Skin Exam: Clear, Warm Extremeties Extremities Exam: Pedal Pulses Palpable, Trace Edema Neurologic Neuro Exam: Awake Psychiatric Psych Exam: Appropriate Responses VTE Prophylaxis VTE Prophylaxis Device: SCDs VTE Prophylaxis Meds: Heparin PUD Prophylasis PUD Prophylaxis: Protonix Assessment/Plan Problem List: (1) Sepsis (2) COPD exacerbation (3) Chronic indwelling Rey catheter (4) UTI (urinary tract infection) (5) Peripheral neuropathy (6) Hypertension (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 results noted, distension of cecum to about 11 cm, air and stool through lg bowel, risk for cecal volvulus, prob. liver cirrhosis 1 BM reported overnight going for colonoscopy today Continue with IVF D51/2 NS Monitor sodium level. ST, continue IV Cardizem On Eliquis Febrile yesterday, IV abx per ID follow cultures Continue Duonebs oxygen Taper steroids Pulm following Encephalopathic, not talking, more altered will check BMP, ammonia level Thrombocytopenia, -improving ? med related follow CBC Proton pump inhibitor for GI prophylaxis. Eliquis for DVT prophylaxis DNR status Condition guarded D/W RN D/W Dr. Turk D/W pt This pt. was seen by myself and Dr Turk, this note is written on his behalf Problem Qualifiers (1) Sepsis: Qualified Code: A41.9 - Sepsis, due to unspecified organism (2) UTI (urinary tract infection): Qualified Code: T83.511S - Urinary tract infection associated with indwelling urethral catheter, sequela (3) Peripheral neuropathy: Qualified Code: G62.9 - Peripheral polyneuropathy (4) Hypertension: Qualified Code: I10 - Essential hypertension (5) BPH (benign prostatic hyperplasia): Qualified Code: N40.0 - Benign prostatic hyperplasia, presence of lower urinary tract symptoms unspecified, unspecified morphology (6) GERD (gastroesophageal reflux disease): Qualified Code: K21.9 - Gastroesophageal reflux disease without esophagitis (7) Hyperlipidemia: Qualified Code: E78.5 - Hyperlipidemia, unspecified hyperlipidemia type Mar Malloy Nov 21, 2016 13:37
[2016-11-21] MEDS ORDERED: PROPOFOL 200 MG/20 ML AMP IV ONE (14:42)
[2016-11-21] MEDS: DEXT 5%-NACL 0.45% 1000 ML INJ 1,000 ML IV SCH (17:00)
[2016-11-21] MEDS: fentaNYL 75 MCG/HR PATCH T-DERMAL SCH (17:05)
[2016-11-21] MEDS: PIPERACIL-TAZO 4.5 GM PREMIX 100 ML IV SCH ×2 (17:11→21:00)
[2016-11-21] MEDS: PANTOPRAZOLE SOD 40 MG DELAYED RELEASE TAB PO SCH (17:14)
[2016-11-21] MEDS: LACTULOSE SYRUP 20 GM/30 ML CUP PO SCH ×2 (17:14→21:00)
[2016-11-21] MEDS: FINASTERIDE 5 MG TAB PO SCH (17:15)
[2016-11-21] MEDS: TOLTERODINE TARTRATE 4 MG CAP LA PO SCH (17:15)
[2016-11-21] MEDS: FUROSEMIDE 20 MG TAB PO SCH (17:19)
[2016-11-21] MEDS: FLUCONAZOLE 400 MG PREMIX BAG 200 ML IV SCH (17:30)
[2016-11-21] MEDS: TAMSULOSIN HCL 0.4 MG CAP PO SCH (21:00)
[2016-11-22] VITALS (9 sets, daily range): BP systolic 130–143; BP diastolic 74–91; PULSE 91–107; RESP 17–22; TEMP 98–98.9; O2SAT 95–98
[2016-11-22 00:41] LABS: BICARBONATE 35.2 MEQ/L (21.0-32.0); POTASSIUM 4.3 MEQ/L (3.5-5.1)
[2016-11-22] MEDS: PIPERACIL-TAZO 4.5 GM PREMIX 100 ML IV SCH ×4 (03:58→22:15)
[2016-11-22] MEDS: DEXT 5%-NACL 0.45% 1000 ML INJ 1,000 ML IV SCH ×2 (03:59→13:29)
[2016-11-22] MEDS: CARBIDOPA/LEVODOPA 25 MG/100 MG TAB PO SCH ×3 (06:01→22:24)
[2016-11-22] MEDS: LEVOTHYROXINE SODIUM 150 MCG TAB PO SCH (06:01)
[2016-11-22 08:14] LABS: HEMATOCRIT 40.8 % (39.0-51.0); MEAN CELL VOLUME 82.6 FL (80.0-100.0); MEAN CORPUSCULAR HEMOGLOBIN 27.1 PG (27.0-34.0); MEAN CORPUSCULAR HGB CONC 32.8 % (32.0-36.0); PLATELET COUNT 106 TH/MM3 (150-450); RED BLOOD COUNT 4.94 MIL/MM3 (4.50-5.90); RED CELL DISTRIBUTION WIDTH 16.4 % (11.6-17.2); REVIEW FLAG FINAL; WHITE BLOOD COUNT 10.1 TH/MM3 (4.0-11.0)
[2016-11-22 08:36] LABS: BICARBONATE 35.4 MEQ/L (21.0-32.0); POTASSIUM 4.1 MEQ/L (3.5-5.1)
[2016-11-22] MEDS: DILTIAZEM-CD 180 MG CAP ER PO SCH (09:00)
[2016-11-22] MEDS: FINASTERIDE 5 MG TAB PO SCH (09:00)
[2016-11-22] MEDS: DULoxetine HCl DR 20 MG CAP PO SCH ×2 (09:00→22:24)
[2016-11-22] MEDS: TOLTERODINE TARTRATE 4 MG CAP LA PO SCH (09:00)
[2016-11-22] MEDS: PANTOPRAZOLE SOD 40 MG DELAYED RELEASE TAB PO SCH (09:00)
[2016-11-22] MEDS: FLUTICASONE 100 MCG/VILANTEROL 25 MCG INHALER INH SCH (09:00)
[2016-11-22] MEDS: BUDESONIDE-FORMOTEROL 160/4.5 MCG INHALER INH SCH ×2 (09:00→22:15)
[2016-11-22] MEDS: FLUoxetine HCL 20 MG CAP PO SCH (10:04)
[2016-11-22] MEDS: FUROSEMIDE 20 MG TAB PO SCH (10:04)
[2016-11-22] MEDS: LACTULOSE SYRUP 20 GM/30 ML CUP PO SCH ×4 (10:05→22:24)
[2016-11-22] MEDS: methylPREDNISolone SOD SUCC 40 MG/1 ML VIAL IV PUSH SCH (10:06)
[2016-11-22] MEDS: SODIUM CHLORIDE 0.9% FLUSH 5 ML FLUSH FLUSH SCH ×2 (10:07→22:17)
--- NOTE | 2016-11-22 13:08 | HHI.IDPN ---
Subjective Subjective Remarks Notes reviewed Temps better GI did colonoscopy and fecal disemapction yesterday Valles cath changed 11/16 Renal US - L kidney ok, R kidney not visualized KUB - full of stool and cecum 13.3 cm Mental status same - awake, following and not verbal LAst AXR 11/19 same dilated cecum Antibiotics Zosyn Diflucan Lines PIV Past Medical History COPD / bronchial asthma. History of atrial fibrillation CVA with weakness. Hypothyroidism. BPH. Peripheral arterial disease Parkinson's disease. Neurogenic bladder with chronic indwelling Valles catheter Chronic back pain post back pain stimulator Arthritis. Past Surgical History History of appendectomy. Cholecystectomy. Bilateral foot surgery. Multiple tooth extractions Allergies: Coded Allergies: MRI PRECAUTION (Verified Allergy, Severe, PT HAS INTERNAL STIMULATOR (ME) , 11/12/16) Vancomycin (Verified Allergy, Mild, Rash, 11/13/16) developed hives, pruritus *MDRO Multi-Drug Resistant Organism (Verified Adverse Reaction, Unknown, ) MRSA PCR Screen positive 09/29/15. Objective . Vital Signs Date Time Temp Pulse Resp B/P Pulse Ox O2 Delivery O2 Flow Rate FiO2 11/22/16 04:00 97 11/22/16 04:00 98.0 91 17 132/81 98 11/22/16 00:00 91 11/22/16 00:00 98.0 95 18 143/88 95 11/21/16 21:00 Nasal Cannula 3.00 11/21/16 20:00 98.0 95 17 137/80 95 11/21/16 20:00 93 11/21/16 16:00 98.0 91 20 126/71 98 11/21/16 15:40 Nasal Cannula 3 11/21/16 15:13 92 14 133/79 100 11/21/16 15:08 92 14 134/78 100 11/21/16 15:03 98.6 96 14 134/80 100 11/21/16 14:26 98.3 95 20 129/73 96 11/21/16 11/21/16 11/22/16 15:00 23:00 07:00 Intake Total 100 ml 0 ml Output Total 800 ml 600 ml 750 ml Balance -800 ml -500 ml -750 ml Intake Oral 0 ml 0 ml IV Total 100 ml Output Urine Total 800 ml 600 ml 750 ml # Bowel Movements 2 0 0 . Laboratory Tests Test 11/22/16 07:25 White Blood Count 10.1 TH/MM3 Red Blood Count 4.94 MIL/MM3 Hemoglobin 13.4 GM/DL Hematocrit 40.8 % Mean Corpuscular Volume 82.6 FL Mean Corpuscular Hemoglobin 27.1 PG Mean Corpuscular Hemoglobin 32.8 % Concent Red Cell Distribution Width 16.4 % Platelet Count 106 TH/MM3 Mean Platelet Volume 8.1 FL Laboratory Tests Test 11/22/16 11/22/16 00:03 07:25 Sodium Level 138 MEQ/L 138 MEQ/L Potassium Level 4.3 MEQ/L 4.1 MEQ/L Chloride Level 97 MEQ/L 96 MEQ/L Carbon Dioxide Level 35.2 MEQ/L 35.4 MEQ/L Anion Gap 6 MEQ/L 7 MEQ/L Blood Urea Nitrogen 14 MG/DL 11 MG/DL Creatinine 0.47 MG/DL 0.48 MG/DL Estimat Glomerular Filtration 212 ML/MIN 207 ML/MIN Rate Random Glucose 135 MG/DL 135 MG/DL Calcium Level 7.8 MG/DL 7.9 MG/DL Ammonia 15 MCMOL/L Imaging Abdomen/Pelvis CT 11/20/16 0000 Signed Impressions: Service Date/Time: Sunday, November 20, 2016 16:54 - CONCLUSION: 1. Distention of cecum to about 11 cm with oral contrast within the cecum. There is air and stool throughout the large bowel with moderate constipation. Patient at risk for cecal volvulus. 2. Dependent atelectasis at the lung bases with small left pleural effusion. Mild ascites around the liver. Probable liver cirrhosis. 3. Distended distal esophagus with NG tube in stomach. Valles catheter in bladder. Earl Santoro MD Abdomen X-Ray 11/20/16 0000 Signed Impressions: Service Date/Time: Sunday, November 20, 2016 14:26 - CONCLUSION: 1. NG tube in satisfactory position. 2. Stool diffusely throughout the colon with distention of the cecum suggesting constipation. Leon Gates MD Abdomen X-Ray 11/19/16 0000 Signed Impressions: Service Date/Time: Saturday, November 19, 2016 16:25 - CONCLUSION: Persistent dilatation of the cecum. Arnoldo Motley MD Renal Ultrasound 11/16/16 0000 Signed Impressions: Service Date/Time: October 16:50 - CONCLUSION: Study is limited. The right kidney is not seen clearly. The left kidney is without an acute abnormality. Valles in the bladder. Arnoldo Coombs MD Chest X-Ray 11/16/16 0000 Signed Impressions: Service Date/Time: October 13:46 - CONCLUSION: Persistent hypoinflation with improving bibasilar atelectatic changes. Joni Young MD Chest CT 11/12/16 0000 Signed Impressions: Service Date/Time: Saturday, November 12, 2016 16:38 - CONCLUSION: Mild emphysematous changes. I do not see any consolidative changes. David Gates MD FACR Abdomen X-Ray 11/19/16 0000 Signed Impressions: Service Date/Time: Saturday, November 19, 2016 16:25 - CONCLUSION: Persistent dilatation of the cecum. Arnoldo Motley MD Renal Ultrasound 11/16/16 0000 Signed Impressions: Service Date/Time: October 16:50 - CONCLUSION: Study is limited. The right kidney is not seen clearly. The left kidney is without an acute abnormality. Valles in the bladder. Arnoldo Coombs MD Chest X-Ray 11/16/16 0000 Signed Impressions: Service Date/Time: October 13:46 - CONCLUSION: Persistent hypoinflation with improving bibasilar atelectatic changes. Joni Young MD Abdomen X-Ray 11/16/16 0000 Signed Impressions: Service Date/Time: October 17:27 - CONCLUSION: Colonic distention with a large amount of stool and air. Ileus/nonmechanical obstruction thought most likely. Arnoldo Coombs MD Chest CT 11/12/16 0000 Signed Impressions: Service Date/Time: Saturday, November 12, 2016 16:38 - CONCLUSION: Mild emphysematous changes. I do not see any consolidative changes. David Gates MD FACR Physical Exam GENERAL: he is awake, focusing , nonverbal. Not in distress SKIN: Warm and dry, no rash noted, no embolic lesions. HEENT: [place] conjunctivae, no petechia or hemorrhage. No scleral icterus. Has white coating on his tongue. NECK: Trachea midline. No JVD or lymphadenopathy. Neck rigid, but no tenderness. CARDIOVASCULAR: Regular rate and rhythm without murmurs, gallops, or rubs. RESPIRATORY: Clear to auscultation. Breath sounds equal bilaterally. No wheezes , rales, or rhonchi. Decreased breath sounds at the bases. GASTROINTESTINAL: Abdomen less distended, with some tenderness. Bowel sounds are hypoactive. MUSCULOSKELETAL: Extremities without clubbing, cyanosis, or edema. No calf tenderness. Has scars in both feet from previous surgery NEUROLOGICAL: Awake, and focusing. Has spasticity of both UE. PSYCH: Restless LINE: PIV with no evidence of infection : Valles in place, urine looks clear Assessment & Plan Remarks IMPRESSION Recurrent fever, etiology? possibly with new sepsis - temps better UTI, has valles in place Hx CVA, neurogenic bladder Encephalopathy, due to sepsis KUB full of stool, and cecum dilated RECOMMENDATION Continue Flagyl Continue Zosyn Monitor progress Monitor Maricel Loyola MD Nov 22, 2016 13:08
[2016-11-22] MEDS: FLUCONAZOLE 400 MG PREMIX BAG 200 ML IV SCH (13:28)
[2016-11-22] MEDS: prednisoLONE ACETATE 1% OPHT SUSP 5 ML BTL RIGHT EYE SCH (13:30)
--- NOTE | 2016-11-22 14:24 | HHI.GIFU ---
Subjective Remarks Resting in bed. Very lethargic, nonverbal. Not eating per nursing. (Annamaria Clayton) Objective Vitals I&O Vital Signs Date Time Temp Pulse Resp B/P Pulse Ox O2 Delivery O2 Flow Rate FiO2 11/22/16 11:30 96 Nasal Cannula 2.00 11/22/16 04:00 97 11/22/16 04:00 98.0 91 17 132/81 98 11/22/16 00:00 91 11/22/16 00:00 98.0 95 18 143/88 95 11/21/16 21:00 Nasal Cannula 3.00 11/21/16 20:00 98.0 95 17 137/80 95 11/21/16 20:00 93 11/21/16 16:00 98.0 91 20 126/71 98 11/21/16 15:40 Nasal Cannula 3 11/21/16 15:13 92 14 133/79 100 11/21/16 15:08 92 14 134/78 100 11/21/16 15:03 98.6 96 14 134/80 100 11/21/16 14:26 98.3 95 20 129/73 96 I/O 11/21/16 11/21/16 11/21/16 11/22/16 11/22/16 11/22/16 07:00 15:00 23:00 07:00 15:00 23:00 Intake Total 0 ml 100 ml 0 ml 1582 ml Output Total 500 ml 800 ml 600 ml 750 ml Balance -500 ml -800 ml -500 ml -750 ml 1582 ml Intake Oral 0 ml 0 ml 0 ml IV Total 100 ml 1582 ml Output Urine Total 500 ml 800 ml 600 ml 750 ml # Bowel Movements 2 0 0 Laboratory Laboratory Tests Test 11/22/16 11/22/16 00:03 07:25 Sodium Level 138 138 Potassium Level 4.3 4.1 Chloride Level 97 96 Carbon Dioxide Level 35.2 35.4 Anion Gap 6 7 Blood Urea Nitrogen 14 11 Creatinine 0.47 0.48 Estimat Glomerular Filtration 212 207 Rate Random Glucose 135 135 Calcium Level 7.8 7.9 Ammonia 15 White Blood Count 10.1 Red Blood Count 4.94 Hemoglobin 13.4 Hematocrit 40.8 Mean Corpuscular Volume 82.6 Mean Corpuscular Hemoglobin 27.1 Mean Corpuscular Hemoglobin 32.8 Concent Red Cell Distribution Width 16.4 Platelet Count 106 Mean Platelet Volume 8.1 Imaging Last Impressions Abdomen/Pelvis CT 11/20/16 0000 Signed Impressions: Service Date/Time: Sunday, November 20, 2016 16:54 - CONCLUSION: 1. Distention of cecum to about 11 cm with oral contrast within the cecum. There is air and stool throughout the large bowel with moderate constipation. Patient at risk for cecal volvulus. 2. Dependent atelectasis at the lung bases with small left pleural effusion. Mild ascites around the liver. Probable liver cirrhosis. 3. Distended distal esophagus with NG tube in stomach. Mazariegos catheter in bladder. Earl Santoro MD Abdomen X-Ray 11/20/16 0000 Signed Impressions: Service Date/Time: Sunday, November 20, 2016 14:26 - CONCLUSION: 1. NG tube in satisfactory position. 2. Stool diffusely throughout the colon with distention of the cecum suggesting constipation. Leon Gates MD Renal Ultrasound 11/16/16 0000 Signed Impressions: Service Date/Time: October 16:50 - CONCLUSION: Study is limited. The right kidney is not seen clearly. The left kidney is without an acute abnormality. Mazariegos in the bladder. Arnoldo Coombs MD Chest X-Ray 11/16/16 0000 Signed Impressions: Service Date/Time: October 13:46 - CONCLUSION: Persistent hypoinflation with improving bibasilar atelectatic changes. Joni Young MD Chest CT 11/12/16 0000 Signed Impressions: Service Date/Time: Saturday, November 12, 2016 16:38 - CONCLUSION: Mild emphysematous changes. I do not see any consolidative changes. David Gates MD FACR Physical Exam HEENT: Nrmocephalic; atraumatic; no jaundice. Throat is clear. NECK: Neck is supple, no JVD, no lymphadenopathy. CHEST: Chest is clear to auscultation and percussion. CARDIAC: Regular rate and rhythm with no murmur gallop or rubs. ABDOMEN: Soft, nondistended, nontender; no hepatosplenomegaly; bowel sounds are present in all four quadrants. EXTREMITIES: No clubbing, cyanosis, or edema. SKIN: Normal; no rash; no jaundice. [employer]: No focal deficits; alert and oriented times three. ([place]aytonAnnamaria [facility]) Assessment and Plan Plan ASSESSMENT: - Ileus, Constipation. KUB (11/19/16) revealed persistent dilatation of the cecum. He was given stool softeners and half a bottle of magnesium citrate. Of note, he had a KUB on (11/16/16) and this revealed colonic distention with a large amount of stool and air, cecum measuring up to 13.3 cm. Abdomen/Pelvis CT (11/20/16)----> 1. Distention of cecum to about 11 cm with oral contrast within the cecum. There is air and stool throughout the large bowel with moderate constipation. Patient at risk for cecal volvulus. 2. Dependent atelectasis at the lung bases with small left pleural effusion. Mild ascites around the liver. Probable liver cirrhosis. 3. Distended distal esophagus with NG tube in stomach. Mazariegos catheter in bladder. S/P Colonscopy (11/21/16)---> Large amount of stool in cecum and rest of colon , aggressive washing done, hemorrhoids, ulcer in rectum, most likely stercoral ulcer, large amount of fluid placed (750cc), retroflexed views revealed small internal thrombosed hemorrhoids, external hemorrhoids. Lactulose 30mL po BID via NGT, Magnesium Citrate 1 bottle. Repeat colonoscopy 1 month. + BM. - Dysphagia. EGD (04/26/15) and this revealed gastritis, large esophageal varices , no dilatation was done. It was recommended that he have a repeat endoscopy with band ligation of his varices in 4-6 weeks. It is unclear if he had this done. Pt's niece is listed as next of kin, states she is the decision maker. She states that he quit eating prior to coming into the hospital and told her that "he was tired" and just gave up. She also states that she would want to continue aggressive measures at this time and that she "does not want to play God and make life and decisions." As far as a PEG tube if it came to that, then she would not want to make that decision and let the patient make it. Tried to explain that he is nonverbal at this time to me, but she states that he just does not want to speak to a woman and that he is quite capable of making his decisions. Pt still not eating. May need PEG tube? PLAN: - TF via NGT - Lactulose 30mL per NGT BID - S/P Magnesium citrate - KUB in am to follow up on cecal dilatation - Repeat colonoscopy in one month - ? Need for feeding tube, HCS reluctant to consent for this - Further recommendations to follow based on results of above - Pt seen and examined by Dr. Joel and myself and this note is written on his behalf (Annamaria Clayton) Physician Comments agree with above (Barbara Joel MD) Annamaria Clayton Nov 22, 2016 14:24 Barbara Joel MD Nov 22, 2016 20:08
--- NOTE | 2016-11-22 14:39 | HHI.PR ---
Subjective History of Present Illness Resting in bed/appears comfortable still refusing to eat Heart rate better controlled Off IV cardizem breathing is ok no cp Fever is down offers no other c/o Vitals/Results Intake & Output 11/21/16 11/21/16 11/22/16 15:00 23:00 07:00 Intake Total 100 ml 0 ml Output Total 800 ml 600 ml 750 ml Balance -800 ml -500 ml -750 ml Intake Oral 0 ml 0 ml IV Total 100 ml Output Urine Total 800 ml 600 ml 750 ml # Bowel Movements 2 0 0 Vital Signs Vital Signs Date Time Temp Pulse Resp B/P Pulse Ox O2 Delivery O2 Flow Rate FiO2 11/22/16 11:30 96 Nasal Cannula 2.00 11/22/16 04:00 97 11/22/16 04:00 98.0 91 17 132/81 98 11/22/16 00:00 91 11/22/16 00:00 98.0 95 18 143/88 95 11/21/16 21:00 Nasal Cannula 3.00 11/21/16 20:00 98.0 95 17 137/80 95 11/21/16 20:00 93 11/21/16 16:00 98.0 91 20 126/71 98 11/21/16 15:40 Nasal Cannula 3 11/21/16 15:13 92 14 133/79 100 11/21/16 15:08 92 14 134/78 100 11/21/16 15:03 98.6 96 14 134/80 100 CBC/BMP: 11/22/16 0725 11/22/16 0725 Lab Results Laboratory Tests Test 11/22/16 11/22/16 00:03 07:25 Sodium Level 138 MEQ/L 138 MEQ/L Potassium Level 4.3 MEQ/L 4.1 MEQ/L Chloride Level 97 MEQ/L 96 MEQ/L Carbon Dioxide Level 35.2 MEQ/L 35.4 MEQ/L Anion Gap 6 MEQ/L 7 MEQ/L Blood Urea Nitrogen 14 MG/DL 11 MG/DL Creatinine 0.47 MG/DL 0.48 MG/DL Estimat Glomerular Filtration 212 ML/MIN 207 ML/MIN Rate Random Glucose 135 MG/DL 135 MG/DL Calcium Level 7.8 MG/DL 7.9 MG/DL Ammonia 15 MCMOL/L White Blood Count 10.1 TH/MM3 Red Blood Count 4.94 MIL/MM3 Hemoglobin 13.4 GM/DL Hematocrit 40.8 % Mean Corpuscular Volume 82.6 FL Mean Corpuscular Hemoglobin 27.1 PG Mean Corpuscular Hemoglobin 32.8 % Concent Red Cell Distribution Width 16.4 % Platelet Count 106 TH/MM3 Mean Platelet Volume 8.1 FL Physical Exam General General Appearance: No Acute Distress, Malnourished Eyes Eye Exam: Pupils Equal, Sclera White Ears & Nose Ears & Nose Exam: Nasal Mucosa [place] Throat Throat Exam: Oral Mucosa [place] & Moist Neck Neck Exam: Neck Supple, Trachea Midline Pulmonary Resp Exam: No Distress Cardiology CV Exam: Irregular, Tachycardia Gastrointestinal/Abdomen GI Exam: Soft, Non-Tender, Bowel Sounds Present, Distended GI Remarks slightly distended No rigidity or rebound tenderness Musculoskeletal MS Exam: Atrophy Integumentary Skin Exam: Clear, Warm Extremeties Extremities Exam: Pedal Pulses Palpable, Trace Edema Neurologic Neuro Exam: Awake Neuro Remarks lethargic but arousable 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 Psychiatric Psych Exam: Appropriate Responses VTE Prophylaxis VTE Prophylaxis Device: SCDs VTE Prophylaxis Meds: Heparin PUD Prophylasis PUD Prophylaxis: Protonix Assessment/Plan Problem List: (1) Sepsis (2) COPD exacerbation (3) Chronic indwelling Mazariegos catheter (4) UTI (urinary tract infection) (5) Peripheral neuropathy (6) Hypertension (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 (8) Lumbar spinal stenosis (9) BPH (benign prostatic hyperplasia) (10) GERD (gastroesophageal reflux disease) (11) History of CVA (cerebrovascular accident) (12) Hyperlipidemia (13) Thrombocytopenia Assessment/Plan constipation/fecal impaction, dilated cecum stool softener ,s/p Fleet enema x 2 s/p mag citrate w modest results Status post colonic decompression, with good results/GI input appreciated start NG tube feeding continue IV fluids DC IV Cardizem Start by mouth Cardizem 60 every 6 hours Afebrile IV abx per ID cultures remain negative Continue Duonebs oxygen Taper steroids Pulm following Encephalopathic, not talking, more altered Thrombocytopenia, -improving ? med related Proton pump inhibitor for GI prophylaxis. DNR status Condition guarded We'll consult palliative care/to define goals of care Overall prognosis appears poor/hospice may be appropriate Problem Qualifiers (1) Sepsis: Qualified Code: A41.9 - Sepsis, due to unspecified organism (2) UTI (urinary tract infection): Qualified Code: T83.511S - Urinary tract infection associated with indwelling urethral catheter, sequela (3) Peripheral neuropathy: Qualified Code: G62.9 - Peripheral polyneuropathy (4) Hypertension: Qualified Code: I10 - Essential hypertension (5) BPH (benign prostatic hyperplasia): Qualified Code: N40.0 - Benign prostatic hyperplasia, presence of lower urinary tract symptoms unspecified, unspecified morphology (6) GERD (gastroesophageal reflux disease): Qualified Code: K21.9 - Gastroesophageal reflux disease without esophagitis (7) Hyperlipidemia: Qualified Code: E78.5 - Hyperlipidemia, unspecified hyperlipidemia type Mitchell Turk MD Nov 22, 2016 14:39 Qualified Code: N40.0 - Benign prostatic hyperplasia, presence of lower urinary tract symptoms unspecified, unspecified morphology (6) GERD (gastroesophageal reflux disease): Qualified Code: K21.9 - Gastroesophageal reflux disease without esophagitis (7) Hyperlipidemia: Qualified Code: E78.5 - Hyperlipidemia, unspecified hyperlipidemia type Mitchell Turk MD Nov 22, 2016 14:39 Qualified Code: I10 - Essential hypertension (5) BPH (benign prostatic hyperplasia): Qualified Code: N40.0 - Benign prostatic hyperplasia, presence of lower urinary tract symptoms unspecified, unspecified morphology (6) GERD (gastroesophageal reflux disease): Qualified Code: K21.9 - Gastroesophageal reflux disease without esophagitis (7) Hyperlipidemia: Qualified Code: E78.5 - Hyperlipidemia, unspecified hyperlipidemia type Mitchell Turk MD Nov 22, 2016 14:39
--- NOTE | 2016-11-22 15:04 | HHI.PR ---
Subjective Remarks YO AA male with COPD,Fever, sob HR high on cardiazem drip Mild sob and wheezing Breathing better today UC Citrobactor and pseudomonas EGD large oesophageal varices, dilation not done Objective Vital Signs Vital Signs Date Time Temp Pulse Resp B/P Pulse Ox O2 Delivery O2 Flow Rate FiO2 11/22/16 11:30 96 Nasal Cannula 2.00 11/22/16 04:00 97 11/22/16 04:00 98.0 91 17 132/81 98 11/22/16 00:00 91 11/22/16 00:00 98.0 95 18 143/88 95 11/21/16 21:00 Nasal Cannula 3.00 11/21/16 20:00 98.0 95 17 137/80 95 11/21/16 20:00 93 11/21/16 16:00 98.0 91 20 126/71 98 11/21/16 15:40 Nasal Cannula 3 11/21/16 15:13 92 14 133/79 100 11/21/16 15:08 92 14 134/78 100 I/O 11/21/16 11/21/16 11/21/16 11/22/16 11/22/16 11/22/16 07:00 15:00 23:00 07:00 15:00 23:00 Intake Total 0 ml 100 ml 0 ml 1582 ml Output Total 500 ml 800 ml 600 ml 750 ml Balance -500 ml -800 ml -500 ml -750 ml 1582 ml Intake Oral 0 ml 0 ml 0 ml IV Total 100 ml 1582 ml Output Urine Total 500 ml 800 ml 600 ml 750 ml # Bowel Movements 2 0 0 Result Diagram: 11/22/1672411/22/16724 Objective Remarks GENERAL: MBMN Male mild sob SKIN: Warm and dry. HEAD: Normocephalic. EYES: No scleral icterus. No injection or drainage. NECK: Supple, trachea midline. No JVD or lymphadenopathy. CARDIOVASCULAR: Regular rate and rhythm without murmurs, gallops, or rubs. RESPIRATORY: Breath sounds equal bilaterally. No accessory muscle use. GASTROINTESTINAL: Abdomen soft, non-tender, nondistended. MUSCULOSKELETAL: No cyanosis, or edema. BACK: Nontender without obvious deformity. No CVA tenderness. A/P Assessment and Plan COPD exac UTI Sepsis Techycardia CVA Indwelling Mazariegos PLAN: IV Solumedrol Aerosol nebs Cardiazem for HR controll. Abx per ID Zosyn and Flagyl. Darrick Roberson MD Nov 22, 2016 15:04
--- NOTE | 2016-11-22 16:47 | RADRPT ---
EXAM DATE/TIME: 11/22/2016 15:35 [facility] COMPARISON: ABDOMEN SINGLE VIEW, November 20, 2016, 14:26. INDICATIONS : Ileus. MEDICAL HISTORY : Cerebrovascular disease. SURGICAL HISTORY : Appendectomy. Cholecystectomy. ENCOUNTER: Subsequent ACUITY: 1 week PAIN SCORE: Non-responsive. LOCATION: Bilateral Abdomen FINDINGS: There is persistent mild gaseous distention of large and small bowel, likely slight improvement from previous exam. CONCLUSION: Slight improvement in bowel gas pattern Arnoldo Summers MD on November 22, 2016 at 16:42 Board Certified Radiologist. This report was verified electronically.
[2016-11-22] MEDS: DILTIAZEM HCL 60 MG TAB PO SCH ×2 (19:06→22:24)
--- NOTE | 2016-11-22 22:05 | RADRPT ---
EXAM DATE/TIME: 11/22/2016 21:22 [facility] COMPARISON: ABDOMEN KUB ONLY, November 22, 2016, 15:35. ABDOMEN SINGLE VIEW, November 20, 2016, 14:26. INDICATIONS : NG tube placement. MEDICAL HISTORY : unobtainable. SURGICAL HISTORY : unobtainable. ENCOUNTER: Initial ACUITY: 1 day PAIN SCORE: Non-responsive. LOCATION: Left abdomen. FINDINGS: 2 AP supine portable views of the mid and upper abdomen were obtained and demonstrate placement of a nasogastric tube with the tip projected over the mid stomach. Gas and stool is noted segmentally in t he colon. There is an overlying spinal stimulator device. There are multiple overlying echocardiogram leads. CONCLUSION: Interval placement of a nasogastric tube with the tip projected over the mid stomach. Luis Brennan MD on November 22, 2016 at 22:00 Board Certified Radiologist. This report was verified electronically.
[2016-11-22] MEDS: TAMSULOSIN HCL 0.4 MG CAP PO SCH (22:24)
[2016-11-23] VITALS (9 sets, daily range): BP systolic 119–148; BP diastolic 69–88; PULSE 86–113; RESP 18–24; TEMP 98–100; O2SAT 96–97
[2016-11-23] MEDS: PIPERACIL-TAZO 4.5 GM PREMIX 100 ML IV SCH ×2 (02:17→09:13)
[2016-11-23] MEDS: DEXT 5%-NACL 0.45% 1000 ML INJ 1,000 ML IV SCH ×2 (03:00→09:12)
[2016-11-23] MEDS: CARBIDOPA/LEVODOPA 25 MG/100 MG TAB PO SCH ×3 (05:18→21:27)
[2016-11-23] MEDS: LEVOTHYROXINE SODIUM 150 MCG TAB PO SCH (05:18)
[2016-11-23] MEDS: SODIUM CHLORIDE 0.9% FLUSH 5 ML FLUSH FLUSH SCH ×2 (09:11→21:26)
[2016-11-23] MEDS: methylPREDNISolone SOD SUCC 40 MG/1 ML VIAL IV PUSH SCH (09:13)
[2016-11-23] MEDS: DILTIAZEM HCL 60 MG TAB PO SCH ×4 (09:15→21:27)
[2016-11-23] MEDS: FLUoxetine HCL 20 MG CAP PO SCH (09:15)
[2016-11-23] MEDS: FUROSEMIDE 20 MG TAB PO SCH (09:15)
[2016-11-23] MEDS: TOLTERODINE TARTRATE 4 MG CAP LA PO SCH (09:15)
[2016-11-23] MEDS: DULoxetine HCl DR 20 MG CAP PO SCH ×2 (09:15→21:26)
[2016-11-23] MEDS: FINASTERIDE 5 MG TAB PO SCH (09:15)
[2016-11-23] MEDS: PANTOPRAZOLE SOD 40 MG DELAYED RELEASE TAB PO SCH (09:15)
[2016-11-23] MEDS: LACTULOSE SYRUP 20 GM/30 ML CUP PO SCH ×4 (09:15→21:27)
[2016-11-23] MEDS: prednisoLONE ACETATE 1% OPHT SUSP 5 ML BTL RIGHT EYE SCH (09:15)
[2016-11-23] MEDS: BUDESONIDE-FORMOTEROL 160/4.5 MCG INHALER INH SCH ×2 (09:16→21:27)
[2016-11-23] MEDS: FLUTICASONE 100 MCG/VILANTEROL 25 MCG INHALER INH SCH (09:16)
[2016-11-23] MEDS: FLUCONAZOLE 400 MG PREMIX BAG 200 ML IV SCH (12:13)
--- NOTE | 2016-11-23 12:52 | HHI.IDPN ---
Subjective Subjective Remarks Notes reviewed Temps ok No BM today D/W RN - she's concerned that lactulose might clogged the NGT GI did colonoscopy and fecal dissempaction 11/21 WBC down to normal Valles cath changed 11/16 Renal US - L kidney ok, R kidney not visualized KUB - full of stool and cecum 13.3 cm Mental status same - awake, following and not verbal LAst AXR 11/19 same dilated cecum Antibiotics Zosyn Diflucan Lines PIV Past Medical History COPD / bronchial asthma. History of atrial fibrillation CVA with weakness. Hypothyroidism. BPH. Peripheral arterial disease Parkinson's disease. Neurogenic bladder with chronic indwelling Valles catheter Chronic back pain post back pain stimulator Arthritis. Past Surgical History History of appendectomy. Cholecystectomy. Bilateral foot surgery. Multiple tooth extractions Allergies: Coded Allergies: MRI PRECAUTION (Verified Allergy, Severe, PT HAS INTERNAL STIMULATOR (ME) , 11/12/16) Vancomycin (Verified Allergy, Mild, Rash, 11/13/16) developed hives, pruritus *MDRO Multi-Drug Resistant Organism (Verified Adverse Reaction, Unknown, ) MRSA PCR Screen positive 09/29/15. Objective . Vital Signs Date Time Temp Pulse Resp B/P Pulse Ox O2 Delivery O2 Flow Rate FiO2 11/23/16 09:36 93 11/23/16 08:59 98.7 105 20 138/84 96 11/23/16 04:00 98.0 86 18 132/88 97 11/23/16 00:00 87 18 148/82 97 11/22/16 20:57 98 11/22/16 20:00 98.0 101 20 135/87 98 11/22/16 20:00 Nasal Cannula 2.00 11/22/16 19:30 96 Nasal Cannula 2.00 11/22/16 16:00 98.9 107 22 143/91 98 11/22/16 11/22/16 11/23/16 15:00 23:00 07:00 Intake Total 1582 ml 984 ml 1013 ml Output Total 1000 ml 500 ml Balance 582 ml 484 ml 1013 ml IV Total 1582 ml 884 ml 673 ml Tube Feeding 240 ml Other 100 ml 100 ml Output Urine Total 1000 ml 500 ml . Laboratory Tests Test 11/22/16 07:25 White Blood Count 10.1 TH/MM3 Red Blood Count 4.94 MIL/MM3 Hemoglobin 13.4 GM/DL Hematocrit 40.8 % Mean Corpuscular Volume 82.6 FL Mean Corpuscular Hemoglobin 27.1 PG Mean Corpuscular Hemoglobin 32.8 % Concent Red Cell Distribution Width 16.4 % Platelet Count 106 TH/MM3 Mean Platelet Volume 8.1 FL Laboratory Tests Test 11/22/16 11/22/16 00:03 07:25 Sodium Level 138 MEQ/L 138 MEQ/L Potassium Level 4.3 MEQ/L 4.1 MEQ/L Chloride Level 97 MEQ/L 96 MEQ/L Carbon Dioxide Level 35.2 MEQ/L 35.4 MEQ/L Anion Gap 6 MEQ/L 7 MEQ/L Blood Urea Nitrogen 14 MG/DL 11 MG/DL Creatinine 0.47 MG/DL 0.48 MG/DL Estimat Glomerular Filtration 212 ML/MIN 207 ML/MIN Rate Random Glucose 135 MG/DL 135 MG/DL Calcium Level 7.8 MG/DL 7.9 MG/DL Ammonia 15 MCMOL/L Imaging Abdomen/Pelvis CT 11/20/16 0000 Signed Impressions: Service Date/Time: Sunday, November 20, 2016 16:54 - CONCLUSION: 1. Distention of cecum to about 11 cm with oral contrast within the cecum. There is air and stool throughout the large bowel with moderate constipation. Patient at risk for cecal volvulus. 2. Dependent atelectasis at the lung bases with small left pleural effusion. Mild ascites around the liver. Probable liver cirrhosis. 3. Distended distal esophagus with NG tube in stomach. Valles catheter in bladder. Earl Santoro MD Abdomen X-Ray 11/20/16 0000 Signed Impressions: Service Date/Time: Sunday, November 20, 2016 14:26 - CONCLUSION: 1. NG tube in satisfactory position. 2. Stool diffusely throughout the colon with distention of the cecum suggesting constipation. Leon Gates MD Abdomen X-Ray 11/19/16 0000 Signed Impressions: Service Date/Time: Saturday, November 19, 2016 16:25 - CONCLUSION: Persistent dilatation of the cecum. Arnoldo Motley MD Renal Ultrasound 11/16/16 0000 Signed Impressions: Service Date/Time: October 16:50 - CONCLUSION: Study is limited. The right kidney is not seen clearly. The left kidney is without an acute abnormality. Valles in the bladder. Arnoldo Coombs MD Chest X-Ray 11/16/16 0000 Signed Impressions: Service Date/Time: October 13:46 - CONCLUSION: Persistent hypoinflation with improving bibasilar atelectatic changes. Joni Young MD Chest CT 11/12/16 0000 Signed Impressions: Service Date/Time: Saturday, November 12, 2016 16:38 - CONCLUSION: Mild emphysematous changes. I do not see any consolidative changes. David Gates MD FACR Abdomen X-Ray 11/19/16 0000 Signed Impressions: Service Date/Time: Saturday, November 19, 2016 16:25 - CONCLUSION: Persistent dilatation of the cecum. Arnoldo Motley MD Renal Ultrasound 11/16/16 0000 Signed Impressions: Service Date/Time: October 16:50 - CONCLUSION: Study is limited. The right kidney is not seen clearly. The left kidney is without an acute abnormality. Valles in the bladder. Arnoldo Coombs MD Chest X-Ray 11/16/16 0000 Signed Impressions: Service Date/Time: October 13:46 - CONCLUSION: Persistent hypoinflation with improving bibasilar atelectatic changes. oJni Young MD Abdomen X-Ray 11/16/16 0000 Signed Impressions: Service Date/Time: October 17:27 - CONCLUSION: Colonic distention with a large amount of stool and air. Ileus/nonmechanical obstruction thought most likely. Arnoldo Coombs MD Chest CT 11/12/16 0000 Signed Impressions: Service Date/Time: Saturday, November 12, 2016 16:38 - CONCLUSION: Mild emphysematous changes. I do not see any consolidative changes. David Gates MD FACR Physical Exam GENERAL: he is awake, focusing , nonverbal. Not in distress SKIN: Warm and dry, no rash noted, no embolic lesions. HEENT: [place] conjunctivae, no petechia or hemorrhage. No scleral icterus. Has white coating on his tongue. NECK: Trachea midline. No JVD or lymphadenopathy. Neck rigid, but no tenderness. CARDIOVASCULAR: Regular rate and rhythm without murmurs, gallops, or rubs. RESPIRATORY: Clear to auscultation. Breath sounds equal bilaterally. No wheezes , rales, or rhonchi. Decreased breath sounds at the bases. GASTROINTESTINAL: Abdomen less distended, with some tenderness on R. Bowel sounds are hypoactive. MUSCULOSKELETAL: Extremities without clubbing, cyanosis, or edema. No calf tenderness. Has scars in both feet from previous surgery NEUROLOGICAL: Awake, and focusing. Has spasticity of both UE. PSYCH: Restless LINE: PIV with no evidence of infection : Valles in place, urine looks clear Assessment & Plan Remarks IMPRESSION Recurrent fever, etiology? possibly with new sepsis - ?GI source - temps better UTI, has valles in place - repeat UA and UC negative Hx CVA, neurogenic bladder Encephalopathy, due to sepsis KUB full of stool, and cecum dilated RECOMMENDATION Stop Zosyn Cipro + Flagyl x 7 more days Continue Diflucan Monitor progress Monitor tiana D/W Maricel Mora MD Nov 23, 2016 12:52
--- NOTE | 2016-11-23 13:32 | PD.CONS ---
Consult Service Palliative Care Consult Requested By Dr. Mitchell Turk MD. Primary Care Physician Jhonny Fatima M.D. Reason for Consultation a. To assist with evaluation and management of symptoms including: debility and dysphagia. b. To assist medical decision maker(s) with: better understanding of current medical conditions; weighing benefits/burdens of medical treatment options; making medical treatment decisions. HPI History of Present Illness Mrs. Brennan is a 71 y/o male with a medical history significant for Parkinson's disease, COPD and CVA. Patient presented to the ED via EMS on 11/12/16 with reports of chest pain and fever. Patient is a SNF long-term resident secondary to bedbound state and maximum assist from CVA and Parkinson's disease. Upon ED evaluation, UA suggesting of UTI and CXR suggesting chronic left lower lobe density. He was started on sepsis protocol with fluids and antibiotics given accordingly. Patient was admitted for further management. Pulmonology -Dr. Roberson was consulted on 11/14 secondary to shortness of breath, COPD exacerbation. ID -Ernie consulted on 11/16 for evaluation secondary to recurrent fevers. On 11/20 GI -Dr. Joel was consulted secondary to constipation with fecal impaction. Abdominal x-ray on 11/16 revealing colonic distention with large amounts of stool and air and cecum measuring 13.3cm. Patient underwent decompressive colonoscopy on 11/21/16 with good results. Patient's clinical course further complicated by severe dysphagia and encephalopathy. Patient reported able to speak and communicate prior to this hospitalization. Palliative care has been consulted for clarification of goals of care in the setting of his poor prognosis for an improved quality of life or survival. Reviewed prior medical records. Patient with multiple hospitalizations within the past 3 years, mostly for COPD exacerbation. Fall with injuries in January 2014 requiring 3 weeks of rehab. At that time, he was discharge home ambulating with walker 35 feet with assist of two. Patient seen in his room, awake. No family at bedside. Eyes open and tracking at times. Following some commands such as open your mouth and nodding "no" when asked about pain. Weak squeeze with left hand, contracted right hand. NG tube in place with ongoing tube feeding. Speech therapy at bedside. Patient appears calm. Telephone conversation with patient's niece/HCS Dasha. She tells me that patient has been residing long-term at [facility] since mid 2013. He has shown progressive debility and physical deconditioning secondary to COPD, CVA and Parkinson's disease. He is bedbound and requires max assistance with ADL's. Was verbal prior to this hospitalization. Medical update provided. Reviewed hospital course to include worsening encephalopathy and dysphagia. reviewed trajectory of disease and poor prognosis for improved quality of life or survival. Discussed NG vs PEG tube vs comfort-directed care in the setting of his current clinical state. Dasha tells me that patient stopped eating prior to this hospitalization and verbalized he was "praying to ". Dasha tells me that patient does not like tubes or anything attached to him, reviewed peg tube and what would entail. Dasha electing to transition patient to comfort-directed care/ allow natural with hospice and not to pursue PEG placement. She would like for him to return to [facility] with hospice but would consider hospice care center for symptom management. . Function/Cognitive Trajectory Long-term resident at [facility] SNF secondary to bedbound status from CVA/Parkinson 's disease. Max assistance with all ADL's. . Review of Systems ROS Limitations: Clinical Condition (non-verbal, following some commands. ) Constitutional: COMPLAINS OF: Change in appetite, Pain, Generalized weakness, DENIES: Fever Ears, nose, mouth, throat: DENIES: Nasal discharge Respiratory: COMPLAINS OF: Shortness of breath Cardiovascular: COMPLAINS OF: Dyspnea on Exertion, DENIES: Lower Extremity Edema Gastrointestinal: COMPLAINS OF: Constipation, Difficulty Swallowing, DENIES: Nausea, Vomiting Genitourinary: COMPLAINS OF: Urinary incontinence Musculoskeletal: COMPLAINS OF: Stiffness Integumentary: DENIES: Abnormal pigmentation Neurologic: COMPLAINS OF: Abnormal gait, Speech Problems Other ROS: Limited ROS secondary to clinical condition. Patient non-verbal and only following some commands. ROS obtained from medical records and clinical observation. Past Family Social History Coded Allergies: MRI PRECAUTION (Verified Allergy, Severe, PT HAS INTERNAL STIMULATOR (ME) , 11/12/16) Vancomycin (Verified Allergy, Mild, Rash, 11/13/16) developed hives, pruritus *MDRO Multi-Drug Resistant Organism (Verified Adverse Reaction, Unknown, ) MRSA PCR Screen positive 09/29/15. Past Medical History CVA Parkinson's disease COPD Dysphagia Hypothyroidism Renal insufficiency Neuropathy Degenerative disc disease Atrial fibrillation Hypertension. Hyperlipidemia Enlarged prostate Radiculopathy Tubular adenoma . Past Surgical History History of appendectomy Cholecystectomy Bilateral foot surgery Multiple tooth extractions . Reported Medications Xanax (Alprazolam) 0.25 Mg Tab 0.25 Mg PO Q8HR PRN [place] (Hydrocodone-Acetaminophen) 5-325 mg Tab 1 Tab PO Q4H PRN Duragesic Patch 72 HR (Fentanyl) 75 Mcg/Hr Patch 75 Mcg T-DERMAL Q72H [place] (Acetaminophen) 500 Mg Tab 500 Mg PO Q4HR PRN Duoneb (Ipratropium-Albuterol Neb) 0.5-2.5 Mg/3 Ml Neb 1 Nebule INH TID NEB Ditropan XL 24 HR (Oxybutynin Chloride) 10 Mg Tab 10 Mg PO BID Advair Diskus Inh (Fluticasone-Salmeterol Inh) 250-50 Mcg/Blist Aer 1 Puff INH BID Protonix Liq (Pantoprazole Sodium) 40 Mg Pkt 40 Mg PO DAILY Fluoxetine (Fluoxetine HCl) 20 Mg Cap 20 Mg PO DAILY Ferrous Sulfate 325 Mg Tab 325 Mg PO DAILY Albuterol Neb (Albuterol Sulfate) 0.63 Mg/3 Ml Neb 0.63 Mg NEB Q4HR NEB PRN Omnipred Opth Drops (Prednisolone Acetate Opth Drops) 1% Susp 1 Drop RIGHT EYE DAILY Nitroglycerin SL (Nitroglycerin) 0.3 Mg Subl 0.3 Mg SL DIRECTED PRN Levothyroxine (Levothyroxine Sodium) 150 Mcg Tab 150 Mcg PO DAILY Lasix (Furosemide) 20 Mg Tab 20 Mg PO DAILY Flomax (Tamsulosin HCl) 0.4 Mg Cap 0.4 Mg PO HS Breo Ellipta Inh (Fluticasone/Vilanterol) 100-25 Mcg/Act Inh 1 Puff INH DAILY Sinemet (Carbidopa-Levodopa) 25-100 Mg Tab 1 Tab PO Q8HR Diltiazem (Diltiazem HCl) 30 Mg Tab 30 Mg PO QID Finasteride 5 Mg Tab 5 Mg PO DAILY Duloxetine DR (Duloxetine HCl) 20 Mg Capdr 20 Mg PO BID . Current Medications Medications (Trade) Dose Ordered Sig/Claire Route Start Time Stop Time Status Last Admin (NS Flush) 2 ml UNSCH PRN FLUSH 11/12/16 12:00 (NS Flush) 2 ml BID FLUSH 11/12/16 21:00 11/23/16 09:11 (Tylenol) 650 mg Q4H PRN PO 11/12/16 12:00 11/20/16 09:39 (Zofran Inj) 4 mg Q6H PRN IVP 11/12/16 12:00 (Narcan Inj) 0.4 mg UNSCH PRN IV 11/12/16 12:00 (Xanax) 0.25 mg Q8HR PRN PO 11/12/16 12:15 11/16/16 11:47 (Sinemet 25-100 Mg) 1 tab Q8HR PO 11/12/16 14:00 11/23/16 05:18 (Cymbalta Dr) 20 mg BID PO 11/12/16 21:00 11/23/16 09:15 (Duragesic 75 Mcg Patch.72 Hr) 1 patch Q72H T-DERMAL 11/12/16 14:00 11/21/16 17:05 (Proscar) 5 mg DAILY PO 11/13/16 09:00 11/23/16 09:15 (PROzac) 20 mg DAILY PO 11/13/16 09:00 11/23/16 09:15 (Breo Ellipta 100-25 Inh) 1 puff DAILY INH 11/13/16 09:00 11/23/16 09:16 (Lasix) 20 mg DAILY PO 11/13/16 09:00 11/23/16 09:15 ([place] 5-325 Mg) 1 tab Q4H PRN PO 11/12/16 12:15 11/16/16 15:25 (Synthroid) 150 mcg DAILY@07 PO 11/13/16 07:00 11/23/16 05:18 (Pred Forte 1% Opth Susp) 1 drop DAILY RIGHT EYE 11/13/16 09:00 11/23/16 09:15 (Flomax) 0.4 mg HS PO 11/12/16 21:00 11/22/16 22:24 (Symbicort 160-4.5 Inh) 2 puff BID INH 11/12/16 21:00 11/23/16 09:16 (Detrol La) 4 mg DAILY PO 11/13/16 09:00 11/23/16 09:15 (Protonix) 40 mg DAILY PO 11/13/16 09:00 11/23/16 09:15 (Benadryl) 25 mg BID PRN PO 11/12/16 23:45 11/12/16 23:49 Methylprednisolone Sodium Succinate 40 mg 40 mg DAILY IV PUSH 11/19/16 09:00 11/23/16 09:13 Dextrose/Sodium Chloride 1,000 ml @ 100 mls/hr Q10H IV 11/19/16 16:00 11/23/16 09:12 Piperacillin Sod/ Tazobactam Sod 100 ml @ 200 mls/hr Q6H IV 11/21/16 15:00 11/23/16 09:13 (Diflucan 400 Mg Premix Bag) 200 ml @ 100 mls/hr Q24H IV 11/21/16 14:00 11/23/16 12:13 (Lactulose Liq) 30 ml QID PO 11/21/16 18:00 11/23/16 12:13 (Cardizem) 60 mg QID PO 11/22/16 18:00 11/23/16 12:13 Family History Father at 72 secondary to alcoholism Mother at 87 secondary to coronary artery disease . Substance Use Tobacco: Quit in 1992. Used to smoke 3PPD. Alcohol: Quit in 1992. Used to drink 2 quarts of liquor a day. Prescription med abuse: none. Illicits: none. . Psychosocial History Never . Currently resident at [facility]. has a daughter in [place], unknown contact information. 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 Spiritual/Cultural Factors Taoism. . Living Will: Copy in medical record Health Care Surrogate: Copy in medical record Date completed: 02/05/2014. . Health Care Surrogate(s): Dasha Mark. . Documented care wishes: Living will in chart. However, only section regarding selection of healthcare surrogate completed. . Today's verbally stated goals: Patient unable to participate in goals of care conversation. . Family/friends goals: NO CODE/allow natural . No PEG tube. Transition to comfort-directed care with hospice. . Ethical and Legal Issues No living will completed. . Physical Exam Vital Signs Date Time Temp Pulse Resp B/P Pulse Ox O2 Delivery O2 Flow Rate FiO2 11/23/16 12:43 Nasal Cannula 2.00 50 11/23/16 09:36 93 11/23/16 08:59 98.7 105 20 138/84 96 11/23/16 04:00 98.0 86 18 132/88 97 11/23/16 00:00 87 18 148/82 97 11/22/16 20:57 98 11/22/16 20:00 98.0 101 20 135/87 98 11/22/16 20:00 Nasal Cannula 2.00 11/22/16 19:30 96 Nasal Cannula 2.00 11/22/16 16:00 98.9 107 22 143/91 98 11/22/16 11/23/16 19:00 07:00 Intake Total 1582 ml 1997 ml Output Total 1000 ml 500 ml Balance 582 ml 1497 ml IV Total 1582 ml 1557 ml Tube Feeding 240 ml Other 200 ml Output Urine Total 1000 ml 500 ml Exam CONSTITUTIONAL/GENERAL: This is an frail, elderly man in no apparent distress. TUBES/LINES/DRAINS: NG, PIV's, Mazariegos cath. SKIN: No jaundice, rashes, or lesions. No wounds seen anteriorly. Skin temperature appropriate. Not diaphoretic. HEAD: Atraumatic. Normocephalic. EYES: Pupils equal and round and reactive. No scleral icterus. No injection or drainage. Fundi not examined. ENT: Hearing appears grossly normal. Nose without bleeding or purulent drainage. Dry oral mucosa. Crusty lips and tongue. edentulous. NECK: Trachea midline. Supple, nontender. CARDIOVASCULAR: Regular rate and rhythm without murmurs, gallops, or rubs. No JVD. Peripheral pulses symmetric. RESPIRATORY/CHEST: Symmetric, unlabored respirations. Clear to auscultation. Breath sounds equal bilaterally. No wheezes, rales, or rhonchi. GASTROINTESTINAL: Abdomen round, large. No guarding. Bowel sounds present. GENITOURINARY: Without palpable bladder distension. Mazariegos catheter in place. MUSCULOSKELETAL: Extremities without clubbing, cyanosis, or edema. No mottling or clubbing. Several post surgical scars to bilateral toes. Contracted right hand. NEUROLOGICAL: Awake and alert. Following some commands. PSYCHIATRIC: unable to assess due to clinical status. Appears calm. . Diagnostic Tests Laboratory Laboratory Tests Test 11/22/16 11/22/16 00:03 07:25 Sodium Level 138 MEQ/L 138 MEQ/L (136-145) (136-145) Potassium Level 4.3 MEQ/L 4.1 MEQ/L (3.5-5.1) (3.5-5.1) Chloride Level 97 MEQ/L 96 MEQ/L (98-107) (98-107) Carbon Dioxide Level 35.2 MEQ/L 35.4 MEQ/L (21.0-32.0) (21.0-32.0) Anion Gap 6 MEQ/L (5-15) 7 MEQ/L (5-15) Blood Urea Nitrogen 14 MG/DL (7-18) 11 MG/DL (7-18) Creatinine 0.47 MG/DL 0.48 MG/DL (0.60-1.30) (0.60-1.30) Estimat Glomerular Filtration 212 ML/MIN 207 ML/MIN Rate (>89) (>89) Random Glucose 135 MG/DL 135 MG/DL (74-106) (74-106) Calcium Level 7.8 MG/DL 7.9 MG/DL (8.5-10.1) (8.5-10.1) Ammonia 15 MCMOL/L (11-32) White Blood Count 10.1 TH/MM3 (4.0-11.0) Red Blood Count 4.94 MIL/MM3 (4.50-5.90) Hemoglobin 13.4 GM/DL (13.0-17.0) Hematocrit 40.8 % (39.0-51.0) Mean Corpuscular Volume 82.6 FL (80.0-100.0) Mean Corpuscular Hemoglobin 27.1 PG (27.0-34.0) Mean Corpuscular Hemoglobin 32.8 % Concent (32.0-36.0) Red Cell Distribution Width 16.4 % (11.6-17.2) Platelet Count 106 TH/MM3 (150-450) Mean Platelet Volume 8.1 FL (7.0-11.0) Result Diagram: 11/22/16 0725 11/22/16 0725 Imaging Last Impressions Abdomen X-Ray 11/22/16 0000 Signed Impressions: Service Date/Time: Tuesday, November 22, 2016 21:22 - CONCLUSION: Interval placement of a nasogastric tube with the tip projected over the mid stomach. Luis Brennan MD Abdomen/Pelvis CT 11/20/16 0000 Signed Impressions: Service Date/Time: Sunday, November 20, 2016 16:54 - CONCLUSION: 1. Distention of cecum to about 11 cm with oral contrast within the cecum. There is air and stool throughout the large bowel with moderate constipation. Patient at risk for cecal volvulus. 2. Dependent atelectasis at the lung bases with small left pleural effusion. Mild ascites around the liver. Probable liver cirrhosis. 3. Distended distal esophagus with NG tube in stomach. Mazariegos catheter in bladder. Earl Santoro MD Renal Ultrasound 11/16/16 0000 Signed Impressions: Service Date/Time: October 16:50 - CONCLUSION: Study is limited. The right kidney is not seen clearly. The left kidney is without an acute abnormality. Mazariegos in the bladder. Arnoldo Coombs MD Chest X-Ray 11/16/16 0000 Signed Impressions: Service Date/Time: October 13:46 - CONCLUSION: Persistent hypoinflation with improving bibasilar atelectatic changes. Joni Young MD Chest CT 11/12/16 0000 Signed Impressions: Service Date/Time: Saturday, November 12, 2016 16:38 - CONCLUSION: Mild emphysematous changes. I do not see any consolidative changes. David Gates MD FACR Procedures * 11/21/16 -Colonoscopy with manual disimpaction. Patient/Family Conference Present at Family Conference: [facility] Dasha Clayton Family Conference Time (mins): 35 Family Conference Location: Telephone Issues Discussed: * Palliative care role, purpose, approach * Additional medical, psychosocial, and spiritual history * Patients general health, functional status, and cognitive changes in the months leading up to the current hospitalization * Family understanding of the current medical problems * Family understanding of prognosis * Patients goals of care as best understood from advance directives and/or conversations and/or values * Current medical treatment options and benefits/burdens of those options * Likely scenarios comparing ongoing aggressive care with a transition to comfort measures only * Questions answered to the best of my ability * Palliative care contact information provided . Assessment and Plan Disease Oriented Problem List: (1) Sepsis (2) History of CVA (cerebrovascular accident) (3) Parkinson disease (4) UTI (urinary tract infection) Symptom Scale: (1) Dysphagia 0-10 Scale: Unable to quantify Comment: NG with ongoing tube feeding in place. (2) Debility 0-10 Scale: Unable to quantify Comment: Progressive secondary to bedbound status/CVA/Parkinson's disease. (3) Pain, chronic 0-10 Scale: Unable to quantify Pertinent Non-Medical Issues Psychosocial: Resident of long-term facility. Spiritual: Taoism. Legal: Living will completed. Ethical issues impacting care: Living will in chart. However, only section regarding selection of healthcare surrogate completed. . Important Contacts Dasha Mark & . Prognosis Mrs. Brennan is a 71 y/o male with a medical history significant for Parkinson's disease, COPD and CVA. Patient presented to the ED via EMS on 11/12/16 with reports of chest pain and fever. Patient is a SNF long-term resident secondary to bedbound state and maximum assist from CVA and Parkinson's disease. Patient was admitted for management of urosepsis. Clinical course complicated by encephalopathy and severe dysphagia. patient's overall prognosis is poor given his age, baseline functional status and multiple chronic comorbidities such as COPD and Parkinson's disease. Patient's life expectancy is of days to weeks if illness runs its natural course. He is appropriate for hospice services. . Code Status: No Code Plan * NO CODE/allow natural . * Patient incapacitated to make healthcare decisions secondary to encephalopathy. Unclear if he will regain. [facility] Dasha mark. * GOALS OF CARE: Allow a natural /no code. No PEG tube. [facility] Dasha electing to transition patient to comfort-directed care with hospice given his poor prognosis for improved quality of life or survival. Hospice referral made, [facility] wishing for pt to return to [facility] with hospice but will consider hospice care center for symptom management. * Symptoms: dysphagia, secondary to progression of disease -Parkinson's/CVA/ debility. Family electing comfort feeds as tolerated and NO PEG. NG to be discontinued at discharge to hospice. pain, chronic, on fentanyl patch. Debility , progressive. * Case discussed with Dr. Turk and Dr. Womack/palliative care. * palliative care contact information provided to [facility] Dasha. * Ongoing emotional support and active listening provided. * Palliative care to continue f/u during this hospitalization. . Time Spent Total Floor Time (mins): 85 (Total time to include review and summarization of available medical records, physical exam, telephone conversation with [facility] Dasha and case discussion with Dr. Turk. ) Face to Face Time (mins): 25 >50% Counseling/Coord of Care: Yes Thank you for the opportunity to participate in the care of Mr. Brennan. Attestation To help prompt me to consider important information that might be impacting today's encounter and assessment, information from prior notes written by myself or my colleagues may have been "brought forward" into today's note. My signature on this note, however, is an attestation that I personally performed the exam, history, and/or decision-making noted today, and, unless otherwise indicated, the interactions with patient, family, and staff as well as the review of records all occurred today. I also attest that the listed assessment and stated plan reflect my best clinical judgment today based on the combination of historical information, prior notes, and today's exam/ interactions. When time spent is documented, it refers only to time spent today by the signer, or if indicated, combined time spent today by collaborating physician/nurse practitioner. Enma Maciel Nov 23, 2016 13:32
[2016-11-23] MEDS: CIPROFLOXACIN 500 MG TAB PO SCH ×2 (14:19→21:27)
[2016-11-23] MEDS: metroNIDAZOLE 500 MG TAB PO SCH ×2 (14:19→21:26)
--- NOTE | 2016-11-23 15:27 | HHI.PR ---
Subjective History of Present Illness lethargic low grade temp tube feeding was started , so far tolerating it Heart rate fluctuating Off IV cardizem belly still appears distended breathing is ok no cp offers no other c/o Vitals/Results Intake & Output 11/22/16 11/22/16 11/23/16 15:00 23:00 07:00 Intake Total 1582 ml 984 ml 1013 ml Output Total 1000 ml 500 ml Balance 582 ml 484 ml 1013 ml IV Total 1582 ml 884 ml 673 ml Tube Feeding 240 ml Other 100 ml 100 ml Output Urine Total 1000 ml 500 ml Vital Signs Vital Signs Date Time Temp Pulse Resp B/P Pulse Ox O2 Delivery O2 Flow Rate FiO2 11/23/16 12:43 Nasal Cannula 2.00 50 11/23/16 09:36 93 11/23/16 08:59 98.7 105 20 138/84 96 11/23/16 04:00 98.0 86 18 132/88 97 11/23/16 00:00 87 18 148/82 97 11/22/16 20:57 98 11/22/16 20:00 98.0 101 20 135/87 98 11/22/16 20:00 Nasal Cannula 2.00 11/22/16 19:30 96 Nasal Cannula 2.00 11/22/16 16:00 98.9 107 22 143/91 98 CBC/BMP: 11/22/16 0725 11/22/16 0725 Physical Exam General General Appearance: No Acute Distress, Malnourished Eyes Eye Exam: Pupils Equal, Sclera White Ears & Nose Ears & Nose Exam: Nasal Mucosa [place] Throat Throat Exam: Oral Mucosa [place] & Moist Neck Neck Exam: Neck Supple, Trachea Midline Pulmonary Resp Exam: No Distress Cardiology CV Exam: Irregular, Tachycardia Gastrointestinal/Abdomen GI Exam: Soft, Non-Tender, Bowel Sounds Present, Distended GI Remarks slightly distended No rigidity or rebound tenderness Musculoskeletal MS Exam: Atrophy Integumentary Skin Exam: Clear, Warm Extremeties Extremities Exam: Pedal Pulses Palpable, Trace Edema Neurologic Neuro Exam: Awake Neuro Remarks lethargic but arousable 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 Psychiatric Psych Exam: Appropriate Responses VTE Prophylaxis VTE Prophylaxis Device: SCDs VTE Prophylaxis Meds: Heparin PUD Prophylasis PUD Prophylaxis: Protonix Assessment/Plan Problem List: (1) Sepsis (2) COPD exacerbation (3) Chronic indwelling Mazariegos catheter (4) UTI (urinary tract infection) (5) Peripheral neuropathy (6) Hypertension (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 (8) Lumbar spinal stenosis (9) BPH (benign prostatic hyperplasia) (10) GERD (gastroesophageal reflux disease) (11) History of CVA (cerebrovascular accident) (12) Hyperlipidemia (13) Thrombocytopenia Assessment/Plan constipation/fecal impaction, dilated cecum stool softener ,s/p Fleet enema x 2 s/p mag citrate w modest results Status post colonic decompression, with good results/GI input appreciated NG tube feeding continue IV fluids by mouth Cardizem 60 every 6 hours IV abx per ID cultures remain negative Continue Duonebs oxygen Taper steroids Pulm following Proton pump inhibitor for GI prophylaxis. DNR status Condition guarded palliative care input appreciated I called & spoke palliative care RN claudia, she was able to communicate w pt's family/HCS & they are agreeing for Hospice Hospice is consulted/ possible d/c to Hospice care center or [place] w hospice when arrangements are made. Overall prognosis appears poor/hospice is appropriate d/w RN will f/u Problem Qualifiers (1) Sepsis: Qualified Code: A41.9 - Sepsis, due to unspecified organism (2) UTI (urinary tract infection): Qualified Code: T83.511S - Urinary tract infection associated with indwelling urethral catheter, sequela (3) Peripheral neuropathy: Qualified Code: G62.9 - Peripheral polyneuropathy (4) Hypertension: Qualified Code: I10 - Essential hypertension (5) BPH (benign prostatic hyperplasia): Qualified Code: N40.0 - Benign prostatic hyperplasia, presence of lower urinary tract symptoms unspecified, unspecified morphology (6) GERD (gastroesophageal reflux disease): Qualified Code: K21.9 - Gastroesophageal reflux disease without esophagitis (7) Hyperlipidemia: Qualified Code: E78.5 - Hyperlipidemia, unspecified hyperlipidemia type Mitchell Turk MD Nov 23, 2016 15:27
--- NOTE | 2016-11-23 19:34 | HHI.PR ---
Subjective Remarks YO AA male with COPD,Fever, sob HR high on cardiazem drip Mild sob and wheezing Breathing better today Obtunded Objective Vital Signs Vital Signs Date Time Temp Pulse Resp B/P Pulse Ox O2 Delivery O2 Flow Rate FiO2 11/23/16 16:00 100.0 107 20 126/73 97 11/23/16 12:43 Nasal Cannula 2.00 50 11/23/16 12:00 99.2 106 20 122/69 96 11/23/16 09:36 93 11/23/16 08:59 98.7 105 20 138/84 96 11/23/16 04:00 98.0 86 18 132/88 97 11/23/16 00:00 87 18 148/82 97 11/22/16 20:57 98 11/22/16 20:00 98.0 101 20 135/87 98 11/22/16 20:00 Nasal Cannula 2.00 I/O 11/22/16 11/22/16 11/22/16 11/23/16 11/23/16 11/23/16 07:00 15:00 23:00 07:00 15:00 23:00 Intake Total 0 ml 1582 ml 984 ml 1013 ml 1266 ml Output Total 750 ml 1000 ml 500 ml 1000 ml Balance -750 ml 582 ml 484 ml 1013 ml 266 ml Intake Oral 0 ml IV Total 1582 ml 884 ml 673 ml 972 ml Tube Feeding 240 ml 294 ml Other 100 ml 100 ml Output Urine Total 750 ml 1000 ml 500 ml 1000 ml # Bowel Movements 0 Result Diagram: 11/22/1672411/22/16724 Objective Remarks GENERAL: MBMN Male mild sob SKIN: Warm and dry. HEAD: Normocephalic. EYES: No scleral icterus. No injection or drainage. NECK: Supple, trachea midline. No JVD or lymphadenopathy. CARDIOVASCULAR: Regular rate and rhythm without murmurs, gallops, or rubs. RESPIRATORY: Breath sounds equal bilaterally. No accessory muscle use. GASTROINTESTINAL: Abdomen soft, non-tender, nondistended. MUSCULOSKELETAL: No cyanosis, or edema. BACK: Nontender without obvious deformity. No CVA tenderness. A/P Assessment and Plan COPD exac UTI Sepsis Techycardia CVA Indwelling Mazariegos PLAN: IV Solumedrol Aerosol nebs Cardiazem for HR controll. Abx per ID Zosyn and Flagyl. Palliative care consulted Darrick Roberson MD Nov 23, 2016 19:34
[2016-11-23] MEDS: TAMSULOSIN HCL 0.4 MG CAP PO SCH (21:26)
[2016-11-23] MEDS: ACETAMINOPHEN/HYDROcodone 325 MG/5 MG TAB PO PRN (23:05)
[2016-11-24] VITALS (7 sets, daily range): BP systolic 128–138; BP diastolic 79–90; PULSE 97–113; RESP 18–22; TEMP 98.4–99.8; O2SAT 95–98
[2016-11-24] MEDS: metroNIDAZOLE 500 MG TAB PO SCH ×2 (05:21→13:39)
[2016-11-24] MEDS: DEXT 5%-NACL 0.45% 1000 ML INJ 1,000 ML IV SCH ×3 (05:21→16:00)
[2016-11-24] MEDS: LEVOTHYROXINE SODIUM 150 MCG TAB PO SCH (05:21)
[2016-11-24] MEDS: CARBIDOPA/LEVODOPA 25 MG/100 MG TAB PO SCH ×2 (05:21→13:40)
[2016-11-24] MEDS: BUDESONIDE-FORMOTEROL 160/4.5 MCG INHALER INH SCH (09:00)
[2016-11-24] MEDS: FLUTICASONE 100 MCG/VILANTEROL 25 MCG INHALER INH SCH (09:00)
[2016-11-24] MEDS ORDERED: FLUCONAZOLE 100 MG TAB PO SCH (09:00)
[2016-11-24] MEDS: SODIUM CHLORIDE 0.9% FLUSH 5 ML FLUSH FLUSH SCH (09:02)
[2016-11-24] MEDS: methylPREDNISolone SOD SUCC 40 MG/1 ML VIAL IV PUSH SCH (09:03)
[2016-11-24] MEDS: FINASTERIDE 5 MG TAB PO SCH (09:03)
[2016-11-24] MEDS: FUROSEMIDE 20 MG TAB PO SCH (09:03)
[2016-11-24] MEDS: DULoxetine HCl DR 20 MG CAP PO SCH (09:03)
[2016-11-24] MEDS: DILTIAZEM HCL 60 MG TAB PO SCH ×3 (09:03→17:15)
[2016-11-24] MEDS: FLUoxetine HCL 20 MG CAP PO SCH (09:03)
[2016-11-24] MEDS: CIPROFLOXACIN 500 MG TAB PO SCH (09:03)
[2016-11-24] MEDS: LACTULOSE SYRUP 20 GM/30 ML CUP PO SCH ×3 (09:03→17:15)
[2016-11-24] MEDS: TOLTERODINE TARTRATE 4 MG CAP LA PO SCH (09:03)
[2016-11-24] MEDS: PANTOPRAZOLE SOD 40 MG DELAYED RELEASE TAB PO SCH (09:03)
[2016-11-24] MEDS: prednisoLONE ACETATE 1% OPHT SUSP 5 ML BTL RIGHT EYE SCH (09:04)
--- NOTE | 2016-11-24 10:14 | HHI.IDPN ---
Subjective Subjective Remarks Notes reviewed Temps ok No BM Abdomen seems more distended Palliative medicine consult reviewed GI did colonoscopy and fecal dissempaction 11/21 WBC down to normal Valles cath changed 11/16 Renal US - L kidney ok, R kidney not visualized KUB - full of stool and cecum 13.3 cm Mental status same - awake, following and not verbal LAst AXR 11/19 same dilated cecum Antibiotics Cipro Flagyl Diflucan Lines PIV Past Medical History Reviewed Allergies: Coded Allergies: MRI PRECAUTION (Verified Allergy, Severe, PT HAS INTERNAL STIMULATOR (ME) , 11/12/16) Vancomycin (Verified Allergy, Mild, Rash, 11/13/16) developed hives, pruritus *MDRO Multi-Drug Resistant Organism (Verified Adverse Reaction, Unknown, ) MRSA PCR Screen positive 09/29/15. Objective . Vital Signs Date Time Temp Pulse Resp B/P Pulse Ox O2 Delivery O2 Flow Rate FiO2 11/24/16 08:50 Nasal Cannula 2.00 50 11/24/16 08:22 98 Nasal Cannula 2.00 11/24/16 07:53 97 11/24/16 04:28 98.9 102 22 128/82 97 11/24/16 04:00 Nasal Cannula 2.00 11/24/16 00:09 97 Nasal Cannula 2.00 11/24/16 00:00 Nasal Cannula 2.00 11/23/16 23:48 98.9 112 24 119/73 97 11/23/16 21:00 98.6 111 24 122/71 96 11/23/16 20:01 113 11/23/16 20:00 Nasal Cannula 2.00 11/23/16 16:00 100.0 107 20 126/73 97 11/23/16 12:43 Nasal Cannula 2.00 50 11/23/16 12:00 99.2 106 20 122/69 96 11/23/16 11/23/16 11/24/16 15:00 23:00 07:00 Intake Total 1266 ml 1169 ml 1057 ml Output Total 1000 ml 500 ml 400 ml Balance 266 ml 669 ml 657 ml Intake Oral 0 ml 0 ml IV Total 972 ml 766 ml 590 ml Tube Feeding 294 ml 253 ml 267 ml Other 150 ml 200 ml Output Urine Total 1000 ml 500 ml 400 ml # Bowel Movements 0 0 Imaging Abdomen/Pelvis CT 11/20/16 0000 Signed Impressions: Service Date/Time: Sunday, November 20, 2016 16:54 - CONCLUSION: 1. Distention of cecum to about 11 cm with oral contrast within the cecum. There is air and stool throughout the large bowel with moderate constipation. Patient at risk for cecal volvulus. 2. Dependent atelectasis at the lung bases with small left pleural effusion. Mild ascites around the liver. Probable liver cirrhosis. 3. Distended distal esophagus with NG tube in stomach. Valles catheter in bladder. Earl Santoro MD Abdomen X-Ray 11/20/16 0000 Signed Impressions: Service Date/Time: Sunday, November 20, 2016 14:26 - CONCLUSION: 1. NG tube in satisfactory position. 2. Stool diffusely throughout the colon with distention of the cecum suggesting constipation. Leon Gates MD Abdomen X-Ray 11/19/16 0000 Signed Impressions: Service Date/Time: Saturday, November 19, 2016 16:25 - CONCLUSION: Persistent dilatation of the cecum. Arnoldo Motley MD Renal Ultrasound 11/16/16 0000 Signed Impressions: Service Date/Time: October 16:50 - CONCLUSION: Study is limited. The right kidney is not seen clearly. The left kidney is without an acute abnormality. Valles in the bladder. Arnoldo Coombs MD Chest X-Ray 11/16/16 0000 Signed Impressions: Service Date/Time: October 13:46 - CONCLUSION: Persistent hypoinflation with improving bibasilar atelectatic changes. Joni Young MD Chest CT 11/12/16 0000 Signed Impressions: Service Date/Time: Saturday, November 12, 2016 16:38 - CONCLUSION: Mild emphysematous changes. I do not see any consolidative changes. David Gates MD FACR Abdomen X-Ray 11/19/16 0000 Signed Impressions: Service Date/Time: Saturday, November 19, 2016 16:25 - CONCLUSION: Persistent dilatation of the cecum. Arnoldo Motley MD Renal Ultrasound 11/16/16 0000 Signed Impressions: Service Date/Time: October 16:50 - CONCLUSION: Study is limited. The right kidney is not seen clearly. The left kidney is without an acute abnormality. Valles in the bladder. Arnoldo Coombs MD Chest X-Ray 11/16/16 0000 Signed Impressions: Service Date/Time: October 13:46 - CONCLUSION: Persistent hypoinflation with improving bibasilar atelectatic changes. Joni Young MD Abdomen X-Ray 11/16/16 0000 Signed Impressions: Service Date/Time: October 17:27 - CONCLUSION: Colonic distention with a large amount of stool and air. Ileus/nonmechanical obstruction thought most likely. Arnoldo Coombs MD Chest CT 11/12/16 0000 Signed Impressions: Service Date/Time: Saturday, November 12, 2016 16:38 - CONCLUSION: Mild emphysematous changes. I do not see any consolidative changes. David Gates MD FACR Physical Exam GENERAL: awakens easily, focusing , nonverbal. Not in distress SKIN: Warm and dry, no rash noted, no embolic lesions. HEENT: [place] conjunctivae, no petechia or hemorrhage. No scleral icterus. Has white coating on his tongue. NECK: Trachea midline. No JVD or lymphadenopathy. Neck rigid, but no tenderness. CARDIOVASCULAR: Regular rate and rhythm without murmurs, gallops, or rubs. RESPIRATORY: Clear to auscultation. Breath sounds equal bilaterally. No wheezes , rales, or rhonchi. Decreased breath sounds at the bases. GASTROINTESTINAL: Abdomen seems more distended compared to yesterday, grimacing during palpation, very tympanitic on percussion, no guarding. Bowel sounds are hypoactive. MUSCULOSKELETAL: Extremities without clubbing, cyanosis, or edema. No calf tenderness. Has scars in both feet from previous surgery NEUROLOGICAL: Awake, and focusing. Has spasticity of both UE. PSYCH: Restless LINE: PIV with no evidence of infection : Valles in place, urine looks clear Assessment & Plan Remarks IMPRESSION Recurrent fever, etiology? possibly with new sepsis - ?GI source - temps better UTI, has valles in place - repeat UA and UC negative Hx CVA, neurogenic bladder Encephalopathy, due to sepsis KUB full of stool, and cecum dilated RECOMMENDATION Cipro + Flagyl x 7 more days Continue Diflucan x 7 days Monitor progress Monitor temps Family leaning towards comfort measures Maricel Klein MD Nov 24, 2016 10:14
--- NOTE | 2016-11-24 13:01 | HHI.PR ---
Subjective History of Present Illness remained lethargic opens eyes, mumbles than drift back temp is down Heart rate fluctuating belly still appears distended breathing is ok no cp offers no other c/o Vitals/Results Intake & Output 11/23/16 11/23/16 11/24/16 15:00 23:00 07:00 Intake Total 1266 ml 1169 ml 1057 ml Output Total 1000 ml 500 ml 400 ml Balance 266 ml 669 ml 657 ml Intake Oral 0 ml 0 ml IV Total 972 ml 766 ml 590 ml Tube Feeding 294 ml 253 ml 267 ml Other 150 ml 200 ml Output Urine Total 1000 ml 500 ml 400 ml # Bowel Movements 0 0 Vital Signs Vital Signs Date Time Temp Pulse Resp B/P Pulse Ox O2 Delivery O2 Flow Rate FiO2 11/24/16 11:57 98.4 106 18 138/89 95 11/24/16 08:50 Nasal Cannula 2.00 50 11/24/16 08:22 98 Nasal Cannula 2.00 11/24/16 08:00 98.6 105 20 134/79 96 11/24/16 07:53 97 11/24/16 04:28 98.9 102 22 128/82 97 11/24/16 04:00 Nasal Cannula 2.00 11/24/16 00:09 97 Nasal Cannula 2.00 11/24/16 00:00 Nasal Cannula 2.00 11/23/16 23:48 98.9 112 24 119/73 97 11/23/16 21:00 98.6 111 24 122/71 96 11/23/16 20:01 113 11/23/16 20:00 Nasal Cannula 2.00 11/23/16 16:00 100.0 107 20 126/73 97 CBC/BMP: 11/22/16 0725 11/22/16 0725 Physical Exam General General Appearance: No Acute Distress, Malnourished Eyes Eye Exam: Pupils Equal, Sclera White Ears & Nose Ears & Nose Exam: Nasal Mucosa [place] Throat Throat Exam: Oral Mucosa [place] & Moist Neck Neck Exam: Neck Supple, Trachea Midline Pulmonary Resp Exam: No Distress Cardiology CV Exam: Irregular, Tachycardia Gastrointestinal/Abdomen GI Exam: Soft, Non-Tender, Bowel Sounds Present, Distended GI Remarks slightly distended No rigidity or rebound tenderness Musculoskeletal MS Exam: Atrophy Integumentary Skin Exam: Clear, Warm Extremeties Extremities Exam: Pedal Pulses Palpable, Trace Edema Neurologic Neuro Exam: Awake Neuro Remarks lethargic but arousable 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 Psychiatric Psych Exam: Appropriate Responses VTE Prophylaxis VTE Prophylaxis Device: SCDs VTE Prophylaxis Meds: Heparin PUD Prophylasis PUD Prophylaxis: Protonix Assessment/Plan Problem List: (1) Sepsis (2) COPD exacerbation (3) Chronic indwelling Mazariegos catheter (4) UTI (urinary tract infection) (5) Peripheral neuropathy (6) Hypertension (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 DNR status Condition guarded palliative care input appreciated await Hospice input d/c to Hospice care center vs [place] w Hospice when arrangements are made Overall prognosis appears poor/hospice is appropriate see [facility] see Orders d./w SW Dr harp will f/u in am if pt remained inhouse. will f/u Problem Qualifiers (1) Sepsis: Qualified Code: A41.9 - Sepsis, due to unspecified organism (2) UTI (urinary tract infection): Qualified Code: T83.511S - Urinary tract infection associated with indwelling urethral catheter, sequela (3) Peripheral neuropathy: Qualified Code: G62.9 - Peripheral polyneuropathy (4) Hypertension: Qualified Code: I10 - Essential hypertension (5) BPH (benign prostatic hyperplasia): Qualified Code: N40.0 - Benign prostatic hyperplasia, presence of lower urinary tract symptoms unspecified, unspecified morphology (6) GERD (gastroesophageal reflux disease): Qualified Code: K21.9 - Gastroesophageal reflux disease without esophagitis (7) Hyperlipidemia: Qualified Code: E78.5 - Hyperlipidemia, unspecified hyperlipidemia type Mitchell Turk MD Nov 24, 2016 13:01
[2016-11-24] MEDS: fentaNYL 75 MCG/HR PATCH T-DERMAL SCH (13:39)
[2016-11-24] MEDS ORDERED: CIPR-9 PO (15:24)
[2016-11-24] MEDS ORDERED: FENT75T T-DERMAL (15:24)
[2016-11-24] MEDS ORDERED: DIFL100T PO (15:24)
[2016-11-24] MEDS ORDERED: DILT60TA33 PO (15:24)
[2016-11-24] MEDS ORDERED: HYDR-3516 PO (15:24)
[2016-11-24] MEDS ORDERED: LACT10SO PO (15:24)
[2016-11-24] MEDS ORDERED: ALPR.25 PO (15:24)
--- NOTE | 2016-11-24 15:31 | HHI.GIFU ---
Subjective Remarks Resting in bed. Nonresponsive. D/W CM- [facility] has decided on Hospice, but they are awaiting for the official consents to be obtained. Nurse reports that he is tolerating tf. No bm. Appears to be uncomfortable (Annamaria Clayton) Objective Vitals I&O Vital Signs Date Time Temp Pulse Resp B/P Pulse Ox O2 Delivery O2 Flow Rate FiO2 11/24/16 11:57 98.4 106 18 138/89 95 11/24/16 08:50 Nasal Cannula 2.00 50 11/24/16 08:22 98 Nasal Cannula 2.00 11/24/16 08:00 98.6 105 20 134/79 96 11/24/16 07:53 97 11/24/16 04:28 98.9 102 22 128/82 97 11/24/16 04:00 Nasal Cannula 2.00 11/24/16 00:09 97 Nasal Cannula 2.00 11/24/16 00:00 Nasal Cannula 2.00 11/23/16 23:48 98.9 112 24 119/73 97 11/23/16 21:00 98.6 111 24 122/71 96 11/23/16 20:01 113 11/23/16 20:00 Nasal Cannula 2.00 11/23/16 16:00 100.0 107 20 126/73 97 I/O 11/23/16 11/23/16 11/23/16 11/24/16 11/24/16 11/24/16 07:00 15:00 23:00 07:00 15:00 23:00 Intake Total 1013 ml 1266 ml 1169 ml 1057 ml 1358 ml Output Total 1000 ml 500 ml 400 ml Balance 1013 ml 266 ml 669 ml 657 ml 1358 ml Intake Oral 0 ml 0 ml IV Total 673 ml 972 ml 766 ml 590 ml 1002 ml Tube Feeding 240 ml 294 ml 253 ml 267 ml 356 ml Other 100 ml 150 ml 200 ml Output Urine Total 1000 ml 500 ml 400 ml # Bowel Movements 0 0 Imaging Last Impressions Abdomen X-Ray 11/22/16 0000 Signed Impressions: Service Date/Time: Tuesday, November 22, 2016 21:22 - CONCLUSION: Interval placement of a nasogastric tube with the tip projected over the mid stomach. Luis Brennan MD Abdomen/Pelvis CT 11/20/16 0000 Signed Impressions: Service Date/Time: Sunday, November 20, 2016 16:54 - CONCLUSION: 1. Distention of cecum to about 11 cm with oral contrast within the cecum. There is air and stool throughout the large bowel with moderate constipation. Patient at risk for cecal volvulus. 2. Dependent atelectasis at the lung bases with small left pleural effusion. Mild ascites around the liver. Probable liver cirrhosis. 3. Distended distal esophagus with NG tube in stomach. Mazariegos catheter in bladder. Earl Santoro MD Renal Ultrasound 11/16/16 0000 Signed Impressions: Service Date/Time: October 16:50 - CONCLUSION: Study is limited. The right kidney is not seen clearly. The left kidney is without an acute abnormality. Mazariegos in the bladder. Arnoldo Coombs MD Chest X-Ray 11/16/16 0000 Signed Impressions: Service Date/Time: October 13:46 - CONCLUSION: Persistent hypoinflation with improving bibasilar atelectatic changes. Joni Young MD Chest CT 11/12/16 0000 Signed Impressions: Service Date/Time: Saturday, November 12, 2016 16:38 - CONCLUSION: Mild emphysematous changes. I do not see any consolidative changes. David Gates MD FACR Physical Exam HEENT: Normocephalic; atraumatic; no jaundice. T CHEST: CTA, diminished bases CARDIAC: RRR ABDOMEN: Soft, distended, nontender; no hepatosplenomegaly; bowel sounds are hypoactive EXTREMITIES: No clubbing, cyanosis, or edema. SKIN: Normal; no rash; no jaundice. BUNDLE HELPER: Lethargic, nonverbal does not follow commands (Annamaria Clayton) Assessment and Plan Plan ASSESSMENT: - Ileus, Constipation. KUB (11/19/16) revealed persistent dilatation of the cecum. He was given stool softeners and half a bottle of magnesium citrate. Of note, he had a KUB on (11/16/16) and this revealed colonic distention with a large amount of stool and air, cecum measuring up to 13.3 cm. Abdomen/Pelvis CT (11/20/16)----> 1. Distention of cecum to about 11 cm with oral contrast within the cecum. There is air and stool throughout the large bowel with moderate constipation. Patient at risk for cecal volvulus. 2. Dependent atelectasis at the lung bases with small left pleural effusion. Mild ascites around the liver. Probable liver cirrhosis. 3. Distended distal esophagus with NG tube in stomach. Mazariegos catheter in bladder. S/P Colonscopy (11/21/16)---> Large amount of stool in cecum and rest of colon , aggressive washing done, hemorrhoids, ulcer in rectum, most likely stercoral ulcer, large amount of fluid placed (750cc), retroflexed views revealed small internal thrombosed hemorrhoids, external hemorrhoids. Lactulose 30mL po QID via NGT. SSE x2 today. - Dysphagia. EGD (04/26/15) and this revealed gastritis, large esophageal varices , no dilatation was done. It was recommended that he have a repeat endoscopy with band ligation of his varices in 4-6 weeks. - Disp. [facility] has decided on Hospice, but official consent has not been signed yet. PLAN: - TF via NGT - Lactulose 30mL per NGT QID - SSE x 2 today, as he has not had a bowel movement and appears uncomfortable - Hospice care - GI will sign off, please reconsult as needed - Pt seen and examined by Dr. Joel and myself and this note is written on his behalf (Annamaria Clayton) Physician Comments seen, examined agree with above (Barbara Joel MD) Annamaria Clayton Nov 24, 2016 15:31 Barbara Joel MD Nov 24, 2016 18:37
--- NOTE | 2016-11-24 16:48 | HHI.HCPN ---
Reason for visit a. To assist with evaluation and management of symptoms including: debility and dysphagia. b. To assist medical decision maker(s) with: better understanding of current medical conditions; weighing benefits/burdens of medical treatment options; making medical treatment decisions. Subjective/Interval History Patient seen in his room, awake. No family at bedside. Eyes open and tracking at times. Following some commands such as open your mouth and nodding "no" when asked about pain. Weak squeeze with left hand, contracted right hand. Patient appears calm. Afbrile, stable BP. No new labs or imaging. Telephone call patient's niece/HCS Dasha and left message in . Hospice referral completed. Dasha unable to visit hospital for hospice visit, [employer] to meet with Dasha at her house this afternoon. family wishing for pt discharge to his long-tern facility with hospice. palliative care to f/u. . Family/friend interactions See interval note. Advance Directives Living Will: Copy in medical record Health Care Surrogate: Copy in medical record Advance Directive Specifics Date completed: 02/05/2014. . Health Care Surrogate(s): Dasha Clayton -Feliciano. . Documented care wishes: Living will in chart. However, only section regarding selection of healthcare surrogate completed. . Significant change in goals: NO CODE. transition to comfort-directed care -discharge to his long-term facility with hospice. . Objective Vital Signs Date Time Temp Pulse Resp B/P Pulse Ox O2 Delivery O2 Flow Rate FiO2 11/24/16 11:57 98.4 106 18 138/89 95 11/24/16 08:50 Nasal Cannula 2.00 50 11/24/16 08:22 98 Nasal Cannula 2.00 11/24/16 08:00 98.6 105 20 134/79 96 11/24/16 07:53 97 11/24/16 04:28 98.9 102 22 128/82 97 11/24/16 04:00 Nasal Cannula 2.00 11/24/16 00:09 97 Nasal Cannula 2.00 11/24/16 00:00 Nasal Cannula 2.00 11/23/16 23:48 98.9 112 24 119/73 97 11/23/16 21:00 98.6 111 24 122/71 96 11/23/16 20:01 113 11/23/16 20:00 Nasal Cannula 2.00 Intake & Output 11/24/16 11/24/16 07:00 19:00 Intake Total 2226 ml 1358 ml Output Total 900 ml Balance 1326 ml 1358 ml Intake Oral 0 ml IV Total 1356 ml 1002 ml Tube Feeding 520 ml 356 ml Other 350 ml Output Urine Total 900 ml # Bowel Movements 0 Physical Exam CONSTITUTIONAL/GENERAL: This is an frail, elderly man in no apparent distress. TUBES/LINES/DRAINS: NG, PIV's, Mazariegos cath. SKIN: No jaundice, rashes, or lesions. No wounds seen anteriorly. Skin temperature appropriate. Not diaphoretic. HEAD: Atraumatic. Normocephalic. EYES: Pupils equal and round and reactive. No scleral icterus. No injection or drainage. Fundi not examined. ENT: Hearing appears grossly normal. Nose without bleeding or purulent drainage. Dry oral mucosa. edentulous. NECK: Trachea midline. Supple, nontender. CARDIOVASCULAR: Regular rate and rhythm without murmurs, gallops, or rubs. No JVD. Peripheral pulses symmetric. RESPIRATORY/CHEST: Symmetric, unlabored respirations. Clear to auscultation. Breath sounds equal bilaterally. No wheezes, rales, or rhonchi. GASTROINTESTINAL: Abdomen round, large. No guarding. Bowel sounds present. GENITOURINARY: Without palpable bladder distension. Mazariegos catheter in place. MUSCULOSKELETAL: Extremities without clubbing, cyanosis, or edema. No mottling or clubbing. Several post surgical scars to bilateral toes. Contracted right hand. NEUROLOGICAL: Awake and alert. Following some commands. PSYCHIATRIC: unable to assess due to clinical status. Appears calm. . Diagnostic Tests Laboratory Laboratory Tests Test 11/22/16 11/22/16 00:03 07:25 Sodium Level 138 MEQ/L 138 MEQ/L (136-145) (136-145) Potassium Level 4.3 MEQ/L 4.1 MEQ/L (3.5-5.1) (3.5-5.1) Chloride Level 97 MEQ/L 96 MEQ/L (98-107) (98-107) Carbon Dioxide Level 35.2 MEQ/L 35.4 MEQ/L (21.0-32.0) (21.0-32.0) Anion Gap 6 MEQ/L (5-15) 7 MEQ/L (5-15) Blood Urea Nitrogen 14 MG/DL (7-18) 11 MG/DL (7-18) Creatinine 0.47 MG/DL 0.48 MG/DL (0.60-1.30) (0.60-1.30) Estimat Glomerular Filtration 212 ML/MIN 207 ML/MIN Rate (>89) (>89) Random Glucose 135 MG/DL 135 MG/DL (74-106) (74-106) Calcium Level 7.8 MG/DL 7.9 MG/DL (8.5-10.1) (8.5-10.1) Ammonia 15 MCMOL/L (11-32) White Blood Count 10.1 TH/MM3 (4.0-11.0) Red Blood Count 4.94 MIL/MM3 (4.50-5.90) Hemoglobin 13.4 GM/DL (13.0-17.0) Hematocrit 40.8 % (39.0-51.0) Mean Corpuscular Volume 82.6 FL (80.0-100.0) Mean Corpuscular Hemoglobin 27.1 PG (27.0-34.0) Mean Corpuscular Hemoglobin 32.8 % Concent (32.0-36.0) Red Cell Distribution Width 16.4 % (11.6-17.2) Platelet Count 106 TH/MM3 (150-450) Mean Platelet Volume 8.1 FL (7.0-11.0) Result Diagram: 11/22/1625 11/22/16 0725 Procedures * 11/21/16 -Colonoscopy with manual disimpaction. Assessment and Plan Disease Oriented Problem List: (1) Sepsis (2) History of CVA (cerebrovascular accident) (3) Parkinson disease (4) UTI (urinary tract infection) Symptom Scale: (1) Dysphagia 0-10 Scale: Unable to quantify Comment: NG with ongoing tube feeding in place. (2) Debility 0-10 Scale: Unable to quantify Comment: Progressive secondary to bedbound status/CVA/Parkinson's disease. (3) Pain, chronic 0-10 Scale: Unable to quantify Pertinent Non-Medical Issues Psychosocial: Resident of long-term facility. Spiritual: Zoroastrian. Legal: Living will completed. Ethical issues impacting care: Living will in chart. However, only section regarding selection of healthcare surrogate completed. . Important Contacts Dasha Clayton -Niece & . Prognosis Mrs. Brennan is a 71 y/o male with a medical history significant for Parkinson's disease, COPD and CVA. Patient presented to the ED via EMS on 11/12/16 with reports of chest pain and fever. Patient is a SNF long-term resident secondary to bedbound state and maximum assist from CVA and Parkinson's disease. Patient was admitted for management of urosepsis. Clinical course complicated by encephalopathy and severe dysphagia. patient's overall prognosis is poor given his age, baseline functional status and multiple chronic comorbidities such as COPD and Parkinson's disease. Patient's life expectancy is of days to weeks if illness runs its natural course. He is appropriate for hospice services. . Code Status: No Code Plan * NO CODE/allow natural . * Patient incapacitated to make healthcare decisions secondary to encephalopathy. Unclear if he will regain. [facility] Dasha Clayton -niece. * GOALS OF CARE: Allow a natural /no code. No PEG tube. [facility] Dasha electing to transition patient to comfort-directed care with hospice given his poor prognosis for improved quality of life or survival. Hospice referral made, [facility] wishing for pt to return to [facility] with hospice but will consider hospice care center for symptom management. [facility] Dasha unable to come to hospital for hospice meeting, [employer] to visit Dasha at her house this afternoon. * Symptoms: dysphagia, secondary to progression of disease -Parkinson's/CVA/ debility. Family electing comfort feeds as tolerated and NO PEG. NG to be discontinued at discharge to hospice. pain, chronic, on fentanyl patch. Debility , progressive. * Case discussed with [employer] Yasmine. * Palliative care contact information provided to [facility] Dasha. * Palliative care to continue f/u during this hospitalization. . Time Spent Total Floor Time (mins): 32 (Total time to include review of medical records, physical exam, telephone call to [facility] and case discussion with [employer]) Face to Face Time (mins): 20 >50% Counseling/Coord of Care: Yes Attestation To help prompt me to consider important information that might be impacting today's encounter and assessment, information from prior notes written by myself or my colleagues may have been "brought forward" into today's note. My signature on this note, however, is an attestation that I personally performed the exam, history, and/or decision-making noted today, and, unless otherwise indicated, the interactions with patient, family, and staff as well as the review of records all occurred today. I also attest that the listed assessment and stated plan reflect my best clinical judgment today based on the combination of historical information, prior notes, and today's exam/ interactions. When time spent is documented, it refers only to time spent today by the signer, or if indicated, combined time spent today by collaborating physician/nurse practitioner. Enma Maciel Nov 24, 2016 16:48
--- NOTE | 2016-11-24 18:05 | HHI.PR ---
Subjective Remarks YO AA male with COPD,Fever, sob HR high on cardiazem drip Mild sob and wheezing Breathing better today opens eyes, tries to talk Objective Vital Signs Vital Signs Date Time Temp Pulse Resp B/P Pulse Ox O2 Delivery O2 Flow Rate FiO2 11/24/16 16:00 99.8 113 20 134/90 96 11/24/16 11:57 98.4 106 18 138/89 95 11/24/16 08:50 Nasal Cannula 2.00 50 11/24/16 08:22 98 Nasal Cannula 2.00 11/24/16 08:00 98.6 105 20 134/79 96 11/24/16 07:53 97 11/24/16 04:28 98.9 102 22 128/82 97 11/24/16 04:00 Nasal Cannula 2.00 11/24/16 00:09 97 Nasal Cannula 2.00 11/24/16 00:00 Nasal Cannula 2.00 11/23/16 23:48 98.9 112 24 119/73 97 11/23/16 21:00 98.6 111 24 122/71 96 11/23/16 20:01 113 11/23/16 20:00 Nasal Cannula 2.00 I/O 11/23/16 11/23/16 11/23/16 11/24/16 11/24/16 11/24/16 07:00 15:00 23:00 07:00 15:00 23:00 Intake Total 1013 ml 1266 ml 1169 ml 1057 ml 1358 ml Output Total 1000 ml 500 ml 400 ml 1500 ml Balance 1013 ml 266 ml 669 ml 657 ml -142 ml Intake Oral 0 ml 0 ml IV Total 673 ml 972 ml 766 ml 590 ml 1002 ml Tube Feeding 240 ml 294 ml 253 ml 267 ml 356 ml Other 100 ml 150 ml 200 ml Output Urine Total 1000 ml 500 ml 400 ml 1500 ml # Bowel Movements 0 0 Result Diagram: 11/22/1672411/22/16724 Objective Remarks GENERAL: MBMN Male mild sob SKIN: Warm and dry. HEAD: Normocephalic. EYES: No scleral icterus. No injection or drainage. NECK: Supple, trachea midline. No JVD or lymphadenopathy. CARDIOVASCULAR: Regular rate and rhythm without murmurs, gallops, or rubs. RESPIRATORY: Breath sounds equal bilaterally. No accessory muscle use. GASTROINTESTINAL: Abdomen soft, non-tender, nondistended. MUSCULOSKELETAL: No cyanosis, or edema. BACK: Nontender without obvious deformity. No CVA tenderness. A/P Assessment and Plan COPD exac UTI Sepsis Techycardia CVA Indwelling Mazariegos PLAN: IV Solumedrol Aerosol nebs Cardiazem for HR controll. Abx per ID Zosyn and Flagyl. Palliative care consulted Available prn over weekend. Darrick Roberson MD Nov 24, 2016 18:04
--- NOTE | 2017-01-13 18:42 | HHI.DS ---
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 (9) Lumbar spinal stenosis (10) History of CVA (cerebrovascular accident) (11) Hyperlipidemia (12) GERD (gastroesophageal reflux disease) (13) BPH (benign prostatic hyperplasia) (14) Obstipation (15) Abdominal pain (16) Encephalopathy acute (17) Debility (18) Thrombocytopenia (19) Peripheral neuropathy Procedures S/P Colonscopy (11/21/16)---> Large amount of stool in cecum and rest of colon, aggressive washing done, hemorrhoids, ulcer in rectum, most likely stercoral ulcer, large amount of fluid placed (750cc), retroflexed views revealed small internal thrombosed hemorrhoids, external hemorrhoids. Imaging Last Impressions Abdomen X-Ray 11/22/16 0000 Signed Impressions: Service Date/Time: Tuesday, November 22, 2016 21:22 - CONCLUSION: Interval placement of a nasogastric tube with the tip projected over the mid stomach. Luis Brennan MD Abdomen/Pelvis CT 11/20/16 0000 Signed Impressions: Service Date/Time: Sunday, November 20, 2016 16:54 - CONCLUSION: 1. Distention of cecum to about 11 cm with oral contrast within the cecum. There is air and stool throughout the large bowel with moderate constipation. Patient at risk for cecal volvulus. 2. Dependent atelectasis at the lung bases with small left pleural effusion. Mild ascites around the liver. Probable liver cirrhosis. 3. Distended distal esophagus with NG tube in stomach. Mazariegos catheter in bladder. Earl Santoro MD Renal Ultrasound 11/16/16 0000 Signed Impressions: Service Date/Time: October 16:50 - CONCLUSION: Study is limited. The right kidney is not seen clearly. The left kidney is without an acute abnormality. Mazariegos in the bladder. Arnoldo Coombs MD Chest X-Ray 11/16/16 0000 Signed Impressions: Service Date/Time: October 13:46 - CONCLUSION: Persistent hypoinflation with improving bibasilar atelectatic changes. Joni Young MD Chest CT 11/12/16 0000 Signed Impressions: Service Date/Time: Saturday, November 12, 2016 16:38 - CONCLUSION: Mild emphysematous changes. I do not see any consolidative changes. David Gates MD [facility] Course The patient is a 71-year-old -[place] male with significant past medical history of COPD, oxygen-dependent, also a history of respiratory failure in the past, hypothyroidism, previous CVA, hypertension and hyperlipidemia. The patient came to the ER because of the above problem. The patient was seen by the ER physician. The patient had a fever in the ER. The chest pain he was complaining about was in the middle of the chest and slightly toward the left side. It was constant. It is of moderate intensity. No other associated symptoms with it. He had some shortness of breath. There was no nausea or vomiting. There was no abdominal pain. Was evaluated in the ED, lab and imaging studies done. WBCs, hemoglobin, hematocrit within normal limits. Platelet count 148,000. Sodium 135, calcium 8, total bilirubin 1.2, AST 114. Troponin less than 0.02 x2. Albumin 3. TSH 0.554. PT 13.4, INR and APTT within normal limits. The urinalysis shows urine occult blood trace, turbidity hazy, nitrites positive, leukocyte esterase is large, RBCs 9, WBCs 99, urine bacteria moderate, urine mucus many. IMAGING STUDIES: X-ray of the chest was done. Impression showed small lung volumes bilaterally and increased density in the right lung base similar to August of 2016. 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 started on IV hydration, put on IV antibiotics. CT of chest done. Continue some of the home medications. Breathing treatments on a PRN basis. Continued on steroids Heparin for DVT prophylaxis. Proton pump inhibitor for GI prophylaxis. Pt.'s condition did not improve, it was complicated by exacerbation of comorbidities went into into tachycardiac, required Cardizem gtt which was later changed to PO Was noted constipated and impacted with dilated cecum stool softener ,s/p Fleet enema x 2 s/p mag citrate w modest results Required GI consultation who recommended work up Status post colonic decompression, with good results/GI input appreciated Started on tube feedings via NGT ID consulted to assist with antibiotics. cultures remained negative Continue Duonebs/oxygenTaper steroids Pulmonology also consulted. Pt. was a DNR status Pt. continued to declined, was encephalopathic Palliative care consulted. Overall prognosis appeared poor/hospice was appropriate POA decided on hospice. Pt. discharged to hospice Pt Condition on Discharge: Fair Discharge Disposition: Hospice/Med Facility Discharge Instructions DIET: Follow Instructions for: Soft Diet Fluid Restrictions: none Activities you can perform: Weight Bearing as Monster Other Activity Instructions: fall precautions Follow up Referrals: PCP Follow-up - 1 Week New Medications: Alprazolam (Xanax) 0.25 Mg Tab 0.25 MG PO Q8HR PRN ANXIETY #30 TAB Ciprofloxacin (Cipro) 500 Mg Tab 500 MG PO Q12HR Infection #14 TAB Diltiazem (Cardizem) 60 Mg Tab 60 MG PO QID afib #120 TAB Fentanyl Patch 72 HR (Duragesic Patch 72 HR) 75 Mcg/Hr Patch 1 PATCH T-DERMAL Q72H Pain Management #10 PKT Fluconazole (Diflucan) 100 Mg Tab 100 MG PO DAILY Infection #7 TAB Hydrocodone-Acetaminophen (Hydrocodone-Acetaminophen) 5-325 mg Tab 1 TAB PO Q4H PRN PAIN 1-10 #60 TAB Lactulose Liq (Lactulose Liq) 10 Gm/15 Ml Soln 30 ML PO QID co Days 10 ML Continued Medications: Acetaminophen (Mapap) 500 Mg Tab 500 MG PO Q4HR PRN PAIN Ref 0 TAB Albuterol Neb (Albuterol Neb) 0.63 Mg/3 Ml Neb 0.63 MG NEB Q4HR NEB PRN SHORTNESS OF BREATH #10 Ref 0 NEBULE Carbidopa-Levodopa (Sinemet) 25-100 Mg Tab 1 TAB PO Q8HR Parkinson Disease Mgmt #90 Ref [address] (Dul[address]) 20 Mg Capdr 20 MG PO BID Depression Control #30 Ref 0 CAP Ferrous Sulfate (Ferrous Sulfate) 325 Mg Tab 325 MG PO DAILY Nutritional Supplement #30 Ref 0 TAB Finasteride (Finasteride) 5 Mg Tab 5 MG PO DAILY Do not crush. Manage Prostate Problems #30 Ref 0 TAB Fluticasone-Vilanterol Inh (Breo Ellipta Inh) 100-25 Mcg/Act Inh 1 PUFF INH DAILY Use daily at the same time. COPD #1 Ref 0 INHALER Ipratropium-Albuterol Neb (Duoneb) 0.5-2.5 Mg/3 Ml Neb 1 NEBULE INH TID NEB SHORTNESS OF BREATH #120 Ref 0 NEBULE Levothyroxine (Levothyroxine) 150 Mcg Tab 150 MCG PO DAILY Thyroid #30 Ref 0 TAB Nitroglycerin SL (Nitroglycerin SL) 0.3 Mg Subl 0.3 MG SL DIRECTED ONE TABLET UNDER THE TONGUE NEEDED FOR CHEST PAIN, MAY REPEAT EVERY FIVE MINUTES FOR A TOTAL OF 3 DOSES OR CALL 911 IF NO RELIEF PRN CHEST PAIN #100 Ref 0 TAB.SL Pantoprazole Liq (Protonix Liq) 40 Mg Pkt 40 MG PO DAILY Reflux #30 Ref 0 PKT Prednisolone Acetate Opth Drops (Omnipred Opth Drops) 1% Susp 1 DROP RIGHT EYE DAILY Inflammation #1 Ref 0 BOTTLE Prednisone (Prednisone) 20 Mg Tab 20 MG PO DAILY Broncospasm Days 7 Ref 0 TAB Tamsulosin (Flomax) 0.4 Mg Cap 0.4 MG PO HS Manage Prostate Problems #30 Ref 0 CAP Discontinued Medications: Alprazolam (Xanax) 0.25 Mg Tab 0.25 MG PO Q8HR PRN ANXIETY Ref 0 TAB Diltiazem (Diltiazem) 30 Mg Tab 30 MG PO QID Angina #120 Ref 0 TAB Fentanyl Patch 72 HR (Duragesic Patch 72 HR) 75 Mcg/Hr Patch 75 MCG T-DERMAL Q72H Remove old patch when new one placed. Pain Management #10 Ref 0 PATCH Fluoxetine (Fluoxetine) 20 Mg Cap 20 MG PO DAILY Depression Control #30 Ref 0 CAP Fluticasone-Salmeterol Inh (Advair Diskus Inh) 250-50 Mcg/Blist Aer 1 PUFF INH BID Rinse mouth after use. COPD #1 Ref 0 INHALER Furosemide (Lasix) 20 Mg Tab 20 MG PO DAILY FLUID RETENTION #30 Ref 0 TAB Hydrocodone-Acetaminophen ([place]) 5-325 mg Tab 1 TAB PO Q4H PRN PAIN Ref 0 TAB Oxybutynin ER 24 HR (Ditropan XL 24 HR) 10 Mg Tab 10 MG PO BID UTI #30 Ref 0 TAB Mar Malloy Jan 13, 2017 18:42
== END 2016-11-24 20:21 | disposition hospice, inpatient (51) | DRG 698 ==
LOC: NEPE 10:00 → NEDA 11:56 → N04A 17:48
PROVIDERS: ADMIT Specialist; ATTEND Specialist
PROC: 3E1H88Z Irrigation of Lower GI using Irrigating Substance, Via Natural or Artificial Opening Endoscopic (ICD-10-PCS; principal; 2016-11-21 14:28)
DX: T83.511A Infection and inflammatory reaction due to indwelling urethral catheter, initial encounter (principal); A41.52 Sepsis due to Pseudomonas; G93.40 Encephalopathy, unspecified; J90 Pleural effusion, not elsewhere classified; Z51.5 Encounter for palliative care; R18.8 Other ascites; I69.351 Hemiplegia and hemiparesis following cerebral infarction affecting right dominant side; K56.7 Ileus, unspecified; K62.6 Ulcer of anus and rectum; J44.1 Chronic obstructive pulmonary disease with (acute) exacerbation; J98.11 Atelectasis; I48.91 Unspecified atrial fibrillation; G73.7 Myopathy in diseases classified elsewhere; D69.6 Thrombocytopenia, unspecified; G20 Parkinson's disease; I10 Essential (primary) hypertension; N39.0 Urinary tract infection, site not specified; E86.0 Dehydration; E78.00 Pure hypercholesterolemia, unspecified; N31.9 Neuromuscular dysfunction of bladder, unspecified; T36.8X5A Adverse effect of other systemic antibiotics, initial encounter; E03.9 Hypothyroidism, unspecified; E78.5 Hyperlipidemia, unspecified; N40.0 Benign prostatic hyperplasia without lower urinary tract symptoms; I73.9 Peripheral vascular disease, unspecified; L27.0 Generalized skin eruption due to drugs and medicaments taken internally; K56.41 Fecal impaction; I69.991 Dysphagia following unspecified cerebrovascular disease; G62.9 Polyneuropathy, unspecified; J45.909 Unspecified asthma, uncomplicated; E34.9 Endocrine disorder, unspecified; K21.9 Gastro-esophageal reflux disease without esophagitis; K74.60 Unspecified cirrhosis of liver; K64.4 Residual hemorrhoidal skin tags; K64.5 Perianal venous thrombosis; M48.06 Spinal stenosis, lumbar region; F41.9 Anxiety disorder, unspecified; Y92.239 Unspecified place in hospital as the place of occurrence of the external cause; Z66 Do not resuscitate; Z74.01 Bed confinement status; Z87.891 Personal history of nicotine dependence; Z99.3 Dependence on wheelchair; Z99.81 Dependence on supplemental oxygen
CPT/HCPCS: 36600; 71010; 71250; 74000; 74177; 76775; 76937; 80048; 80053; 80076; 81001; 82140; 82805; 83605; 83735; 84443; 84484; 85025; 85027; 86022; 86850; 86900; 86901; 87040; 87086; 87641; 87804; 93005; 94640; 94664; 94762; 96360; 96365; 96367; J0692; J1450; J1644; J2212; J2543; J2920; J3370; J7030; J7050; J7512; J7613; Q9963; Q9967